=== PATIENT | female | born 1935 | race Caucasian/White ===

== ENCOUNTER 2019-02-15 09:03 | Emergency (ER) | payer MEDICARE, OTHER ==
[~2019-02-15] VITALS: Ht 157.5 cm; Wt 72.7 kg
[2019-02-15] MEDS ORDERED: LOSA50TA88 PO ×2 (09:16→10:46)
[2019-02-15] MEDS ORDERED: METO50TA7 PO ×2 (09:16→10:46)
[2019-02-15] MEDS ORDERED: ABIL1TAB13 PO ×2 (09:16→10:46)
[2019-02-15] MEDS ORDERED: DEPA1TAB PO (09:16)
[2019-02-15] MEDS ORDERED: CELE10TA PO ×2 (09:17→10:46)
[2019-02-15] MEDS ORDERED: AMLO-183 PO ×2 (09:18→10:46)
[2019-02-15] MEDS ORDERED: LEVO50TA5 PO ×2 (09:18→10:46)
[2019-02-15] MEDS ORDERED: RANI15TA PO (09:18)
[2019-02-15] MEDS ORDERED: IBAN150T6 PO ×2 (09:18→10:46)
[2019-02-15 10:27] VITALS: BP 137/69
[2019-02-15] MEDS ORDERED: DIVA1TAB48 PO (10:46)
[2019-02-15] MEDS ORDERED: RANI1TAB38 PO (10:46)
== END 2019-02-15 11:00 | disposition home or self-care (01) ==
LOC: M ED 09:03
DX: Z76.0 Encounter for issue of repeat prescription (principal); I10 Essential (primary) hypertension; E78.5 Hyperlipidemia, unspecified; E03.9 Hypothyroidism, unspecified; F33.9 Major depressive disorder, recurrent, unspecified; F41.9 Anxiety disorder, unspecified; Z79.899 Other long term (current) drug therapy; Z79.890 Hormone replacement therapy

== ENCOUNTER → 2019-03-13 | Outpatient (REF) | payer MEDICARE, OTHER ==
[~2019-03-13] MED LIST: ABIL1TAB13 PO; AMLO-183 PO; CELE10TA PO; DEPA1TAB PO; DIVA1TAB48 PO; IBAN150T6 PO; LEVO50TA5 PO; LOSA50TA88 PO; METO50TA7 PO; RANI15TA PO; RANI1TAB38 PO
[2019-03-13 16:49] LABS: BASO % 0.5 % (0.0-1.0); EOS # 0.3 10^3/uL (0.0-0.50); EOS % 3.8 % (0.0-3.0); HEMATOCRIT 41.3 % (36.0-47.0); HEMOGLOBIN 13.4 g/dl (12.0-15.5); LYMPH # 2.3 10^3/uL (1.5-4.5); LYMPH % 31.6 % (24.0-44.0); MEAN CORPUSCULAR HEMOGLOBIN 31.3 pg (27.0-33.0); MEAN CORPUSCULAR HGB CONC 32.4 g/dl (32.0-36.5); MEAN CORPUSCULAR VOLUME 96.5 fl (80.0-96.0); MONO # 0.8 10^3/uL (0.0-0.8); MONO % 11.3 % (0.0-5.0); NEUTROPHILS # 3.8 10^3/uL (1.8-7.7); NEUTROPHILS % 52.5 % (36.0-66.0); PLATELET COUNT, AUTOMATED 183 10^3/uL (150-450); RED BLOOD COUNT 4.28 10^6/uL (4.00-5.40); WHITE BLOOD COUNT 7.3 10^3/uL (4.0-10.0)
[2019-03-13 17:20] LABS: CALCIUM LEVEL 9.4 MG/DL (8.8-10.2); CHOLESTEROL RISK RATIO 3.407 (<5); CREATININE FOR GFR 1.21 MG/DL (0.55-1.30); GLOMERULAR FILTRATION RATE 45.4 (>32); POTASSIUM SERUM 4.6 MEQ/L (3.5-5.1); THYROID STIMULATING HORMONE 2.41 uIU/ML (0.358-3.740)
== END ==
LOC: M SFHCPLAZ 14:35
PROVIDERS: ATTEND Family Medicine
DX: E03.9 Hypothyroidism, unspecified (principal); E78.5 Hyperlipidemia, unspecified; I10 Essential (primary) hypertension; R00.1 Bradycardia, unspecified
CPT/HCPCS: 80048; 80061; 84443; 85025; G0463

== ENCOUNTER → 2019-04-17 | Outpatient (CLI) | payer MEDICARE, OTHER ==
--- NOTE | 2019-04-26 10:52 | DEXA ---
AP SPINE L1 - L4 1.130 -0.5 1.4 LT FEMUR TOTAL 0.723 -2.3 -0.1 LT NECK 0.714 -2.3 -0.1 RT FEMUR TOTAL 0.727 -2.2 -0.1 RT NECK 0.738 -2.2 0.1 OTHER COMMENTS: Normal bone densitometry of the spine. There is low bone density of the hips. FOLLOW-UP: Recommendation for the next bone density exam: 2 years. MELINDA
== END ==
LOC: M WHC 12:57
PROVIDERS: ATTEND Family Medicine
DX: M81.0 Age-related osteoporosis without current pathological fracture (principal)

== ENCOUNTER → 2019-04-21 | Outpatient (REF) | payer MEDICARE, OTHER ==
[2019-04-21 17:11] LABS: CHOLESTEROL RISK RATIO 3.68 (<5)
== END ==
LOC: M SFHCPLAZ 14:46
DX: E78.5 Hyperlipidemia, unspecified (principal); R45.86 Emotional lability

== ENCOUNTER → 2019-04-25 | Outpatient (REF) | payer MEDICARE, OTHER ==
[2019-04-25 14:17] LABS: FOLATE 11.4 NG/ML
[2019-04-30 15:15] LABS: CERULOPLASMIN 26.1 mg/dL (19.0-39.0); VITAMIN B1 LEVEL WHOLE BLOOD 148.8 nmol/L (66.5-200.0); VITAMIN B6,PYRIDOXAL PHOSPHATE 2.3 ug/L (2.0-32.8); VITAMIN E(ALPHA TOCOPHEROL) 9.4 mg/L (9.0-29.0); VITAMIN E(GAMMA TOCOPHEROL) 0.8 mg/L (0.5-4.9)
== END ==
LOC: M LABDRAW1 12:40
PROVIDERS: ATTEND Psychiatry & Neurology Neurology
DX: D51.9 Vitamin B12 deficiency anemia, unspecified (principal); E51.9 Thiamine deficiency, unspecified; R26.9 Unspecified abnormalities of gait and mobility; R41.3 Other amnesia; E83.01 Wilson's disease

== ENCOUNTER → 2019-07-26 | Outpatient (REF) | payer MEDICARE, OTHER ==
[~2019-07-26] MED LIST changes: +ASPI81TA85 PO; +BACI500O21 TOP
[2019-07-26 16:18] LABS: APPEARANCE, URINE HAZY (CLEAR); BACTERIA, URINE AUTO 3+ (NEGATIVE); BILIRUBIN, URINE AUTO NEGATIVE (NEGATIVE); BLOOD, URINE BLOOD 1+ (NEGATIVE); COLOR, URINE YELLOW (YELLOW); GLUCOSE, URINE (UA) AUTO NEGATIVE (NEGATIVE); KETONE, URINE AUTO NEGATIVE (NEGATIVE); LEUKOCYTE ESTERASE, URINE AUTO 3+ (NEGATIVE); NITRITE, URINE AUTO NEGATIVE (NEGATIVE); PROTEIN, URINE AUTO NEGATIVE (NEGATIVE); RBC, URINE AUTO 2 /HPF (0-3); SPECIFIC GRAVITY URINE AUTO 1.012 (1.002-1.035); SQUAMOUS EPITHELIAL CELL UR AU 0 /HPF (0-6); UROBILINOGEN, URINE AUTO 0.2 mg/dL (0.0-2.0); WBC, URINE AUTO 33 /HPF (0-3)
== END ==
LOC: M SFHCLERA 13:39
PROVIDERS: ATTEND Family Medicine
DX: R35.0 Frequency of micturition (principal)

== ENCOUNTER 2019-07-30 07:47 | Emergency (ER) | payer MEDICARE, OTHER ==
[~2019-07-30] VITALS: Ht 157.5 cm; Wt 72.5 kg
[~2019-07-30 07:47] MED LIST changes: -ASPI81TA85 PO; -BACI500O21 TOP
[2019-07-30] MEDS ORDERED: ASPI81TA85 PO (08:26)
[2019-07-30] MEDS ORDERED: LIDOCAINE W/EPINEPHRINE 1% 20ML VIAL SC ONE (08:30)
--- NOTE | 2019-07-30 08:50 | REP ---
Clinical: Trauma. Fall. Technique: AP, lateral, bilateral oblique views of the left ankle. Findings: Osteopenia and generalized age-related changes are appreciated. No acute fracture or dislocation. Joint spaces and ankle mortise are intact. Impression: No acute fracture or dislocation. Electronically Signed by Dom Hernandez MD 07/30/2019 08:42 A
--- NOTE | 2019-07-30 08:52 | REP ---
Clinical: Trauma. Technique: AP, lateral, bilateral oblique views of the left foot. Findings: Osteopenia and degenerative changes are appreciated. Evidence for old injury involving the fifth toe phalanx. No obvious acute fracture or dislocation appreciated. No subcutaneous emphysema. No foreign body. Impression: No obvious acute fracture or dislocation. Electronically Signed by Dom Hernandez MD 07/30/2019 08:43 A
[2019-07-30] MEDS ORDERED: BACI500O21 TOP (11:04)
[2019-07-30 11:07] VITALS: BP 131/64
== END 2019-07-30 11:23 | disposition home or self-care (01) ==
LOC: M ED 07:47
DX: S93.402A Sprain of unspecified ligament of left ankle, initial encounter (principal); S51.811A Laceration without foreign body of right forearm, initial encounter; W19.XXXA Unspecified fall, initial encounter; Y92.099 Unspecified place in other non-institutional residence as the place of occurrence of the external cause; Y93.9 Activity, unspecified; Y99.9 Unspecified external cause status; F32.9 Major depressive disorder, single episode, unspecified; I10 Essential (primary) hypertension; E03.9 Hypothyroidism, unspecified; K21.9 Gastro-esophageal reflux disease without esophagitis; Z87.891 Personal history of nicotine dependence; Z79.82 Long term (current) use of aspirin; Z79.899 Other long term (current) drug therapy

== ENCOUNTER → 2019-09-26 | Outpatient (CLI) | payer MEDICARE, OTHER ==
[~2019-09-26] MED LIST changes: +ASPI81TA85 PO; +BACI500O21 TOP
--- NOTE | 2019-09-26 14:24 | REP ---
Acute abdominal series of three views including PA chest and supine upright abdomen: PA chest: There are no comparisons. Lung ch are clear. Cardiac size is normal. The shakira, mediastinum, skeletal structures are unremarkable. There is no free subdiaphragmatic air. The right hemidiaphragm is elevated. There are postsurgical changes in the right humeral head and neck. Impression: There is no free subdiaphragmatic air. Abdomen, supine upright views: The bowel gas pattern is normal. There are calcifications in the pelvis, likely phleboliths. Abdominal aortic aneurysm versus abdominal aortic tortuosity. There is degenerative disc disease in the lumbar spine. There is bilateral hip osteoarthritis. Electronically Signed by Aaron Castillo MD 09/26/2019 01:14 P
== END ==
LOC: M LRY 11:52
PROVIDERS: ATTEND Family Medicine
DX: M51.36 Other intervertebral disc degeneration, lumbar region (principal); M16.0 Bilateral primary osteoarthritis of hip; K59.00 Constipation, unspecified; R35.0 Frequency of micturition
CPT/HCPCS: 74021; 81002; 87088; 87186; G0463

== ENCOUNTER → 2019-09-26 | Outpatient (REF) | payer MEDICARE, OTHER | LOC: M SFHCLERA 12:00 | PROVIDERS: ATTEND Family Medicine | DX: R35.0 Frequency of micturition (principal) ==

== ENCOUNTER → 2019-10-11 | Outpatient (REF) | payer MEDICARE, OTHER ==
[2019-10-11 17:21] LABS: APPEARANCE, URINE CLOUDY (CLEAR); BACTERIA, URINE AUTO NEGATIVE (NEGATIVE); BILIRUBIN, URINE AUTO NEGATIVE (NEGATIVE); BLOOD, URINE BLOOD 1+ (NEGATIVE); COLOR, URINE YELLOW (YELLOW); GLUCOSE, URINE (UA) AUTO NEGATIVE (NEGATIVE); KETONE, URINE AUTO NEGATIVE (NEGATIVE); LEUKOCYTE ESTERASE, URINE AUTO 3+ (NEGATIVE); MUCUS, URINE SMALL (NEGATIVE); NITRITE, URINE AUTO NEGATIVE (NEGATIVE); PROTEIN, URINE AUTO NEGATIVE (NEGATIVE); RBC, URINE AUTO 54 /HPF (0-3); SPECIFIC GRAVITY URINE AUTO 1.015 (1.002-1.035); SQUAMOUS EPITHELIAL CELL UR AU 3 /HPF (0-6); TRANSITIONAL EPITHELIAL AUTO 5 /HPF; UROBILINOGEN, URINE AUTO 0.2 mg/dL (0.0-2.0); WBC, URINE AUTO TNTC /HPF (0-3)
== END ==
LOC: M SFHCLERA 11:10
PROVIDERS: ATTEND Family Medicine
DX: R35.0 Frequency of micturition (principal)

== ENCOUNTER → 2019-11-02 | Outpatient (REF) | payer MEDICARE, OTHER ==
[~2019-11-02] MED LIST changes: +ARIC1TAB PO; +METO1TAB87 PO; +OMEP40CA97 PO; +SULF1TAB93 PO; +SYNT50TA PO
[2019-11-02 16:31] LABS: APPEARANCE, URINE CLOUDY (CLEAR); BACTERIA, URINE AUTO 3+ (NEGATIVE); BILIRUBIN, URINE AUTO NEGATIVE (NEGATIVE); BLOOD, URINE BLOOD 1+ (NEGATIVE); CALCIUM OXALATE CRYSTALS LARGE; COLOR, URINE YELLOW (YELLOW); GLUCOSE, URINE (UA) AUTO NEGATIVE (NEGATIVE); KETONE, URINE AUTO NEGATIVE (NEGATIVE); LEUKOCYTE ESTERASE, URINE AUTO 3+ (NEGATIVE); MUCUS, URINE SMALL (NEGATIVE); NITRITE, URINE AUTO NEGATIVE (NEGATIVE); PROTEIN, URINE AUTO NEGATIVE (NEGATIVE); RBC, URINE AUTO 23 /HPF (0-3); SPECIFIC GRAVITY URINE AUTO 1.023 (1.002-1.035); SQUAMOUS EPITHELIAL CELL UR AU 0 /HPF (0-6); UROBILINOGEN, URINE AUTO 0.2 mg/dL (0.0-2.0); WBC, URINE AUTO TNTC /HPF (0-3)
== END ==
LOC: M SFHCLERA 15:53
PROVIDERS: ATTEND Nurse Practitioner Family
DX: R39.9 Unspecified symptoms and signs involving the genitourinary system (principal)
CPT/HCPCS: 81001; 81002; 87088; 87186; G0463

== ENCOUNTER 2019-11-14 14:01 | Inpatient (IN) | payer MEDICARE, OTHER ==
[~2019-11-14] VITALS: Ht 160 cm; Wt 79.9 kg
[2019-11-14] MEDS: NS 1,000 ML IV SCH ×3 (00:30→21:05)
[~2019-11-14 14:01] MED LIST changes: -ARIC1TAB PO; -METO1TAB87 PO; -OMEP40CA97 PO; -SULF1TAB93 PO; -SYNT50TA PO
[2019-11-14 14:40] LABS: BASO # 0.1 10^3/uL (0.0-0.2); BASO % 0.5 % (0.0-1.0); EOS # 0.4 10^3/uL (0.0-0.5); EOS % 3.8 % (0.0-3.0); HEMATOCRIT 37.2 % (36.0-47.0); HEMOGLOBIN 12.3 g/dl (12.0-15.5); LYMPH # 1.7 10^3/uL (1.5-5.0); LYMPH % 16.9 % (24.0-44.0); MEAN CORPUSCULAR HEMOGLOBIN 30.8 pg (27.0-33.0); MEAN CORPUSCULAR HGB CONC 33.1 g/dl (32.0-36.5); MONO # 1.1 10^3/uL (0.0-0.8); MONO % 10.9 % (0.0-5.0); NEUTROPHILS # 6.6 10^3/uL (1.5-8.5); NEUTROPHILS % 67.5 % (36.0-66.0); PLATELET COUNT, AUTOMATED 220 10^3/uL (150-450); WHITE BLOOD COUNT 9.8 10^3/uL (4.0-10.0)
--- NOTE | 2019-11-14 14:59 | REP ---
Portable chest x-ray: Single view. History: Trauma. Comparison chest x-ray: September 26, 2019. Findings: Right hemidiaphragm remains somewhat elevated. Monitoring electrodes are seen. Lungs are well inflated and clear. Heart is not felt to be enlarged. The thoracic aorta is calcific. There is minimal linear fibrosis in the left perihilar region unchanged. Old post-traumatic and postsurgical changes are noted in the right humeral head. No acute bony abnormality. Impression: Elevated right hemidiaphragm. Linear fibrosis left perihilar region. Otherwise no acute disease. Electronically Signed by Rohan Clinton MD 11/14/2019 02:51 P
[2019-11-14 15:16] LABS: ALBUMIN 3.8 GM/DL (3.2-5.2); ALT/SGPT 18 U/L (12-78); BILIRUBIN,DIRECT 0.2 MG/DL (0.0-0.2); BILIRUBIN,TOTAL 0.4 MG/DL (0.2-1.0); BLOOD UREA NITROGEN 38 MG/DL (7-18); CALCIUM LEVEL 9.5 MG/DL (8.8-10.2); CARBON DIOXIDE LEVEL 20 MEQ/L (21-32); CHLORIDE LEVEL 108 MEQ/L (98-107); CK-MB VALUE MASS 7.5 NG/ML (<3.6); CPK CREATINE PHOSPHOKINASE 250 U/L (26-192); CREATININE FOR GFR 1.91 MG/DL (0.55-1.30); GLOMERULAR FILTRATION RATE 26.7 (>32); GLUCOSE, FASTING 100 MG/DL (70-100); POTASSIUM SERUM 4.6 MEQ/L (3.5-5.1); SODIUM LEVEL 138 MEQ/L (136-145); TOTAL PROTEIN 7.9 GM/DL (6.4-8.2); TROPONIN I < 0.02 NG/ML (< 0.10)
--- NOTE | 2019-11-14 15:24 | REP ---
CT BRAIN WITHOUT IV CONTRAST: CT brain performed without IV contrast. Coronal reconstruction images are performed. There is moderate atrophy. There is no midline shift or mass effect. There are mild periventricular small vessel ischemic changes likely chronic in nature. There is no acute intracranial hemorrhage or extra-axial fluid collection. No skull fracture is seen. There are vascular calcifications in the carotid siphons. IMPRESSION: Chronic atrophy and periventricular small vessel ischemic change. No acute intracranial hemorrhage or skull fracture. Electronically Signed by Aaron Wilkinson MD 11/15/2019 09:12 A
--- NOTE | 2019-11-14 15:34 | REP ---
CT CERVICAL SPINE: CT cervical spine performed without the use of intravenous contrast. Sagittal and coronal reconstruction images are performed. There is no evidence of compression fracture. Vertebral bodies are normal in height and well aligned. There is no prevertebral soft tissue swelling. There is moderate diffuse spurring. There is moderate disc space narrowing at C3-4, C4-5 and C5-6 with mild disc space narrowing at C6-7. There is diffuse narrowing, sclerosis and spurring at the posterior facet joints. Small disc protrusions and posterior spurs are seen at multiple levels without significant spinal stenosis. IMPRESSION: Diffuse degenerative changes. No evidence of acute fracture or dislocation. Electronically Signed by Aaron Wilkinson MD 11/15/2019 09:14 A
--- NOTE | 2019-11-14 15:35 | REP ---
CT MAXILLOFACIAL BONES: Axial CT maxillofacial bones performed. Sagittal and coronal reconstruction images are performed. There is no evidence of fracture of the maxillofacial bones. Mandible and zygomatic arches are intact. Paranasal sinuses demonstrate no air fluid levels. Globes are intact. IMPRESSION: No evidence of maxillofacial bone fracture. Electronically Signed by Aaron Wilkinson MD 11/15/2019 09:15 A
[2019-11-14] MEDS ORDERED: SYNT50TA PO (16:37)
[2019-11-14] MEDS ORDERED: SULF1TAB93 PO (16:37)
[2019-11-14] MEDS ORDERED: OMEP40CA97 PO (16:41)
[2019-11-14] MEDS ORDERED: METO1TAB87 PO (16:42)
--- NOTE | 2019-11-14 18:11 | HPEPDOC ---
[facility] Medical History & Physical Date of Admission Nov 14, 2019 Date of Service: Nov 14, 2019 History and Physical CHIEF COMPLAINT: Altered mental status, slurred speech HISTORY OF PRESENT ILLNESS: 84 yo female brought to ED by family for concerns of roughly two week history of worsening altered mental status, falls and slurred speech. at bedside notes visual and auditory hallucinations. She follows with PCP locally, but moved here from [place], where he states a doctor there told him she has Parkinson's disease. PAST MEDICAL HISTORY: #HTN #depresssion #osteoporosis #GERD #hypothyroidism ALLERGIES: Please see below. HOME MEDICATIONS: Please see below. PHYSICAL EXAMINATION: VITAL SIGNS: See below GENERAL APPEARANCE: elderly, frail HEENT: NC/AT, EOMI, PERRL CARDIOVASCULAR: +S1S2, RRR LUNGS: CTA B/L ABDOMEN: soft, NT, +BS EXTREMITIES: no edema NEUROLOGICAL: no gross focal deficits, sensation grossly intact throughout, strength 5/5 B/L upper/lower extremities PSYCHIATRIC: awake, alert, oriented to person, place with prompting LABORATORY DATA: See below. MICROBIOLOGY: Please see below. ASSESSMENT: 84 yo female for altered mental status, slurred speech, visual/auditory hallucinations and falls, PMHx HTN, dyslipidemia, GERD, hypothyroidism, possibly Parkinson's. #AMS - unclear etiology - evaluated for infectious process - parkinson's? worsening baseline dementia? #falls - PT/OT #slurred speech - CT negative for CVA - MRI/MRA pending #HTN - continue home meds - ACEI on hold #ERLINDA - IV fluids - UA unrevealing - hold nephrotoxic medications - was on bactrim for UTI #hypothyroidism - continue synthroid #OP #GERD - continue PPI #depression - abilify, celexa #DVT prophylaxis - heparin sc Vital Signs Vital Signs Date Time Temp Pulse Resp B/P (MAP) Pulse Ox O2 Delivery O2 Flow Rate FiO2 11/14/19 16:07 58 118/63 (81) 63 128/58 (81) 11/14/19 16:00 18 95 Room Air 11/14/19 14:31 97.7 Laboratory Data Labs 24H Laboratory Tests 2 11/14/19 14:17: Immature Granulocyte % (Auto) 0.4, Neutrophils (%) (Auto) 67.5H, Lymphocytes (%) (Auto) 16.9L, Monocytes (%) (Auto) 10.9H, Eosinophils (%) (Auto) 3.8H, Basophils (%) (Auto) 0.5, Neutrophils # (Auto) 6.6, Lymphocytes # (Auto) 1.7, Monocytes # (Auto) 1.1H, Eosinophils # (Auto) 0.4, Basophils # (Auto) 0.1, Nucleated Red Blood Cells % (auto) 0.0, Anion Gap 10, Glomerular Filtration Rate 26.7L, Lactic Acid Level 2.6*H, Calcium Level 9.5, Total Bilirubin 0.4, Direct Bilirubin 0.2, Aspartate Amino Transf (AST/SGOT) 26, Alanine Aminotransferase (ALT/SGPT) 18, Alkaline Phosphatase 169H, Total Creatine Kinase 250H, Creatine Kinase MB 7.5H, Creatine Kinase MB Relative Index 3.00, Troponin I < 0.02, Total Protein 7.9, Albumin 3.8, Albumin/Globulin Ratio 0.93L, Thyroid Stimulating Hormone (TSH) 1.090 11/14/19 16:01: Urine Color YELLOW, Urine Appearance HAZY, Urine pH 5.0, Urine Specific [place] 1.019, Urine Protein NEGATIVE, Urine Glucose (UA) NEGATIVE, Urine Ketones TRACEH, Urine Blood NEGATIVE, Urine Nitrite NEGATIVE, Urine Bilirubin NEGATIVE, Urine Urobilinogen 0.2, Urine Leukocyte Esterase NEGATIVE, Urine WBC (Auto) 1, Urine RBC (Auto) 0, Urine Hyaline Casts (Auto) 25, Urine Bacteria (Auto) NEGATIVE, Urine Squamous Epithelial Cells 0, Urine Mucus (Auto) SMALL, Urine Sperm (Auto) CBC/BMP Laboratory Tests 11/14/19 14:17 Microbiology Microbiology 11/14/19 Blood Culture, Received Pending 11/14/19 Blood Culture, Received Pending Home Medications Scheduled Amlodipine/Atorvastatin (Amlodipine-Atorvast 5-10 mg) 1 Each Tablet, 1 TAB PO DAILY Aripiprazole (Abilify) 2 Mg Tablet, 2 MG PO QHS Aspirin (Aspir 81) 81 Mg Tablet.dr, 81 MG PO DAILY Citalopram Hydrobromide (Celexa) 10 Mg Tablet, 10 MG PO DAILY Ibandronate Sodium (Ibandronate Sodium) 150 Mg Tablet, 150 MG PO QMONTH Levothyroxine Sodium (Synthroid) 50 Mcg Tablet, 50 MCG PO DAILY Losartan Potassium (Losartan Potassium) 50 Mg Tablet, 50 MG PO DAILY Metoprolol Tartrate (Metoprolol Tartrate) 25 Mg Tablet, 25 MG PO BID Omeprazole (Omeprazole) 40 Mg Capsule.dr, 40 MG PO DAILY Sulfamethoxazole/Trimethoprim (Sulfamethoxazole-Tmp Ds Tablet) 1 Each Tablet, 1 TAB PO BID LAST DOSE ON THE NIGHT OF 11/14/19 Allergies Coded Allergies: No Known Allergies (Unverified , 02/15/19) A-FIB/CHADSVASC A-FIB History Current/History of A-Fib/PAF?: No Current PO Anticoag Therapy: No ENRIKE KOWALSKI MD Nov 14, 2019 16:33
[2019-11-14 19:01] LABS: CK-MB VALUE MASS 6.1 NG/ML (<3.6); CPK CREATINE PHOSPHOKINASE 214 U/L (26-192); MB/CK RELATIVE INDEX 2.85 (< OR =4); TROPONIN I < 0.02 NG/ML (< 0.10)
--- NOTE | 2019-11-14 19:24 | REPVR ---
PROCEDURE INFORMATION: Exam: MR Head Without Contrast Exam date and time: 11/14/2019 7:14 PM Age: 84 years old Clinical indication: Altered mental status/memory loss; Confusion or disorientation; Patient HX: Confusion disorientation; Additional info: CVA TECHNIQUE: Imaging protocol: MR of the head without contrast. COMPARISON: CT Head without contrast 11/14/2019 2:39 PM FINDINGS: Brain: Multiple foci of T2 lengthening are demonstrated in the periventricular and centrum semiovale white matter consistent with age-related small vessel gliosis. There is moderate age related parenchymal volume loss. Ventricles: The degree of ventricular dilatation is normal for age and/or degree of atrophy present. Bones/joints: Unremarkable. Soft tissues: Unremarkable. Sinuses: Normal as visualized. No acute sinusitis. Mastoid air cells: Normal as visualized. No mastoid effusion. Orbits: Unremarkable. 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 IMPRESSION: 1. Multiple foci of T2 lengthening are demonstrated in the periventricular and centrum semiovale white matter consistent with age-related small vessel gliosis. 2. The degree of ventricular dilatation is normal for age and/or degree of atrophy present. 3. 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 4. No acute intracranial findings. Electronically signed by: Nj Corrales On 11/14/2019 19:23:58 PM
--- NOTE | 2019-11-14 19:28 | REPVR ---
PROCEDURE INFORMATION: Exam: MR Angiogram Head Without Contrast, Arteries Exam date and time: 11/14/2019 7:14 PM Age: 84 years old Clinical indication: Cognitive deficit; Altered mental status; Patient HX: Confusion disorientation; Additional info: CVA TECHNIQUE: Imaging protocol: MR angiogram head without contrast. Exam focused on the arteries. 3D rendering: MIP and/or 3D reconstructed images were created by the technologist. COMPARISON: CT Head without contrast 11/14/2019 2:39 PM FINDINGS: Right internal carotid artery: Luminal irregularity in the carotid siphon and cavernous carotid on the right consistent with mild atherosclerosis. No significant stenosis. Right anterior cerebral artery: No occlusion or significant stenosis. No aneurysm. Right middle cerebral artery: No occlusion or significant stenosis. No aneurysm. Right posterior cerebral artery: No occlusion or significant stenosis. No aneurysm. Right vertebral artery: No occlusion or significant stenosis. No aneurysm. Left internal carotid artery: Luminal irregularity in the carotid siphon and cavernous carotid on the left consistent with mild atherosclerosis. No significant stenosis. Left anterior cerebral artery: No occlusion or significant stenosis. No aneurysm. Left middle cerebral artery: No occlusion or significant stenosis. No aneurysm. Left posterior cerebral artery: No occlusion or significant stenosis. No aneurysm. Left vertebral artery: No occlusion or significant stenosis. No aneurysm. Basilar artery: Tortuous basilar artery. Other findings: Motion artifact degrades the images. IMPRESSION: 1. Mild atherosclerotic changes demonstrated in the carotid siphons and cavernous carotid arteries bilaterally. 2. Tortuous basilar artery. 3. Motion artifact degrades the images and limits interpretation. Electronically signed by: Nj Corrales On 11/14/2019 19:28:04 PM
[2019-11-14 19:55] VITALS: BP 125/58
--- NOTE | 2019-11-14 20:17 | ECGEPIP ---
[facility] - ED Test Date: 2019-11-14 Pat Name: DANNA GUZMAN Department: Room: - Gender: Female Tufter Operator: : 1935 Requested By: SONDRA GONZALEZ Order Number: [id number] Reading MD: Olivia Santana Measurements Intervals [place] Rate: 58 P: 29 NE: 140 QRS: -49 QRSD: 118 T: -15 QT: 457 QTc: 451 Interpretive Statements SINUS BRADYCARDIA INCOMPLETE RIGHT BUNDLE BRANCH BLOCK LEFT ANTERIOR FASCICULAR BLOCK MINIMAL VOLTAGE CRITERIA FOR LVH, CONSIDER NORMAL VARIANT MODERATE T-WAVE ABNORMALITY, CONSIDER ANTERIOR ISCHEMIA NO PRIOR Electronically Signed on 11-14-2019 20:16:27 EDT by Olivia Santana
[2019-11-14] MEDS: HEPARIN SOD (PORCINE) 5000 UNITS/ML VIAL (J1644 PER 1000UNITS) SQ SCH (21:04)
[2019-11-14] MEDS: METOPROLOL TART 25 MG TABLET PO SCH (21:05)
[2019-11-14] MEDS: ARIPiprazole 2 MG TAB PO SCH (21:07)
[2019-11-14 23:59] VITALS: BP 138/67
[2019-11-15 04:00] VITALS: BP 118/58
[2019-11-15 05:30] LABS: HEMATOCRIT 31.4 % (36.0-47.0); MEAN CORPUSCULAR HEMOGLOBIN 30.7 pg (27.0-33.0); MEAN CORPUSCULAR HGB CONC 32.8 g/dl (32.0-36.5); MEAN CORPUSCULAR VOLUME 93.5 fl (80.0-96.0); PLATELET COUNT, AUTOMATED 178 10^3/uL (150-450); RED BLOOD COUNT 3.36 10^6/uL (4.00-5.40); WHITE BLOOD COUNT 7.2 10^3/uL (4.0-10.0)
[2019-11-15 05:43] LABS: HEMOGLOBIN 10.3 g/dl (12.0-15.5)
[2019-11-15 05:46] LABS: ALBUMIN 3.2 GM/DL (3.2-5.2); BILIRUBIN,TOTAL 0.4 MG/DL (0.2-1.0); CALCIUM LEVEL 8.4 MG/DL (8.8-10.2); CREATININE FOR GFR 1.5 MG/DL (0.55-1.30); GLOMERULAR FILTRATION RATE 35.3 (>32); POTASSIUM SERUM 4.2 MEQ/L (3.5-5.1); TOTAL PROTEIN 6.4 GM/DL (6.4-8.2)
[2019-11-15] MEDS: LEVOTHYROXINE 50MCG TABLET (0.05MG) PO SCH (06:05)
[2019-11-15 08:00] VITALS: BP 132/60
[2019-11-15] MEDS: METOPROLOL TART 25 MG TABLET PO SCH ×2 (10:06→20:18)
[2019-11-15] MEDS: ASPIRIN 81 MG ENTERIC TAB PO SCH (10:07)
[2019-11-15] MEDS: amLODIPine 5 MG TAB PO SCH (10:08)
[2019-11-15] MEDS: OMEPRAZOLE 20 MG CAP PO SCH (10:08)
[2019-11-15] MEDS: HEPARIN SOD (PORCINE) 5000 UNITS/ML VIAL (J1644 PER 1000UNITS) SQ SCH ×2 (10:08→20:17)
[2019-11-15] MEDS: ATORVASTATIN 10 MG TAB PO SCH (10:08)
--- NOTE | 2019-11-15 10:26 | IPNPDOC ---
Text Note Date of Service The patient was seen on 11/15/19. NOTE S: Patient seen and examined at bedside. Patient sleeping on arrival, vitals stable. O: PHYSICAL EXAMINATION: VITAL SIGNS: See below GENERAL APPEARANCE: elderly, frail HEENT: NC/AT CARDIOVASCULAR: +S1S2, RRR LUNGS: CTA B/L ABDOMEN: soft, NT, +BS EXTREMITIES: no edema LABORATORY DATA: See below. MICROBIOLOGY: Please see below. ASSESSMENT: 84 yo female for altered mental status, slurred speech, visual/auditory hallucinations and falls, PMHx HTN, dyslipidemia, GERD, hypo thyroidism, possibly Parkinson's. #AMS - parkinson's? worsening baseline dementia? - neurology c/s pending #falls - PT/OT #slurred speech - CT negative for CVA - MRI/MRA pending #HTN - continue home meds - ACEI on hold #ERLINDA - improving - IV fluids - UA unrevealing - hold nephrotoxic medications - was on bactrim for UTI #hypothyroidism - continue synthroid #OP #GERD - continue PPI #depression - abilify, celexa #DVT prophylaxis - heparin sc VS,Fishbone, I+O VS, Fishbone, I+O Laboratory Tests 11/14/19 14:17 11/15/19 04:56 Vital Signs Date Time Temp Pulse Resp B/P (MAP) Pulse Ox O2 Delivery O2 Flow Rate FiO2 11/15/19 10:06 54 11/15/19 08:00 97.0 18 132/60 (84) 98 Room Air I&O- Last 24 Hours up to 6 AM 11/15/19 06:00 Intake Total 1170 ml Output Total 200 ml Balance 970 ml ENRIKE KOWALSKI MD Nov 15, 2019 10:26
[2019-11-15 12:00] VITALS: BP 149/64
[2019-11-15] MEDS: NS 1,000 ML IV SCH ×2 (13:44→20:19)
[2019-11-15] MEDS: CitaloPRAM (CeleXA) 10 MG TABLET PO SCH (13:44)
[2019-11-15 16:00] VITALS: BP 146/76
[2019-11-15 20:00] VITALS: BP 122/58
[2019-11-15] MEDS: ARIPiprazole 2 MG TAB PO SCH (20:18)
[2019-11-16] VITALS: BP 156/82
[2019-11-16 04:00] VITALS: BP 130/68
[2019-11-16] MEDS: LEVOTHYROXINE 50MCG TABLET (0.05MG) PO SCH (05:53)
--- NOTE | 2019-11-16 06:20 | CR ---
DATE OF CONSULTATION: 11/15/2019 REFERRING PHYSICIAN: Dr. Micheal Warren REASON FOR CONSULTATION: Altered mental status. HISTORY OF PRESENT ILLNESS: Katiana Serna is an 84-year-old woman who was admitted to [facility] due to altered mental status, falls and slurring of speech. had noted visual and auditory hallucinations. The patient moved here from [place]. She had stated at the time of admission that a doctor in [place] told them that she has parkinsonism. The patient is currently unable to provide any meaningful history. The patient states that she does not know why she came to hospital. She appears confused. According to nurses they have noted shuffling gait when she walks with her walker. When she wakes up from sleep or naps she seems to do things with her hands in the air as if she is interacting with something. Her was not available when I saw her. It needs to be confirmed with the patient's if she talks, screams, yells or acts out her dreams at night. The patient denies any headaches, neck pain, back pain, dysphagia, diplopia or urinary incontinence. DIAGNOSTIC STUDIES: MRI scan of brain was reviewed and showed small vessel ischemic disease of brain, atrophy and proportionate enlargement of ventricles. MRA brain showed internal carotid artery atherosclerosis. CT scan of cervical spine showed degenerative disk disease. LABORATORY DATA: CBC was normal. Creatinine was 1.5. Lactic acid was 2.6. Ammonia was 10, CK was 214, alkaline phosphatase was 190 with normal ALT and AST. TSH was 1.09 and RPR was negative. PAST MEDICAL HISTORY: 1. Hypertension. 2. Depression. 3. Osteoporosis. 4. Acid reflux. 5. Hypothyroidism. SOCIAL HISTORY: She denies smoking, alcohol or illicit drugs. FAMILY HISTORY: She denies any family history of parkinsonism. ALLERGIES: NONE. HOME MEDICATIONS: - Abilify 2 mg by mouth daily - aspirin 81 mg by mouth daily - Celexa 10 mg by mouth daily - IV ibandronate 150 mg by mouth daily - levothyroxine 50 mcg postoperative daily - losartan 50 mg by mouth daily - metoprolol 25 mg by mouth twice a day - Prilosec 40 mg by mouth daily - Bactrim 1 tablet by mouth twice a day - amlodipine/atorvastatin 5/10 mg by mouth daily REVIEW OF SYSTEMS: All systems were reviewed with the patient and were found to be noncontributory except as mentioned in the history present illness. PHYSICAL EXAMINATION: VITAL SIGNS: Temperature 97.4, pulse 58, respiratory 18, blood pressure 146/76, 95% saturation on room air. HEART: Regular rate and rhythm. LUNGS: Clear to auscultation. ABDOMEN: Soft, nontender, nondistended. EXTREMITIES: No pedal edema. No musculoskeletal abnormalities. No rash. NEUROLOGIC: No dysmetria. No tremor. The patient is awake, alert, oriented to self mostly. She was unable to tell me the year, month, day date, name of president or place. She was unable to spell the word world backwards. She was unable to do serial sevens. Her recall was 0/3 in five minutes. She is oriented to city and state. She appears to have difficulty with comprehension. Expressive speech appeared normal. Extraocular muscles are intact. No facial weakness. Tongue, uvula is midline. 5/5 strength in all four extremities. Deep tendon reflexes are 2+ throughout. Normal sensation. Normal [id number] testing. Gait is shuffling with walker. ASSESSMENT: 1. Suspected Lewy body dementia which can explain her parkinsonism, dementia and hallucinations. 2. Neuroleptic induced parkinsonism is in the differential diagnosis. It is also possible that her parkinsonism started as neuroleptic induced parkinsonism and she is also developing Lewy body dementia. 3. Idiopathic Parkinson's disease is unlikely as it would not cause altered mental status, confusion and hallucinations except in very late stages, on high doses of dopaminergic medications. I reviewed her outpatient record. The patient stated that she saw a primary care doctor, Dr. Curran in [place], [place] in 2018. She had Tremor as she was nervous that day. Dr. Curran told her that her facial expression looked as if she had Parkinson's. Dr. Curran prescribed her a medicine for Parkinsonism, but they did not remember its name. She took it for 3-4 months. She went to [place] to visit her son and saw another doctor there. She had started having visual hallucinations. They stopped that medication and gave her Abilify and Depakote. Abilify had also helped her depression so she continued to take it. This makes Lewy Body Dementia the most likely diagnosis as she had Parkinsonism long before she started Abilify and she had hallucinations with Dopaminergic medications. PLAN: 1. Aricept 5 mg by mouth in the morning and slowly increase it. 2. Discontinuation of Abilify should be the first step to see if her parkinsonism improves but it is possible that her hallucinations will get worse by discontinuation of very low dose Abilify. 3. Physical and occupational therapy and use of the walker. 4. Follow with our office in two weeks after hospital discharge. MELINDA
[2019-11-16 08:00] VITALS: BP 138/65
[2019-11-16 08:20] LABS: HEMATOCRIT 35.2 % (36.0-47.0); HEMOGLOBIN 11.4 g/dl (12.0-15.5); MEAN CORPUSCULAR HEMOGLOBIN 30.5 pg (27.0-33.0); MEAN CORPUSCULAR HGB CONC 32.4 g/dl (32.0-36.5); MEAN CORPUSCULAR VOLUME 94.1 fl (80.0-96.0); PLATELET COUNT, AUTOMATED 166 10^3/uL (150-450); RED BLOOD COUNT 3.74 10^6/uL (4.00-5.40)
[2019-11-16 08:42] LABS: CALCIUM LEVEL 8.5 MG/DL (8.8-10.2); CREATININE FOR GFR 1.1 MG/DL (0.55-1.30); GLOMERULAR FILTRATION RATE 50.5 (>32); POTASSIUM SERUM 4.2 MEQ/L (3.5-5.1)
[2019-11-16] MEDS: amLODIPine 5 MG TAB PO SCH (08:57)
[2019-11-16] MEDS: HEPARIN SOD (PORCINE) 5000 UNITS/ML VIAL (J1644 PER 1000UNITS) SQ SCH ×2 (08:57→20:05)
[2019-11-16] MEDS: ASPIRIN 81 MG ENTERIC TAB PO SCH (08:57)
[2019-11-16] MEDS: ATORVASTATIN 10 MG TAB PO SCH (08:57)
[2019-11-16] MEDS: DONEPEZIL 5 MG TAB PO SCH (08:58)
[2019-11-16] MEDS: CitaloPRAM (CeleXA) 10 MG TABLET PO SCH (08:58)
[2019-11-16] MEDS: METOPROLOL TART 25 MG TABLET PO SCH ×2 (08:58→20:07)
[2019-11-16] MEDS: OMEPRAZOLE 20 MG CAP PO SCH (08:58)
--- NOTE | 2019-11-16 11:41 | IPNPDOC ---
Text Note Date of Service The patient was seen on 11/16/19. NOTE S: Patient seen and examined at bedside. Feeling better today. O: PHYSICAL EXAMINATION: VITAL SIGNS: See below GENERAL APPEARANCE: elderly, frail HEENT: NC/AT CARDIOVASCULAR: +S1S2, RRR LUNGS: CTA B/L ABDOMEN: soft, NT, +BS EXTREMITIES: no edema LABORATORY DATA: See below. MICROBIOLOGY: Please see below. ASSESSMENT: 84 yo female for altered mental status, slurred speech, visual/auditory hallucinations and falls, PMHx HTN, dyslipidemia, GERD, hypothyroidism, possibly Parkinson's. #AMS - neurology c/s appreciated - f/u o/p in 2 weeks - suspect Lewy body dementia +/- neuroleptic induced parkinsonism - d/c abilify - start aricept 5mg daily - increase slowly #falls - PT/OT #slurred speech - CT negative for CVA - MRI/MRA possible empty sella syndrome #HTN - continue home meds - ACEI on hold - resume tomorrow #ERLINDA -resolved #hypothyroidism - continue synthroid #OP #GERD - continue PPI #depression - abilify, celexa #DVT prophylaxis - heparin sc VS,Fishbone, I+O VS, Fishbone, I+O Laboratory Tests 11/16/19 07:50 Vital Signs Date Time Temp Pulse Resp B/P (MAP) Pulse Ox O2 Delivery O2 Flow Rate FiO2 11/16/19 08:58 68 130/68 11/16/19 08:00 97.2 17 97 Room Air I&O- Last 24 Hours up to 6 AM 11/16/19 06:00 Intake Total 2580 ml Output Total 1000 ml Balance 1580 ml ENRIKE KOWALSKI MD Nov 16, 2019 11:41
[2019-11-16 12:00] VITALS: BP 162/82
[2019-11-16 16:00] VITALS: BP 154/70
[2019-11-16 20:00] VITALS: BP 149/67
[2019-11-17] VITALS: BP 134/64
[2019-11-17 04:00] VITALS: BP 132/67
[2019-11-17 05:48] LABS: HEMATOCRIT 34.1 % (36.0-47.0); HEMOGLOBIN 11.2 g/dl (12.0-15.5); MEAN CORPUSCULAR HEMOGLOBIN 30.7 pg (27.0-33.0); MEAN CORPUSCULAR HGB CONC 32.8 g/dl (32.0-36.5); MEAN CORPUSCULAR VOLUME 93.4 fl (80.0-96.0); PLATELET COUNT, AUTOMATED 183 10^3/uL (150-450); RED BLOOD COUNT 3.65 10^6/uL (4.00-5.40)
[2019-11-17 05:51] LABS: CALCIUM LEVEL 8.7 MG/DL (8.8-10.2); CREATININE FOR GFR 1.13 MG/DL (0.55-1.30)
[2019-11-17] MEDS: LEVOTHYROXINE 50MCG TABLET (0.05MG) PO SCH (06:31)
[2019-11-17] MEDS ORDERED: ARIC1TAB PO (07:59)
[2019-11-17 08:00] VITALS: BP 121/64
[2019-11-17] MEDS: ATORVASTATIN 10 MG TAB PO SCH (08:05)
[2019-11-17] MEDS: HEPARIN SOD (PORCINE) 5000 UNITS/ML VIAL (J1644 PER 1000UNITS) SQ SCH (08:05)
[2019-11-17] MEDS: amLODIPine 5 MG TAB PO SCH (08:05)
[2019-11-17] MEDS: ASPIRIN 81 MG ENTERIC TAB PO SCH (08:05)
[2019-11-17 08:06] VITALS: BP 132/67
[2019-11-17] MEDS: METOPROLOL TART 25 MG TABLET PO SCH (08:06)
[2019-11-17] MEDS: DONEPEZIL 5 MG TAB PO SCH (08:06)
[2019-11-17] MEDS: CitaloPRAM (CeleXA) 10 MG TABLET PO SCH (08:06)
[2019-11-17] MEDS: OMEPRAZOLE 20 MG CAP PO SCH (08:06)
--- NOTE | 2019-11-17 10:26 | DS.PDOC ---
Discharge Summary General Date of Admission Nov 14, 2019 at 16:26 Date of Discharge 11/17/19 Specialist/Consultants Involve: ELISSA BECKER MD Discharge Summary PROCEDURES PERFORMED DURING STAY: [None]. 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 HISTORY OF PRESENT ILLNESS: 84 yo female brought to ED by family for concerns of roughly two week history of worsening altered mental status, falls and slurred speech. at bedside notes visual and auditory hallucinations. She follows with PCP locally, but moved here from [place], where he states a doctor there told him she has Parkinson's disease. HOSPITAL COURSE: Patient admitted for further evaluation and treatment. Seen in consultation by neurology. Medication changes recommended, with outpatient DISCHARGE MEDICATIONS: Please see below. ALLERGIES: Please see below. PHYSICAL EXAMINATION ON DISCHARGE: VITAL SIGNS: See below GENERAL APPEARANCE: elderly, frail HEENT: NC/AT, EOMI, PERRL CARDIOVASCULAR: +S1S2, RRR LUNGS: CTA B/L ABDOMEN: soft, NT, +BS EXTREMITIES: no edema NEUROLOGICAL: no gross focal deficits, sensation grossly intact throughout, strength 5/5 B/L upper/lower extremities PSYCHIATRIC: AAOx3 LABORATORY DATA: Please see below. ACTIVITY: [As tolerated]. DIET: 2 gram sodium DISPOSITION: Discharge home DISCHARGE INSTRUCTIONS: 1. Follow up PCP in 3-5 days 2. Follow up neurology in 2 weeks DISCHARGE CONDITION: [Stable]. TIME SPENT ON DISCHARGE: 35 minutes. Vital Signs/I&Os Vital Signs Date Time Temp Pulse Resp B/P (MAP) Pulse Ox O2 Delivery O2 Flow Rate FiO2 11/17/19 08:06 61 132/67 11/17/19 08:00 96.9 17 94 Room Air l I&O- Last 24 Hours up to 6 AM 11/17/19 06:00 Intake Total 390 ml Output Total 1600 ml Balance -1210 ml Laboratory Data Labs 24H Laboratory Tests 2 11/17/19 05:14: Nucleated Red Blood Cells % (auto) 0.0, Anion Gap 5L, Glomerular Filtration Rate 49.0, Calcium Level 8.7L CBC/BMP Laboratory Tests 11/17/19 05:14 Microbiology Microbiology 11/14/19 Blood Culture - Preliminary, Resulted No Growth after 48 hours. All Specime... 11/14/19 Blood Culture - Preliminary, Resulted No Growth after 48 hours. All Specime... Discharge Medications Scheduled Amlodipine/Atorvastatin (Amlodipine-Atorvast 5-10 mg) 1 Each Tablet, 1 TAB PO DAILY, (Reported) Aspirin (Aspir 81) 81 Mg Tablet.dr, 81 MG PO DAILY, (Reported) Citalopram Hydrobromide (Celexa) 10 Mg Tablet, 10 MG PO DAILY, (Reported) Donepezil HCl (Aricept) 5 Mg Tablet, 5 MG PO DAILY Ibandronate Sodium (Ibandronate Sodium) 150 Mg Tablet, 150 MG PO QMONTH, (Reported) Levothyroxine Sodium (Synthroid) 50 Mcg Tablet, 50 MCG PO DAILY, (Reported) Losartan Potassium (Losartan Potassium) 50 Mg Tablet, 50 MG PO DAILY, (Reported) Metoprolol Tartrate (Metoprolol Tartrate) 25 Mg Tablet, 25 MG PO BID, (Reported) Omeprazole (Omeprazole) 40 Mg Capsule.dr, 40 MG PO DAILY, (Reported) Sulfamethoxazole/Trimethoprim (Sulfamethoxazole-Tmp Ds Tablet) 1 Each Tablet, 1 TAB PO BID, (Reported) LAST DOSE ON THE NIGHT OF 11/14/19 Allergies Coded Allergies: No Known Allergies (Unverified , 02/15/19) ENRIKE KOWALSKI MD Nov 17, 2019 10:26
--- NOTE | 2019-11-18 00:34 | ECGEPIP ---
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
== END 2019-11-17 13:12 | disposition home health service (06) | DRG 57 ==
LOC: M ED 14:01 → M ED INP 16:26 → ENRESERV 18:50 → M PCU 19:45
PROVIDERS: ADMIT Internal Medicine; ATTEND Internal Medicine
DX: G21.11 Neuroleptic induced parkinsonism (principal); N17.9 Acute kidney failure, unspecified; R41.82 Altered mental status, unspecified; R47.81 Slurred speech; R29.6 Repeated falls; I10 Essential (primary) hypertension; F32.9 Major depressive disorder, single episode, unspecified; M81.0 Age-related osteoporosis without current pathological fracture; K21.9 Gastro-esophageal reflux disease without esophagitis; E03.9 Hypothyroidism, unspecified; Z79.82 Long term (current) use of aspirin; Z79.899 Other long term (current) drug therapy; R00.1 Bradycardia, unspecified; F02.80 Dementia in other diseases classified elsewhere, unspecified severity, without behavioral disturbance, psychotic disturbance, mood disturbance, and anxiety; G31.83 Neurocognitive disorder with Lewy bodies; E23.6 Other disorders of pituitary gland

== ENCOUNTER → 2019-12-21 | Outpatient (REF) | payer MEDICARE, OTHER ==
[~2019-12-21] MED LIST changes: +ARIC1TAB PO; +METO1TAB87 PO; +OMEP40CA97 PO; +SULF1TAB93 PO; +SYNT50TA PO
[2019-12-21 16:29] LABS: APPEARANCE, URINE CLOUDY (CLEAR); BACTERIA, URINE AUTO 2+ (NEGATIVE); BILIRUBIN, URINE AUTO NEGATIVE (NEGATIVE); BLOOD, URINE BLOOD 1+ (NEGATIVE); CALCIUM OXALATE CRYSTALS MODERATE; COLOR, URINE YELLOW (YELLOW); GLUCOSE, URINE (UA) AUTO NEGATIVE (NEGATIVE); KETONE, URINE AUTO NEGATIVE (NEGATIVE); LEUKOCYTE ESTERASE, URINE AUTO 2+ (NEGATIVE); NITRITE, URINE AUTO NEGATIVE (NEGATIVE); PROTEIN, URINE AUTO NEGATIVE (NEGATIVE); RBC, URINE AUTO 5 /HPF (0-3); SQUAMOUS EPITHELIAL CELL UR AU 1 /HPF (0-6); UROBILINOGEN, URINE AUTO 0.2 mg/dL (0.0-2.0); WBC, URINE AUTO 159 /HPF (0-3)
== END ==
LOC: M SFHCPLAZ 16:02
PROVIDERS: ATTEND Family Medicine
DX: R39.15 Urgency of urination (principal)

== ENCOUNTER 2019-12-31 10:36 | Inpatient (IN) | payer MEDICARE, OTHER ==
[~2019-12-31] VITALS: Ht 157.5 cm; Wt 67.0 kg
[2019-12-31] MEDS ORDERED: LIDOCAINE 2% 5ML JELLY UROJET TOP ONE (11:15)
[2019-12-31 11:20] LABS: BASO % 0.3 % (0.0-1.0); EOS # 0.2 10^3/uL (0.0-0.5); EOS % 3.8 % (0.0-3.0); HEMATOCRIT 38.3 % (36.0-47.0); HEMOGLOBIN 12.4 g/dl (12.0-15.5); LYMPH # 1.7 10^3/uL (1.5-5.0); LYMPH % 29.9 % (24.0-44.0); MEAN CORPUSCULAR HEMOGLOBIN 30.3 pg (27.0-33.0); MEAN CORPUSCULAR HGB CONC 32.4 g/dl (32.0-36.5); MEAN CORPUSCULAR VOLUME 93.6 fl (80.0-96.0); MONO # 0.5 10^3/uL (0.0-0.8); MONO % 7.9 % (0.0-5.0); NEUTROPHILS # 3.4 10^3/uL (1.5-8.5); NEUTROPHILS % 57.9 % (36.0-66.0); PLATELET COUNT, AUTOMATED 172 10^3/uL (150-450); RED BLOOD COUNT 4.09 10^6/uL (4.00-5.40); WHITE BLOOD COUNT 5.8 10^3/uL (4.0-10.0)
--- NOTE | 2019-12-31 11:30 | REP ---
Clinical: Altered mental status. Comparison: 11/14/2019. Technique: Axial noncontrast images from the skull base to the vertex with coronal re-formations . Findings: Age-related atrophy and microvascular ischemic changes are appreciated. The ventricles and sulci are symmetric. Wilkinson-white differentiation is maintained. There is no evidence for acute intracranial hemorrhage, mass/mass effect, pathology or infarction. No extra-axial fluid collection. Calvarium is intact. Paranasal sinuses and mastoid air cells are clear. Impression: Age related atrophy and microvascular ischemic changes. No acute intracranial hemorrhage, infarction, or mass/mass effect. Electronically Signed by Dom Hernandez MD 12/31/2019 11:21 A
[2019-12-31 12:14] LABS: ACETAMINOPHEN LEVEL < 2.0 UG/ML (10.0-30.0); ALBUMIN 3.4 GM/DL (3.2-5.2); ALT/SGPT 22 U/L (12-78); BILIRUBIN,DIRECT 0.2 MG/DL (0.0-0.2); BILIRUBIN,TOTAL 0.5 MG/DL (0.2-1.0); BLOOD UREA NITROGEN 18 MG/DL (7-18); CALCIUM LEVEL 8.4 MG/DL (8.8-10.2); CARBON DIOXIDE LEVEL 25 MEQ/L (21-32); CHLORIDE LEVEL 110 MEQ/L (98-107); CK-MB VALUE MASS 2.3 NG/ML (<3.6); CPK CREATINE PHOSPHOKINASE 62 U/L (26-192); CREATININE FOR GFR 0.96 MG/DL (0.55-1.30); ETHYL ALCOHOL (ETHANOL) < 0.003 % (0.000-0.010); GLOMERULAR FILTRATION RATE 59.1 (>32); GLUCOSE, FASTING 76 MG/DL (70-100); MB/CK RELATIVE INDEX 3.71 (< OR =4); POTASSIUM SERUM 4.6 MEQ/L (3.5-5.1); SALICYLATE LEVEL < 1.7 MG/DL (5.0-30.0); SODIUM LEVEL 143 MEQ/L (136-145); THYROID STIMULATING HORMONE 0.472 uIU/ML (0.358-3.740); TOTAL PROTEIN 6.7 GM/DL (6.4-8.2); TROPONIN I < 0.02 NG/ML (< 0.10)
[2019-12-31 12:22] LABS: AMPHETAMINES LEVEL URINE NEGATIVE (NEGATIVE); BARBITURATES URINE NEGATIVE (NEGATIVE); BENZODIAZEPINES URINE NEGATIVE (NEGATIVE); CANNABINOIDS URINE NEGATIVE (NEGATIVE); COCAINE METABOLITE URINE NEGATIVE (NEGATIVE); METHADONE URINE NEGATIVE (NEGATIVE); OPIATES URINE NEGATIVE (NEGATIVE); PHENCYCLIDINE URINE NEGATIVE (NEGATIVE)
--- NOTE | 2019-12-31 12:22 | REP ---
Clinical: Altered mental status . Comparison: 11/14/2019 . Findings: The mediastinum and cardiac silhouette are stable and within normal limits for portable technique. The lung ch are clear without acute consolidation, effusion, or pneumothorax. Chronic elevation to the right hemidiaphragm again noted. Skeletal structures are intact. Evidence of prior right shoulder surgical repair with arthritic and possibly prior post traumatic changes. Impression: No acute cardiopulmonary process appreciated. Electronically Signed by Dom Hernandez MD 12/31/2019 12:13 P
[2019-12-31] MEDS ORDERED: ISOVUE-370 76% 100ML VIAL As Ordered ONE (12:51)
--- NOTE | 2019-12-31 13:27 | REP ---
Clinical: Acute chest and abdominal pain. Technique: Axial contrast enhanced images from the thoracic inlet to the upper abdomen using using pulmonary embolus technique with multiplanar re-formations followed by CT of the abdomen and pelvis. 100 ml Isovue 370 intravenous contrast material administered without complication. Findings: Satisfactory enhancement of the pulmonary vasculature is achieved and no filling defects are identified to suggest pulmonary embolus. Atherosclerotic changes to the thoracic aorta and coronary arteries noted without aortic aneurysm or dissection. No cardiomegaly or pericardial effusion. No significant axillary, hilar, or mediastinal adenopathy. Moderate hiatal hernia noted. The bilateral lung ch demonstrate age-related interstitial changes with a 15 mm nodular density along the periphery of the left upper lung zone (image 34). No further consolidation or effusion. No pneumothorax. Tracheobronchial tree is patent. Surrounding musculoskeletal structures are intact. Impression: 1. No evidence for pulmonary embolus. 2. 15 mm nodular density along the periphery of the left upper lobe warrants short-term follow-up evaluation. Differential diagnosis includes but is not limited to small focal pneumonia as well as neoplasm. 3. Moderate hiatal hernia. Electronically Signed by Dom Hernandez MD 12/31/2019 01:19 P
--- NOTE | 2019-12-31 13:36 | REP ---
Clinical: Abdominal pain. Technique: Axial contrast enhanced images from the lung bases to the pubic symphysis using oral (per protocol) and 100 ml Isovue 370 intravenous contrast material with coronal and sagittal re-formations. Findings: Partially thrombosed infrarenal abdominal aortic aneurysm measures 4.5 cm maximal diameter with a patent component of 2.1 cm maximal diameter and significant partially calcified atherosclerotic changes. The aneurysm begins approximately 1.7 cm below the renal arteries and extends to the level of the iliac bifurcation measuring approximately 6.8 cm in craniocaudal length. No periaortic inflammatory stranding or fluid noted. Liver demonstrates 2.0 cm and 1.5 cm hypodensity suggesting cysts. Spleen, pancreas, gallbladder, bilateral adrenal glands and kidneys are relatively normal. Moderate hiatal hernia identified at the gastroesophageal junction. Small and large bowel without obstruction or acute inflammatory process. Scattered colonic diverticula noted without acute diverticulitis. Normal terminal ileum and appendix are identified in the right lower quadrant. Pelvis demonstrates normal bladder and evidence of prior hysterectomy. No ascites. No free air. No adenopathy. Musculoskeletal structures demonstrate age-related osteopenia and degenerative changes without focal abnormality. Impression: 1. Infrarenal abdominal aortic aneurysm as described above. No prior examinations are available for comparison. 2. Two hepatic hypodensities measuring up to 2 cm likely representing benign cysts. 3. Scattered colonic diverticula without acute diverticulitis. Electronically Signed by Dom Hernandez MD 12/31/2019 01:27 P
[2019-12-31] MEDS ORDERED: ACETAMINOPHEN TAB 650MG DOSE (2X325MG) PO PRN (15:00)
[2019-12-31] MEDS ORDERED: MOM 30ML SUSPENSION UDC PO PRN (15:00)
[2019-12-31] MEDS ORDERED: DONE10TA90 PO (15:06)
[2019-12-31] MEDS ORDERED: IBAN150T6 PO (15:06)
[2019-12-31 16:00] VITALS: BP 124/59
[2019-12-31] MEDS: ASPIRIN 81 MG ENTERIC TAB PO SCH (16:23)
[2019-12-31] MEDS: LOSARTAN 50 MG TAB PO SCH (16:23)
[2019-12-31] MEDS: ATORVASTATIN 10 MG TAB PO SCH (16:23)
[2019-12-31] MEDS: OMEPRAZOLE 20 MG CAP PO SCH (16:24)
[2019-12-31] MEDS: amLODIPine 5 MG TAB PO SCH (16:24)
[2019-12-31] MEDS: LEVOTHYROXINE 50MCG TABLET (0.05MG) PO SCH (16:24)
--- NOTE | 2019-12-31 16:25 | HPEPDOC ---
General Date of Admission December 31, 2019 at 14:51 Date of Service: December 31, 2019 Attending Physician: RAIN STEPHENS MD Chief Complaint The patient is a 84-year-old female admitted with a reason for visit of Abdominal Pain. Source: Patient, Family, RN/MD Exam Limitations: Other Timing/Duration: Getting worse History of Present Illness 84 yo W with a history of dementia with ongoing evaluation suspecting Lewy body dementia with parkinsonism, followed by Dr Cerda in neurology, recently admitted for AMS and was taken off abilify for concern for possible contribution to parkinsonian symptoms and was started on donepezil, who is brought in by EMS that was called by her after she was difficult to arouse at home, and noted to also be increasingly restless, talkative, worried with much caregiver fatigue expressed by her concerned elderly . of note, med rec noted that she was recently started on citalopram. In the ED, she arrived sleepy but arousable, with normal speech and no notable neuro deficits. She was hemodynamically stable, afebrile and reporting the only discomfort to be abdominal. Head CT showed microvascular disease without acute abnormalities, CXR was without cardiopulmonary abnormalities, CTA chest was without a PE with an incidental 15mm MARIELA nodule, CT A/P with a 4.5x2.1 infrarenal AAA and benign liver cysts without other acute pathology, while WBC was 5.8, Hgb 12.4, Cr 0.96, lactate 0.8, TSH 0.472, troponin negative, Utox negative, UA bland and EKG non ischemic in NSR. Home Medications Scheduled Amlodipine/Atorvastatin (Amlodipine-Atorvast 5-10 mg) 1 Each Tablet, 1 TAB PO DAILY, (Reported) Aspirin (Aspir 81) 81 Mg Tablet.dr, 81 MG PO DAILY, (Reported) Citalopram Hydrobromide (Celexa) 10 Mg Tablet, 10 MG PO DAILY, (Reported) Donepezil HCl (Donepezil HCl) 10 Mg Tablet, 10 MG PO DAILY, (Reported) Ibandronate Sodium (Ibandronate Sodium) 150 Mg Tablet, 150 MG PO QMONTH, ( Reported) TAKES ON THE 7TH OF EACH MONTH Levothyroxine Sodium (Synthroid) 50 Mcg Tablet, 50 MCG PO DAILY, (Reported) Losartan Potassium (Losartan Potassium) 50 Mg Tablet, 50 MG PO DAILY, (Reported) Metoprolol Tartrate (Metoprolol Tartrate) 25 Mg Tablet, 25 MG PO BID, (Reported) Omeprazole (Omeprazole) 40 Mg Capsule.dr, 40 MG PO DAILY, (Reported) Allergies Coded Allergies: No Known Allergies (Unverified , 02/15/19) Past Medical History Medical History Dementia likely Lewy body HTN GERD Hypothyroidism Depression Anxiety HLD Surgical History laminectomies partial hysterectomy R arm laceration repair bilateral cataract surgery Family History Significant Family History: No pertinent family hx Social History * Smoker: Denies Alcohol: Denies Drugs: denies Recent Travel/Sick Contacts: Denies: Recent travel, Recent sick contacts Psychosocial History: Anxiety, Dementia, Depression A-FIB/CHADSVASC A-FIB History Current/History of A-Fib/PAF?: No Current PO Anticoag Therapy: No Age/Risk Factor Scoring CHADSVASC: CHADSVASC Response (Comments) Value Age Risk Factor Age >/= 75 years old 2 Gender Risk Factor Female 1 Hx of CHF No 0 Hx of HTN Yes 1 Hx of Stroke/TIA/or VTE No 0 Hx of Diabetes No 0 Hx of Vascular Disease Yes 1 Total 5 Treatment Treatment ordered: NONE Reason Anticoagulant not given: Not indicated/[id number] Review of Systems Constitutional: Reports: Lethargy; Denies: Chills, Fever, Night Sweats Eyes: Denies: Pain, Vision change ENT: Denies: Head Aches, Ear Pain, Dysphagia Skin: Denies: Rash, Lesions, Breakdown Pulmonary: Denies: Dyspnea, Cough Cardiovascular: Denies: Chest Pain, Palpitations, Orthopnea, Paroxysmal Noc. Dyspnea, Lt Headedness Gastrointestinal: Reports: Abdominal Pain; Denies: Nausea, Vomiting, Diarrhea, Constipation, Melena, Hematochezia Genitourinary: Denies: Dysuria, Frequency, Incontinence, Retention Hematologic: Denies: Bruising, Bleeding Excessively Endocrine: Denies: Polydipsia, Polyphagia, Polyuria, Heat Intolerance, Cold In tolerance, Other Endocrine Sx Musculoskeletal: Denies: Neck Pain, Back Pain, Joint Pain, Muscle Pain, Spasms Neurological: Denies: Weakness, Numbness, Change in speech, Confusion Psych: Reports: Mood Normal, Anxiety; Denies: Depression, Memory Issues Physical Examination General Exam: Positive: Alert (sleeping, alert on voice), Cooperative, No Acute Distress Eye Exam: Positive: PERRLA, Conjunctiva & lids normal, EOMI; Negative: Sclera icteric ENT Exam: Positive: Atraumatic, Mucous membr. moist/pink, Pharynx Normal Chest Exam: Positive: Clear to auscultation, Normal air movement Heart Exam: Positive: Rate Normal, Regular Rhythm, Normal S1, Normal S2; Negative: Murmurs, Rubs Telemetry: Positive: No significant arrhythmia Abdomen Exam: Positive: Normal bowel sounds, Soft, Tenderness (non tender on palpation, reports that the pain is episodic and deep but not induced with palpation); Negative: Hepatospenomegaly Extremity Exam: Positive: Normal pulses; Negative: Clubbing, Cyanosis, Edema Skin Exam: Positive: Nl turgor and temperature; Negative: Breakdown, Lesion Neuro Exam: Positive: Normal Speech, Cranial Nerves 3-12 NL; Negative: Strength at 5/5 X4 ext (was not cooperating for exam , too tired) Psych Exam: Positive: Mental status NL Vital Signs Vital Signs Date Time Temp Pulse Resp B/P (MAP) Pulse Ox O2 Delivery O2 Flow Rate FiO2 12/31/19 15:25 98.8 12/31/19 15:25 71 16 130/64 (86) 96 Room Air Laboratory Data Labs 24H Laboratory Tests 2 12/31/19 11:03: Lactic Acid Level 0.8, Ammonia 15 12/31/19 11:04: Immature Granulocyte % (Auto) 0.2, Neutrophils (%) (Auto) 57.9, Lymphocytes (%) (Auto) 29.9, Monocytes (%) (Auto) 7.9H, Eosinophils (%) (Auto) 3.8H, Basophils (%) (Auto) 0.3, Neutrophils # (Auto) 3.4, Lymphocytes # (Auto) 1.7, Monocytes # (Auto) 0.5, Eosinophils # (Auto) 0.2, Basophils # (Auto) 0.0, Nucleated Red Blood Cells % (auto) 0.0, Anion Gap 8, Glomerular Filtration Rate 59.1, Calcium Level 8.4L, Total Bilirubin 0.5, Direct Bilirubin 0.2, Aspartate Amino Transf (AST/SGOT) 21, Alanine Aminotransferase (ALT/SGPT) 22, Alkaline Phosphatase 156H, Total Creatine Kinase 62, Creatine Kinase MB 2.3, Creatine Kinase MB Relative Index 3.71, Troponin I < 0.02, Total Protein 6.7, Albumin 3.4, Albumin/Globulin Ratio 1.03, Thyroid Stimulating Hormone (TSH) 0.472, Salicylates Level < 1.7L, Acetaminophen Level < 2.0L, Ethyl Alcohol Level < 0.003 12/31/19 11:32: Bedside Glucose (Misc Panel) 72L 12/31/19 11:52: Urine Color YELLOW, Urine Appearance CLEAR, Urine pH 5.0, Urine Specific [place] 1.019, Urine Protein NEGATIVE, Urine Glucose (UA) NEGATIVE, Urine Ketones T RACEH, Urine Blood NEGATIVE, Urine Nitrite NEGATIVE, Urine Bilirubin NEGATIVE, Urine Urobilinogen 0.2, Urine Leukocyte Esterase NEGATIVE, Urine WBC (Auto) 1, Urine RBC (Auto) 0, Urine Hyaline Casts (Auto) 0, Urine Bacteria (Auto) NEGATIVE, Urine Squamous Epithelial Cells 0, Urine Sperm (Auto) , Urine Opiates Screen NEGATIVE, Urine Methadone Screen NEGATIVE, Urine Barbiturates Screen NEGATIVE, Urine Phencyclidine Screen NEGATIVE, Urine Amphetamines Screen NEGATIVE, Urine Benzodiazepines Screen NEGATIVE, Urine Cocaine Metabolite Screen NEGATIVE, Urine Cannabinoids Screen NEGATIVE CBC/BMP Laboratory Tests 12/31/19 11:04 Microbiology Microbiology 12/31/19 Blood Culture, Received Pending 12/31/19 Blood Culture, Received Pending Assessment/Plan 84 yo W with a history of dementia with ongoing evaluation suspecting Lewy body dementia with parkinsonism, followed by Dr Cerda in neurology, recently admitted for AMS and was taken off abilify for concern for possible contribution to parkinsonism and was started on donepezil, who is brought in by EMS that was called by her after she was difficult to arouse at home, and noted to also be increasingly restless, talkative, worried with much caregiver fatigue ex pressed by her concerned elderly . of note, [facility] rec noted that she was recently started on citalopram. She had an exhaustive workup that was grossly negative and is now admitted with concern for medication induced encephalopathy, PT/OT evaluation and potential placement evaluation. Encephalopathy on baseline dementia: Likely drug induced with recently started citalopram with increased sleepiness -Hold citalopram -Hold donepezil as well until alertness returns to baseline -NS @ 75cc/hr for hydration -monitor HTN: -continue home amlodipine 5 QD, losartan 50 QD, metoprolol 25 BID HLD: -continue lipitor 10 QD GERD: -continue omeprazole -continue ASA81 for primary prevention DVT ppx: lovenox 30 SQ Diet: regular Dispo: medsurg, PT/OT and PFS consult placed Plan / VTE VTE Prophylaxis Ordered?: Yes RAIN STEPHENS MD December 31, 2019 16:25
[2019-12-31] MEDS: NS 1,000 ML IV SCH (17:52)
--- NOTE | 2019-12-31 19:23 | ECGEPIP ---
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
[2019-12-31] MEDS: METOPROLOL TART 25 MG TABLET PO SCH (21:00)
[2019-12-31 21:09] VITALS: BP 122/62
[2020-01-01] MEDS: LEVOTHYROXINE 50MCG TABLET (0.05MG) PO SCH (05:14)
[2020-01-01] MEDS: NS 1,000 ML IV SCH (05:14)
[2020-01-01 06:00] VITALS: BP 133/74
[2020-01-01 06:13] LABS: HEMOGLOBIN 12.4 g/dl (12.0-15.5); MEAN CORPUSCULAR HGB CONC 32.6 g/dl (32.0-36.5); PLATELET COUNT, AUTOMATED 155 10^3/uL (150-450); WHITE BLOOD COUNT 6.2 10^3/uL (4.0-10.0)
[2020-01-01 06:41] LABS: BLOOD UREA NITROGEN 14 MG/DL (7-18); CALCIUM LEVEL 8.5 MG/DL (8.8-10.2); CARBON DIOXIDE LEVEL 25 MEQ/L (21-32); CHLORIDE LEVEL 111 MEQ/L (98-107); CREATININE FOR GFR 0.91 MG/DL (0.55-1.30); GLOMERULAR FILTRATION RATE > 60.0 (>32); GLUCOSE, FASTING 75 MG/DL (70-100); MAGNESIUM LEVEL 2.2 MG/DL (1.8-2.4); POTASSIUM SERUM 4.4 MEQ/L (3.5-5.1); SODIUM LEVEL 144 MEQ/L (136-145)
--- NOTE | 2020-01-01 08:57 | IPNPDOC ---
Text Note Date of Service The patient was seen on 01/01/20. NOTE Subjective: Awake and cooperative, says does not know why she is here. Says her brought her. SHe confirms she just started taking the new medication. Denied any sob or cough, denied any abdominal pain, nausea or vomiting. General Exam: Positive: Alert, oriented, Cooperative, No Acute Distress Eye Exam: Positive: PERRLA, Conjunctiva & lids normal, EOMI; Negative: Sclera icteric ENT Exam: Positive: Atraumatic, Mucous membr. moist/pink, Pharynx Normal Chest Exam: Positive: Clear to auscultation, Normal air movement Heart Exam: Positive: Rate Normal, Regular Rhythm, Normal S1, Normal S2; Negative: Murmurs, Rubs Abdomen Exam: Positive: Normal bowel sounds, Soft, Nontender Negative: Hepatospenomegaly Extremity Exam: Positive: Normal pulses; Negative: Clubbing, Cyanosis, Edema Skin Exam: Positive: Nl turgor and temperature; Negative: Breakdown, Lesion Neuro Exam: Positive: Normal Speech, Cranial Nerves 3-12 NL; Negative: Strength at 5/5 X4 ext , no focal neurodeficits. Psych Exam: Positive: Mental status NL Labs and radiology: reviewed. Assessment and Plan: 84 yo W with a history of dementia with ongoing evaluation suspecting Lewy body dementia with parkinsonism, followed by Dr Cerda in neurology, recently admitted for AMS and was taken off abilify for concern for possible contribution to parkinsonian symptoms and was started on donepezil, who is brought in by EMS that was called by her after she was difficult to arouse at home, and noted to also be increasingly restless, talkative, worried with much caregiver fatigue expressed by her concerned elderly . of note, med rec noted that she was recently started also on citalopram. In the ED, she arrived sleepy but arousable, with normal speech and no notable neuro deficits. Head CT showed microvascular disease without acute abnormalities, CXR was without cardiopulmonary abnormalities, CTA chest was without a PE with an incidental 15mm MARIELA nodule, CT A/P with a 4.5x2.1 infrarenal AAA and benign liver cysts without other acute pathology. She had an exhaustive workup that was grossly negative and was admitted with concern for medication induced encephalopathy, PT/OT evaluation and potential placement evaluation. Toxic Metabolic Encephalopathy on baseline dementia: Likely drug induced with recently started citalopram with increased sleepiness Hold citalopram HTN: continue home amlodipine 5 QD, losartan 50 QD, metoprolol 25 BID with hold parameters. HLD: continue lipitor 10 QD GERD/ Hiatal hernia: continue omeprazole AAA infrarenal 4.5x 2.1 partially thrombosed. MARIELA pulmonary nodule 1.5 cm nodule outpatient work up DVT ppx: lovenox 30 SQ Dispo: after PT/OT and PFS VS,Fishbone, I+O VS, Fishbone, I+O Laboratory Tests 12/31/19 11:04 01/01/20 05:37 Vital Signs Date Time Temp Pulse Resp B/P (MAP) Pulse Ox O2 Delivery O2 Flow Rate FiO2 01/01/20 06:00 97.5 64 16 133/74 (93) 96 Room Air I&O- Last 24 Hours up to 6 AM 01/01/20 05:59 Intake Total 340 ml Output Total 300 ml Balance 40 ml MARIA C TUCKER MD January 01, 2020 08:57
[2020-01-01] MEDS: ENOXAPARIN 30MG/0.3ML SYRINGE (J1650 PER 10MG) SC SCH (09:37)
[2020-01-01] MEDS: ASPIRIN 81 MG ENTERIC TAB PO SCH (09:38)
[2020-01-01] MEDS: OMEPRAZOLE 20 MG CAP PO SCH (09:38)
[2020-01-01] MEDS: ATORVASTATIN 10 MG TAB PO SCH (09:38)
[2020-01-01] MEDS: DONEPEZIL 5 MG TAB PO SCH (09:38)
[2020-01-01] MEDS: amLODIPine 5 MG TAB PO SCH (09:39)
[2020-01-01] MEDS: METOPROLOL TART 25 MG TABLET PO SCH ×2 (09:39→21:39)
[2020-01-01] MEDS: LOSARTAN 50 MG TAB PO SCH (09:39)
[2020-01-01 14:00] VITALS: BP 134/51
[2020-01-01 20:47] VITALS: BP 127/57
[2020-01-02 05:24] VITALS: BP 130/58
[2020-01-02] MEDS: LEVOTHYROXINE 50MCG TABLET (0.05MG) PO SCH (05:35)
[2020-01-02 06:19] LABS: HEMATOCRIT 36.3 % (36.0-47.0); HEMOGLOBIN 11.7 g/dl (12.0-15.5); MEAN CORPUSCULAR HEMOGLOBIN 30.6 pg (27.0-33.0); MEAN CORPUSCULAR HGB CONC 32.2 g/dl (32.0-36.5); PLATELET COUNT, AUTOMATED 164 10^3/uL (150-450); RED BLOOD COUNT 3.82 10^6/uL (4.00-5.40); WHITE BLOOD COUNT 5.5 10^3/uL (4.0-10.0)
[2020-01-02 06:40] LABS: BLOOD UREA NITROGEN 16 MG/DL (7-18); CALCIUM LEVEL 8.8 MG/DL (8.8-10.2); CARBON DIOXIDE LEVEL 27 MEQ/L (21-32); CHLORIDE LEVEL 111 MEQ/L (98-107); CREATININE FOR GFR 0.94 MG/DL (0.55-1.30); GLOMERULAR FILTRATION RATE > 60.0 (>32); GLUCOSE, FASTING 84 MG/DL (70-100); SODIUM LEVEL 143 MEQ/L (136-145)
[2020-01-02] MEDS: LOSARTAN 50 MG TAB PO SCH (09:19)
[2020-01-02] MEDS: ASPIRIN 81 MG ENTERIC TAB PO SCH (09:19)
[2020-01-02] MEDS: ENOXAPARIN 30MG/0.3ML SYRINGE (J1650 PER 10MG) SC SCH (09:19)
[2020-01-02] MEDS: ATORVASTATIN 10 MG TAB PO SCH (09:19)
[2020-01-02] MEDS: DONEPEZIL 5 MG TAB PO SCH (09:19)
[2020-01-02] MEDS: METOPROLOL TART 25 MG TABLET PO SCH (09:19)
[2020-01-02 09:20] VITALS: BP 145/58
[2020-01-02] MEDS: OMEPRAZOLE 20 MG CAP PO SCH (09:20)
[2020-01-02] MEDS: amLODIPine 5 MG TAB PO SCH (09:20)
--- NOTE | 2020-01-02 13:21 | CR.PDOC ---
General Date of Consultation: January 02, [address] Caba HPI: 84 year old F who was admitted to the hospitalist service with encephalopathy. The patient had reported abdominal pain, CAT scan abdomen/pelvis indicated 4.5 cm abdominal aortic aneurysm. Vascular surgery is consulted. Denies any fevers, chills, weakness, fatigue, Headache, Chest Pain, Shortness of breath, cough, palpitations, abdominal pain, N/V/D or changes in bowel or bladder habits. Medical History Dementia possibly Lewy body HTN GERD Hypothyroidism Depression Anxiety HLD Surgical History laminectomies partial hysterectomy R arm laceration repair bilateral cataract surgery SOCHX: Nonsmoker FAMHX: No history of aneurysm ROS: As noted in HPI, otherwise 11pt ROS of systems reviewed and unremarkable. PE: GEN: 84 yo F, appears stated age. No acute distress. Pleasantly confused. HEENT: Normocephalic, atraumatic. Moist mucous membranes. Dentition fair. CHEST: Regular rate and rhythm, +S1, +S2 LUNGS: Clear to auscultation bilaterally. ABD: Round, soft, non-tender, non-distended. +Bowel sounds throughout. No pulsatile mass. SKIN: [place], dry, warm. Capillary refill <2sec. No rashes. Impression: There is no free subdiaphragmatic air. Abdomen, supine upright views: The bowel gas pattern is normal. There are calcifications in the pelvis, likely phleboliths. Abdominal aortic aneurysm versus abdominal aortic tortuosity. There is degenerative disc disease in the lumbar spine. There is bilateral hip osteoarthritis. Electronically Signed by Aaron Castillo MD 09/26/2019 01:[address] A/P Clinical: Abdominal pain. Technique: Axial contrast enhanced images from the lung bases to the pubic symphysis using oral (per protocol) and 100 ml Isovue 370 intravenous contrast Findings: Partially thrombosed infrarenal abdominal aortic aneurysm measures 4.5 cm maximal diameter with a patent component of 2.1 cm maximal diameter and significant partially calcified atherosclerotic changes. The aneurysm begins approximately 1.7 cm below the renal arteries and extends to the level of the iliac bifurcat ion measuring approximately 6.8 cm in craniocaudal length. No periaortic inflammatory stranding or fluid noted. Liver demonstrates 2.0 cm and 1.5 cm hypodensity suggesting cysts. Spleen, pancreas, gallbladder, bilateral adrenal glands and kidneys are relatively normal. Moderate hiatal hernia identified at the gastroesophageal junction. Small and large bowel without obstruction or acute inflammatory process. Scattered colonic diverticula noted without acute diverticulitis. Normal terminal ileum and appendix are identified in the right lower quadrant. Pelvis demonstrates normal bladder and evidence of prior hysterectomy. No ascites. No free air. No adenopathy. Musculoskeletal structures demonstrate age-related osteopenia and degenerative changes without focal abnormality. Impression: 1. Infrarenal abdominal aortic aneurysm as described above. No prior examinations are available for comparison. 2. Two hepatic hypodensities measuring up to 2 cm likely representing benign cysts. 3. Scattered colonic diverticula without acute diverticulitis. Electronically Signed by Dom Hernandez MD 12/31/2019 01:27 P A&P: 1. Infrarenal abdominal aortic aneurysm. CT scan abdomen/pelvis from 12/31/[address] Caba. There is no previous imaging in the system other than an abdominal x-ray August 2019. 4.5 cm maximal AP diameter on recent CAT scan abdomen/pelvis. No vascular intervention would be recommended at this time. Would recommend outpatient follow-up, with follow-up CT abdomen/pelvis in 6 months with vascular surgery office follow-up to review results. Vital Signs/I&O Vital Signs Date Time Temp Pulse Resp B/P (MAP) Pulse Ox O2 Delivery O2 Flow Rate FiO2 01/02/20 09:20 52 145/58 01/02/20 05:24 98.1 16 94 Room Air I&O- Last 24 Hours up to 6 AM 01/02/20 06:00 Intake Total 2650 ml Output Total 0 ml Balance 2650 ml Laboratory Data Labs 24H Laboratory Tests 2 01/02/20 06:02: Nucleated Red Blood Cells % (auto) 0.0, Anion Gap 5L, Glomerular Filtration Rate > 60.0, Calcium Level 8.8 CBC/BMP Laboratory Tests 01/02/20 06:02 Microbiology Microbiology 12/31/19 Blood Culture - Preliminary, Resulted No growth after 24 hours . All specim... 12/31/19 Blood Culture - Preliminary, Resulted No Growth after 48 hours. All Specime... Allergies Coded Allergies: No Known Allergies (Unverified , 02/15/19) Home Medications Scheduled Amlodipine/Atorvastatin (Amlodipine-Atorvast 5-10 mg) 1 Each Tablet, 1 TAB PO DAILY, (Reported) Aspirin (Aspir 81) 81 Mg Tablet.dr, 81 MG PO DAILY, (Reported) Donepezil HCl (Donepezil HCl) 10 Mg Tablet, 10 MG PO DAILY, (Reported) Ibandronate Sodium (Ibandronate Sodium) 150 Mg Tablet, 150 MG PO QMONTH, (Reported) TAKES ON THE 7TH OF EACH MONTH Levothyroxine Sodium (Synthroid) 50 Mcg Tablet, 50 MCG PO DAILY, (Reported) Losartan Potassium (Losartan Potassium) 50 Mg Tablet, 50 MG PO DAILY, (Reported) Metoprolol Tartrate (Metoprolol Tartrate) 25 Mg Tablet, 25 MG PO BID, (Reported) Omeprazole (Omeprazole) 40 Mg Capsule.dr, 40 MG PO DAILY, (Reported) Kyung Reed January 02, 2020 13:21
[2020-01-02 14:00] VITALS: BP 127/59
--- NOTE | 2020-01-04 13:06 | DS.PDOC ---
Discharge Summary General Date of Admission December 31, 2019 at 14:51 Date of Discharge 01/02/20 Discharge Summary PROCEDURES PERFORMED DURING STAY: [None]. DISCHARGE DIAGNOSES: Toxic metabolic encephalopathy medication ( citalopram) induced Dementia AAA 4.5 x 2.1 MARIELA Pulmonary nodule 1.5 cm Hypertension Hyperlipidemia GERD Hiatal hernia COMPLICATIONS/CHIEF COMPLAINT: Abdominal Pain. HISTORY OF PRESENT ILLNESS: See History and physical HOSPITAL COURSE: 84 yo W with a history of dementia with ongoing evaluation suspecting Lewy body dementia with parkinsonism, followed by Dr Cerda in neurology, recently admitted for AMS and was taken off abilify for concern for possible contribution to parkinsonian symptoms and was started on donepezil, who is brought in by EMS that was called by her after she was difficult to arouse at home, and noted to also be increasingly restless, talkative, worried with much caregiver fatigue expressed by her concerned elderly . of note, med rec noted that she was recently started also on citalopram. In the ED, she arrived sleepy but arousable, with normal speech and no notable neuro deficits. Head CT showed microvascular disease without acute abnormalities, CXR was without cardiopulmonary abnormalities, CTA chest was without a PE with an incidental 15mm MARIELA nodule, CT A/P with a 4.5x2.1 infrarenal AAA and benign liver cysts without other acute pathology. She had an exhaustive workup that was grossly negative and was admitted with concern for medication induced encephalopathy. Toxic Metabolic Encephalopathy on baseline dementia: Likely drug induced with recently started citalopram with increased sleepiness stopped citalopram HTN: continue home amlodipine 5 QD, losartan 50 QD, metoprolol 25 BID HLD: continue lipitor 10 QD GERD/ Hiatal hernia: continue omeprazole AAA infrarenal 4.5x 2.1 partially thrombosed. MARIELA pulmonary nodule 1.5 cm nodule outpatient work up DISCHARGE MEDICATIONS: Please see below. ALLERGIES: Please see below. PHYSICAL EXAMINATION ON DISCHARGE: VITAL SIGNS: Please see below. General Exam: Positive: Alert, oriented, Cooperative, No Acute Distress Eye Exam: Positive: PERRLA, Conjunctiva & lids normal, EOMI; Negative: Sclera icteric ENT Exam: Positive: Atraumatic, Mucous membr. moist/pink, Pharynx Normal Chest Exam: Positive: Clear to auscultation, Normal air movement Heart Exam: Positive: Rate Normal, Regular Rhythm, Normal S1, Normal S2; Negative: Murmurs, Rubs Abdomen Exam: Positive: Normal bowel sounds, Soft, Nontender Negative: Hepatospenomegaly Extremity Exam: Positive: Normal pulses; Negative: Clubbing, Cyanosis, Edema Skin Exam: Positive: Nl turgor and temperature; Negative: Breakdown, Lesion Neuro Exam: Positive: Normal Speech, Cranial Nerves 3-12 NL; Negative: Strength at 5/5 X4 ext , no focal neurodeficits. Psych Exam: Positive: Mental status NL LABORATORY DATA: Please see below. ACTIVITY: [As tolerated]. DIET: As tolerated DISPOSITION: Home Health Service. DISCHARGE INSTRUCTIONS: PMD in 2 weeks DISCHARGE CONDITION: [Stable]. TIME SPENT ON DISCHARGE: 35 minutes. Vital Signs/I&Os Vital Signs Date Time Temp Pulse Resp B/P (MAP) Pulse Ox O2 Delivery O2 Flow Rate FiO2 01/02/20 14:00 98.4 55 18 127/59 (81) 95 Room Air Microbiology Microbiology 12/31/19 Blood Culture - Preliminary, Resulted No Growth after 72 hours. All specime... 12/31/19 Blood Culture - Preliminary, Resulted No Growth after 72 hours. All specime... Discharge Medications Scheduled Amlodipine/Atorvastatin (Amlodipine-Atorvast 5-10 mg) 1 Each Tablet, 1 TAB PO DA JORDAN, (Reported) Aspirin (Aspir 81) 81 Mg Tablet.dr, 81 MG PO DAILY, (Reported) Donepezil HCl (Donepezil HCl) 10 Mg Tablet, 10 MG PO DAILY, (Reported) Ibandronate Sodium (Ibandronate Sodium) 150 Mg Tablet, 150 MG PO QMONTH, (Reported) TAKES ON THE 7TH OF EACH MONTH Levothyroxine Sodium (Synthroid) 50 Mcg Tablet, 50 MCG PO DAILY, (Reported) Losartan Potassium (Losartan Potassium) 50 Mg Tablet, 50 MG PO DAILY, (Reported) Metoprolol Tartrate (Metoprolol Tartrate) 25 Mg Tablet, 25 MG PO BID, (Reported) Omeprazole (Omeprazole) 40 Mg Capsule.dr, 40 MG PO DAILY, (Reported) Allergies Coded Allergies: No Known Allergies (Unverified , 02/15/19) MARIA C TUCKER MD January 04, 2020 13:06
== END 2020-01-02 14:25 | disposition home health service (06) | DRG 93 ==
LOC: EDBD 10:36 → EDSEX 10:36 → M ED 10:36 → M ED INP 14:51 → ENRESERV 15:16 → M MS5PR 16:01
PROVIDERS: ADMIT Internal Medicine; ATTEND Internal Medicine Nephrology
DX: G92 Toxic encephalopathy (principal); T43.225A Adverse effect of selective serotonin reuptake inhibitors, initial encounter; G31.83 Neurocognitive disorder with Lewy bodies; I10 Essential (primary) hypertension; K21.9 Gastro-esophageal reflux disease without esophagitis; E03.9 Hypothyroidism, unspecified; F32.9 Major depressive disorder, single episode, unspecified; F41.9 Anxiety disorder, unspecified; F02.80 Dementia in other diseases classified elsewhere, unspecified severity, without behavioral disturbance, psychotic disturbance, mood disturbance, and anxiety; I71.4 Abdominal aortic aneurysm, without rupture; R91.1 Solitary pulmonary nodule; K44.9 Diaphragmatic hernia without obstruction or gangrene; Z79.899 Other long term (current) drug therapy; Z79.82 Long term (current) use of aspirin

== ENCOUNTER → 2020-01-09 | Outpatient (REF) | payer MEDICARE, OTHER ==
[~2020-01-09] MED LIST changes: +DONE10TA90 PO
[2020-01-09 17:15] LABS: BASO % 0.5 % (0.0-1.0); EOS # 0.2 10^3/uL (0.0-0.5); EOS % 3.2 % (0.0-3.0); HEMATOCRIT 43.4 % (36.0-47.0); HEMOGLOBIN 14.2 g/dl (12.0-15.5); LYMPH % 27.4 % (24.0-44.0); MEAN CORPUSCULAR HEMOGLOBIN 31.6 pg (27.0-33.0); MEAN CORPUSCULAR HGB CONC 32.7 g/dl (32.0-36.5); MEAN CORPUSCULAR VOLUME 96.7 fl (80.0-96.0); MONO # 0.8 10^3/uL (0.0-0.8); MONO % 10.2 % (0.0-5.0); NEUTROPHILS # 4.4 10^3/uL (1.5-8.5); NEUTROPHILS % 58.6 % (36.0-66.0); PLATELET COUNT, AUTOMATED 255 10^3/uL (150-450); RED BLOOD COUNT 4.49 10^6/uL (4.00-5.40); WHITE BLOOD COUNT 7.4 10^3/uL (4.0-10.0)
[2020-01-09 17:30] LABS: ALBUMIN 3.7 GM/DL (3.2-5.2); BILIRUBIN,TOTAL 0.4 MG/DL (0.2-1.0); C REACTIVE PROTEIN QUANTITATIV 0.45 MG/DL (0.00-0.30); CALCIUM LEVEL 9.6 MG/DL (8.8-10.2); CREATININE FOR GFR 1.15 MG/DL (0.55-1.30); POTASSIUM SERUM 4.1 MEQ/L (3.5-5.1); TOTAL PROTEIN 7.2 GM/DL (6.4-8.2)
[2020-01-09 19:20] LABS: ERYTHROCYTE SEDIMENTATION RATE 21 mm/hr (0-30)
== END ==
LOC: M SFHCLERA 14:35
PROVIDERS: ATTEND Family Medicine
DX: R63.4 Abnormal weight loss (principal)
CPT/HCPCS: 36415; 80053; 83615; 85025; 85652; 86140; G0463

== ENCOUNTER → 2020-02-01 | Outpatient (CLI) | payer MEDICARE, OTHER ==
--- NOTE | 2020-02-01 13:45 | REP ---
REASON: Followup pulmonary nodule. COMPARISON: Multiple the latest 12/31/2019. The lack of intravenous contrast decreases the sensitivity of the exam. There is no change in the mediastinum or pulmonary shakira. There are no pleural or pericardial effusions. There is no change in the images upper abdomen or imaged osseous structures. There is a large hiatal hernia status quo. There are chronic spinal degenerative changes status quo. Evaluation of the lung ch shows no change in the left upper lobe nodule. This has a maximum dimension of approximately 2.1 cm. Other smaller millimeter sized nodules are again noted status quo. IMPRESSION: Irregular left upper lobe nodule as described above unchanged from 12/31/2019, which is the only prior for comparison. According to the revised Fleischner Society criteria, PET/CT is recommended. Neoplastic change cannot be ruled out. Electronically Signed by Xavier Fox DO 02/01/2020 02:33 P
== END ==
LOC: M RAD 12:55
PROVIDERS: ATTEND Family Medicine
DX: R91.1 Solitary pulmonary nodule (principal)

== ENCOUNTER → 2020-02-06 | Outpatient (REF) | payer MEDICARE, OTHER ==
[2020-02-06 17:36] LABS: PLATELET COUNT, AUTOMATED 226 10^3/uL (150-450)
[2020-02-06 17:45] LABS: INR 1.07; PROTHROMBIN TIME 13.6 SECONDS (11.8-14.0)
[2020-02-06 17:46] LABS: PARTIAL THROMBOPLASTIN TIME 27.9 SECONDS (25.0-38.4)
== END ==
LOC: M LAB REF 16:52
PROVIDERS: ATTEND Internal Medicine Pulmonary Disease
DX: R91.1 Solitary pulmonary nodule (principal); Z79.01 Long term (current) use of anticoagulants

== ENCOUNTER → 2020-03-14 | Outpatient (CLI) | payer MEDICARE, OTHER ==
[~2020-03-14] MED LIST changes: -ASPI81TA85 PO; +ASPI81TA86 PO; +LIDOCAINE 1% MDV 20ML VIAL As Ordered ONE; +PARO5TAB PO
[2020-03-14 13:51] VITALS: BP 157/71
--- NOTE | 2020-03-14 15:19 | REP ---
POST BIOPSY CHEST RADIOGRAPH: A post biopsy chest radiograph is performed status post left lung biopsy. No significant pneumothorax is seen. Peripheral irregular opacity is again seen in the left mid lung zone at the level of the hilum. The heart is normal in size and there is calcification of the thoracic aorta. IMPRESSION: No significant pneumothorax status post left lung biopsy. Electronically Signed by Aaron Wilkinson MD 03/17/2020 11:43 P
--- NOTE | 2020-03-14 17:15 | REP ---
POST BIOPSY CHEST: Single view of the chest is performed, status post left lung biopsy. There is a very small left apical pneumothorax with an air gap of 1.6 cm. Remainder of the study is unchanged. Electronically Signed by Aaron Wilkinson MD 03/18/2020 09:09 A
--- NOTE | 2020-03-18 10:09 | REP ---
CT-guided left upper lobe lung biopsy The procedure is performed by JESUS Jett, under the direct supervision of Dr. Wilkinson. The patient has a history of a left upper lobe lung nodule on the CT dated 12/31/2019 and 02/01/2020. The risks and benefits of the procedure were explained to the patient and informed consent was obtained both orally and written. Directly prior to the start of the procedure, a formal timeout was done in the exam room. The left upper lobe nodule was localized using CT guidance. Skin was prepped and draped in the usual sterile fashion. 4 ml of 1% lidocaine 10 mg/ml was used as a local anesthetic. Using CT guidance a 19/20 gauge coaxial needle biopsy system was inserted and advanced through the pleura space. The coaxial needle was not located in the nodule, so therefore the coaxial needle was pulled back and reinserted into the pleura. The second pass was not successful either and by this time the patient had a small pneumothorax to the procedure was aborted. CT images obtained directly after the biopsy showed a small pneumothorax. After the appropriate amount of monitored convalescence and serial chest x-rays the patient was discharged from the department, with the instructions that should anything change she should immediately report to the emergency department. Reviewed by JESUS Sparks 03/14/2020 04:09 P Electronically Signed by Aaron Wilkinson MD 03/18/2020 10:00 A
== END ==
LOC: M IRPRO 09:51
PROVIDERS: ATTEND Internal Medicine Pulmonary Disease
DX: R91.1 Solitary pulmonary nodule (principal); J95.811 Postprocedural pneumothorax; Z53.8 Procedure and treatment not carried out for other reasons

== ENCOUNTER → 2020-03-18 | Outpatient (REF) | payer MEDICARE, OTHER ==
[~2020-03-18] MED LIST changes: +ASPI81TA85 PO; -ASPI81TA86 PO; -LIDOCAINE 1% MDV 20ML VIAL As Ordered ONE
[2020-03-18 16:39] LABS: BASO % 0.4 % (0.0-1.0); EOS # 0.2 10^3/uL (0.0-0.5); EOS % 3.2 % (0.0-3.0); HEMATOCRIT 43.9 % (36.0-47.0); HEMOGLOBIN 14.1 g/dl (12.0-15.5); LYMPH # 1.6 10^3/uL (1.5-5.0); MEAN CORPUSCULAR HEMOGLOBIN 30.9 pg (27.0-33.0); MEAN CORPUSCULAR HGB CONC 32.1 g/dl (32.0-36.5); MEAN CORPUSCULAR VOLUME 96.1 fl (80.0-96.0); MONO # 0.9 10^3/uL (0.0-0.8); MONO % 12.2 % (0.0-5.0); NEUTROPHILS # 4.3 10^3/uL (1.5-8.5); NEUTROPHILS % 61.1 % (36.0-66.0); PLATELET COUNT, AUTOMATED 242 10^3/uL (150-450); RED BLOOD COUNT 4.57 10^6/uL (4.00-5.40); WHITE BLOOD COUNT 7.1 10^3/uL (4.0-10.0)
[2020-03-18 16:50] LABS: CALCIUM LEVEL 9.6 MG/DL (8.8-10.2); CREATININE FOR GFR 1.3 MG/DL (0.55-1.30); GLOMERULAR FILTRATION RATE 41.6 (>32); THYROID STIMULATING HORMONE 0.637 uIU/ML (0.358-3.740)
== END ==
LOC: M SFHCLERA 12:14
PROVIDERS: ATTEND Family Medicine
DX: R25.2 Cramp and spasm (principal); E03.9 Hypothyroidism, unspecified

== ENCOUNTER → 2020-03-26 | Outpatient (REF) | payer MEDICARE, OTHER ==
[~2020-03-26] MED LIST changes: -ASPI81TA85 PO; +ASPI81TA86 PO
[2020-06-18 14:24] LABS: BLOOD UREA NITROGEN SEE SEPARATE REPORT MG/DL (6-20)
== END ==
LOC: M WUC 15:38
PROVIDERS: ATTEND Surgery Vascular Surgery
DX: I71.4 Abdominal aortic aneurysm, without rupture (principal)

== ENCOUNTER → 2020-08-05 | Outpatient (CLI) | payer MEDICARE, OTHER ==
--- NOTE | 2020-08-05 11:41 | REP ---
INDICATION: SOLITARY PULMONARY NODULE. COMPARISON: Chest CT 12/31/2019, chest CT 02/01/2020, PET scan 04/02/2020. CT guided needle biopsy 03/14/2020. Abdomen and pelvis CT with IV contrast dated 12/31/2019. TECHNIQUE: Chest CT without IV contrast. FINDINGS: There is a known left upper lobe pleural-based lung nodule on image 40 measuring 1.6 cm transversely by 2.2 cm AP. On 12/31/2019 the lesion measured 1.5 cm transversely by 1.3 cm AP. On 02/01/2020 the lesion measured 1.5 cm transversely by 1.8 cm AP. The lesion has slightly increased in size over the series of CT studies. There are no other lung nodules or masses. There are no infiltrates or pleural effusions. There is no mediastinal or axillary lymph node enlargement. In the absence of IV contrast study is insensitive for hilar adenopathy. Exam the thoracic aorta is unremarkable except for occasional calcified atheroma. Cardiac size is normal. There is no pericardial effusion. There is a 5.0 cm hiatal hernia. This is unchanged. Upper abdomen: There are 2 hepatic hypodensities 1 in the left lobe medial segment measuring 1.9 cm and the other in the right lobe measuring 1.5 cm. These are unchanged from 12/31/2019, likely hepatic cysts. There is no adrenal mass or nodule. The visualized areas of the pancreas and spleen are unremarkable. IMPRESSION: The known left upper lobe lung nodule has increased in size over the series of studies, as described. This nodule demonstrated non hypermetabolic uptake on the comparison PET scan. There are no other lung masses or nodules. There are no infiltrates or pleural effusions. There is no adenopathy. Hiatal hernia, unchanged. Two hepatic cysts, unchanged. No adrenal nodules or masses. <Electronically signed by Aaron Castillo > 08/05/20 [id number]
== END ==
LOC: M RAD 08:53
PROVIDERS: ATTEND Internal Medicine Pulmonary Disease
DX: R91.1 Solitary pulmonary nodule (principal)

== ENCOUNTER → 2020-09-10 | Outpatient (CLI) | payer MEDICARE, OTHER ==
[2020-09-10 13:34] LABS: BASO % 0.3 % (0.0-1.0); EOS # 0.2 10^3/uL (0.0-0.5); EOS % 2.6 % (0.0-3.0); HEMOGLOBIN 12.7 g/dl (12.0-15.5); LYMPH # 2.1 10^3/uL (1.5-5.0); LYMPH % 35.7 % (24.0-44.0); MEAN CORPUSCULAR HEMOGLOBIN 30.5 pg (27.0-33.0); MEAN CORPUSCULAR VOLUME 98.6 fl (80.0-96.0); MONO # 0.5 10^3/uL (0.0-0.8); NEUTROPHILS # 3.1 10^3/uL (1.5-8.5); NEUTROPHILS % 53.1 % (36.0-66.0); PLATELET COUNT, AUTOMATED 190 10^3/uL (150-450); RED BLOOD COUNT 4.16 10^6/uL (4.00-5.40); WHITE BLOOD COUNT 5.8 10^3/uL (4.0-10.0)
[2020-09-10 13:47] LABS: INR 0.99; PROTHROMBIN TIME 13.3 SECONDS (12.5-14.3)
[2020-09-10 13:48] LABS: PARTIAL THROMBOPLASTIN TIME 26.5 SECONDS (24.2-38.5)
[2020-09-10 15:38] LABS: ALBUMIN 3.5 GM/DL (3.2-5.2); BILIRUBIN,TOTAL 0.4 MG/DL (0.2-1.0); CALCIUM LEVEL 9.3 MG/DL (8.8-10.2); CREATININE FOR GFR 1.21 MG/DL (0.55-1.30); GLOMERULAR FILTRATION RATE 45.2 (>32); POTASSIUM SERUM 4.3 MEQ/L (3.5-5.1); TOTAL PROTEIN 6.9 GM/DL (6.4-8.2)
== END ==
LOC: M PLALAB 09:52
PROVIDERS: ATTEND Internal Medicine Pulmonary Disease
DX: R91.1 Solitary pulmonary nodule (principal)

== ENCOUNTER → 2020-09-20 | Outpatient (CLI) | payer MEDICARE, OTHER ==
[~2020-09-20] MED LIST changes: +ECOT81TA5 PO; +METO1TAB32 PO; +NUPL34CA PO
== END ==
LOC: M LABSMTC 12:03
PROVIDERS: ATTEND Anesthesiology
DX: Z01.812 Encounter for preprocedural laboratory examination (principal); Z20.822 Contact with and (suspected) exposure to COVID-19

== ENCOUNTER 2020-09-25 08:13 | Day surgery (SDC) | payer MEDICARE, OTHER ==
[~2020-09-25] VITALS: Ht 157.5 cm; Wt 65.2 kg
[~2020-09-25 08:13] MED LIST changes: +ALBUTEROL SULFATE 2.5 MG/0.5 ML INH NEB SOLN INH ONE; +LIDOCAINE 4% INJ 5ML AMP INH ONE; +LR 1,000 ML IV ONE; -METO1TAB32 PO; -NUPL34CA PO
--- OUTSIDE RECORDS SUMMARY | 2020-09-25 08:25 | CCD ---
Author Author [facility] Organization [facility] Address Unknown Phone Unavailable Care Team Providers Care Senior Test Analyst Name Role Phone Anupama Rodgers MD Unavailable Unavailable Anupama Rodgers MD Unavailable Unavailable Anupama Rodgers MD Unavailable Unavailable Anupama Rodgesr MD Unavailable Unavailable Anupama Rodgers MD Unavailable Unavailable Anupama Rodgers MD Unavailable Unavailable Anupama Rodgers MD Unavailable Unavailable Anupama Rodgers MD Unavailable Unavailable Anupama Rodgers MD Unavailable Unavailable Anupama Rodgers MD Unavailable Unavailable Anupama Rodgers MD Unavailable Unavailable Anupama Rodgers MD Unavailable Unavailable Anupama Rodgers MD Unavailable Unavailable Anupama Rodgers MD Unavailable Unavailable Anupama Rodgers MD Unavailable Unavailable Anupama Rodgers MD Unavailable Unavailable Anupama Rodgers MD Unavailable Unavailable Anupama Rodgers MD Unavailable Unavailable Anupama Rodgers MD Unavailable Unavailable Anupama Rodgers MD Unavailable Unavailable Anupama Rodgers MD Unavailable Unavailable Anupama Rodgers MD Unavailable Unavailable Anupama Rodgers MD Unavailable Unavailable Anupama Rodgers MD Unavailable Unavailable Erica Cerda MD Unavailable Unavailable Erica Cerda MD Unavailable Unavailable Erica Cerda MD Unavailable Unavailable Erica Cerda MD Unavailable Unavailable Erica Cerda MD Unavailable Unavailable Erica Cerda MD Unavailable Unavailable Erica Cerda MD Unavailable Unavailable Erica Cerda MD Unavailable Unavailable Erica Cerda MD Unavailable Unavailable Erica Cerda MD Unavailable Unavailable Erica Cerda MD Unavailable Unavailable Erica Cerda MD Unavailable Unavailable Erica Cerda MD Unavailable Unavailable Erica Cerda MD Unavailable Unavailable Erica Cerda MD Unavailable Unavailable Erica Cerda MD Unavailable Unavailable Erica Cerda MD Unavailable Unavailable Erica Cerda MD Unavailable Unavailable Erica Cerda MD Unavailable Unavailable Ali, Erica MD Unavailable Unavailable Ali, Erica MD Unavailable Unavailable Ali, Erica MD Unavailable Unavailable Ali, Erica MD Unavailable Unavailable Ali, Erica MD Unavailable Unavailable Ali, Erica MD Unavailable Unavailable Ali, Erica MD Unavailable Unavailable Ali, Erica MD Unavailable Unavailable Ali, Erica MD Unavailable Unavailable Ali, Erica MD Unavailable Unavailable Ali, Erica MD Unavailable Unavailable Ali, Erica MD Unavailable Unavailable Ali, Erica MD Unavailable Unavailable Ali, Erica MD Unavailable Unavailable Ali, Erica MD Unavailable Unavailable Ali, Erica MD Unavailable Unavailable Ali, Erica MD Unavailable Unavailable Ali, Erica MD Unavailable Unavailable Ali, Erica MD Unavailable Unavailable Ali, Erica MD Unavailable Unavailable Ali, Erica MD Unavailable Unavailable Ali, Erica MD Unavailable Unavailable Ali, Erica MD Unavailable Unavailable Ali, Erica MD Unavailable Unavailable Ali, Erica MD Unavailable Unavailable Ali, Erica MD Unavailable Unavailable Ali, Erica MD Unavailable Unavailable Ali, Erica MD Unavailable Unavailable Ali, Erica MD Unavailable Unavailable Ali, Erica MD Unavailable Unavailable Re-disclosure Warning The records that you are about to access may contain information from federally-assisted alcohol or drug abuse programs. If such information is present, then the following federally mandated warning applies: This information has been disclosed to you from records protected by federal confidentiality rules (42 CFR part 2). The federal rules prohibit you from making any further disclosure of this information unless further disclosure is expressly permitted by the written consent of the person to whom it pertains or as otherwise permitted by 42 CFR part 2. A general authorization for the release of medical or other information is NOT sufficient for this purpose. The Federal rules restrict any use of the information to criminally investigate or prosecute any alcohol or drug abuse patient.The records that you are about to access may contain highly sensitive health information, the redisclosure of which is protected by Article 27-F of the [place] Public [employer] law. If you continue you may have access to information: Regarding HIV / AIDS; Provided by facilities licensed or operated by the [place] Office of Mental Health; or Provided by the [place] Office for People With Developmental Disabilities. If such information is present, then the following [place] mandated warning applies: This information has been disclosed to you from confidential records which are protected by state law. State law prohibits you from making any further disclosure of this information without the specific written consent of the person to whom it pertains, or as otherwise permitted by law. Any unauthorized further disclosure in violation of state law may result in a fine or mcfp sentence or both. A general authorization for the release of medical or other information is NOT sufficient authorization for further disc losure. Encounters Encounter Providers Location Date Indications Data Source(s ) Office Visit Attender: Erica Cerda MD Main office - [place] 08/09/2020 09:45:00 AM EST MEDENT ([facility], ) Unknown [address] [facility] [place] [address] 08/08/2020 12:00:00 AM EST eCW1 ([facility]) Outpatient Attender: Erica Cerda MD Main office - [place] 05/10/2020 10:30:00 AM EDT MEDENT ([facility], ) Outpatient Attender: Anupama Barrett/Aaron/Richard/Georges ndcleve 04/10/2020 10:30:00 AM EDT MEDENT ([facility], ) Outpatient [id number] 03/27/2020 02:22:06 PM EDT - 03/27/2020 02:16:00 PM EDT Lab test [facility] Lab test Patient discharged. Unknown [address] [facility] [place] [address] 03/18/2020 12:00:00 AM EDT eCW1 ([facility]) Office Visit Attender: Erica Cerda MD Main office - [place] 02/23/2020 11:00:00 AM EDT MED[facility] ([facility], ) Unknown [address] [facility] [address] 02/20/2020 12:00:00 AM EDT eCW1 ([facility]) Outpatient 02/15/2020 05:32:00 AM EDT [facility] Unknown [address] [facility] [place] [address] 02/13/2020 12:00:00 AM EDT eCW1 ([facility]) [facility] [address] [facility] [place] [address] 02/12/2020 12:00:00 AM EDT eCW1 ([facility]) Outpatient Attender: Anupama Barrett/Aaron/Richard/Georges ndl 02/06/2020 01:30:00 PM EDT MEDENT ([facility] MARISSA Whitman) [facility] [address] [place] [address], [place] [address] 01/30/2020 12:00:00 AM EDT eCW1 ([facility]) Unknown [address] [place] [address] [place] [address] 01/29/2020 12:00:00 AM EDT eCW1 ([facility]) Outpatient 01/11/2020 09:20:00 PM EDT [facility] [address] [place] [address] 01/09/2020 12:00:00 AM EDT eCW1 ([facility]) [address] [place] [address] 12/23/2019 12:00:00 AM EDT eCW1 ([facility]) [address] [place] [address] 12/20/2019 12:00:00 AM EDT eCW1 ([facility]) Outpatient 12/19/2019 05:24:00 AM EDT [facility] Outpatient 12/18/2019 08:34:00 AM EDT [facility] Outpatient Attender: Erica Cerda MD [facility] 11/24/2019 10:45:00 AM EDT MEDENT ([facility] MARISSA Max) [address] [place] [address] 11/23/2019 12:00:00 AM EDT eCW1 ([facility]) [address] [place] [address] 11/20/2019 12:00:00 AM EDT eCW1 ([facility]) [address] [place] [address] 11/14/2019 12:00:00 AM EDT eCW1 ([facility]) [facility] [address] [facility] [address] 11/02/2019 12:00:00 AM EST eCW1 ([facility]) [facility] [address] [facility] [place] [address] 11/02/2019 12:00:00 AM EST eCW1 ([facility]) [facility] [address] [facility] [address] 10/27/2019 12:00:00 AM EST eCW1 ([facility]) [facility] [address] [facility] [address] 2019 12:00:00 AM EST eCW1 ([facility]) [facility] [address] [facility] [address] 10/12/2019 12:00:00 AM EST eCW1 ([facility]) [facility] [address] [facility] [address] 10/10/2019 12:00:00 AM EST eCW1 ([facility]) Outpatient 09/29/2019 03:41:00 PM EST [facility] [address] [facility] [address] 09/29/2019 12:00:00 AM EST [facility]CW1 [facility] [address] [facility] [address] 09/26/2019 12:00:00 AM EST eCW1 ([facility]) [facility] [address] [facility] [address] 09/15/2019 12:00:00 AM EST eCW1 ([facility]) [facility] [address] [facility] [address] 09/08/2019 12:00:00 AM EST eCW1 ([facility]) [facility] [address] [facility] [address] 09/01/2019 12:00:00 AM EST eCW1 ([facility]) [facility] [address] [facility] [address] 08/25/2019 12:00:00 AM EST eCW1 ([facility]) [facility] [address] [facility] [address] 08/18/2019 12:00:00 AM EST eCW1 ([facility]) [facility] [address] [facility] [address] 08/11/2019 12:00:00 AM EST eCW1 ([facility]) Outpatient 08/09/2019 06:29:00 AM EST [facility] [address] [facility] [address] 08/04/2019 12:00:00 AM EST eCW1 ([facility]) [facility] [address] [facility] [address] 08/04/2019 12:00:00 AM EST eCW1 ([facility]) Immunizations Vaccine Date Status Description Data Source(s) influenza, recombinant, quadrIvalent,injectable, prese rvative free 07/23/2020 03:45:00 PM EST completed eCW1 ([facility]) Medications Medication Brand Name Start Date Product Form Dose Route Admi nistrative Instructions Pharmacy Instructions Status Indications Reaction Description Data Source(s) POLYETHYLENE GLYCOL 3350 142 MG/ML Oral Solution [Shilpa lax] MiraLax 17 GM MiraLax 17 GM 07/23/2020 12:00:00 AM EST 1.0 {packet_mixed_with_8_ou nces_of_fluid} active MiraLax 17 GM eCW1 (Replaced by [facility]) ropinirole 0.25 MG Oral Tablet Ropinirole HCl 0.25 MG Ropini role HCl 0.25 MG 03/18/2020 12:00:00 AM EDT active Ropinirole HCl 0.25 MG eCW1 ([facility]) ropinirole 0.25 MG Oral Tablet Ropinirole HCl 0.25 MG Ropini role HCl 0.25 MG 03/18/2020 12:00:00 AM EDT active Ropinirole HCl 0.25 MG eCW1 ([facility]) Nuplazid Nuplazid 03/04/2020 12:00:00 AM EDT ORAL activ e MEDENT ([facility], ) Paroxetine HCL Paroxetine HCL 02/23/2020 12:00:00 AM EDT OR AL completed MEDENT ([facility], ) Paroxetine HCL Paroxetine HCL 11/24/2019 12:00:00 AM EDT OR AL completed MEDENT ([facility] ) Donepezil hydrochloride 10 MG Oral Tablet Donepezil HCL 11/24/2019 12:00:00 AM EDT ORAL active MEDENT ([facility], ) Sulfamethoxazole 800 MG / Trimethoprim 1 60 MG Oral Tablet [Bactrim] Bactrim DS 800-160 MG Bactrim DS 800-160 MG 11/02/2019 12:00:00 AM EST active 1 tablet eCW1 ([facility]) Sulfamethoxazole 800 MG / Trimethoprim 1 60 MG Oral Tablet [Bactrim] Bactrim DS 800-160 MG Bactrim DS 800-160 MG 11/02/2019 12:00:00 AM EST 1.0 {table t} suspended Bactrim DS 800-160 MG eCW1 ( [facility]) Sulfamethoxazole 800 MG / Trimethoprim 1 60 MG Oral Tablet [Bactrim] Bactrim DS 800-160 MG Bactrim DS 800-160 MG 11/02/2019 12:00:00 AM EST active 1 tablet eCW1 ([facility]) Sulfamethoxazole 800 MG / Trimethoprim 1 60 MG Oral Tablet [Bactrim] Bactrim DS 800-160 MG Bactrim DS 800-160 MG 11/02/2019 12:00:00 AM EST suspended 1 tablet eCW1 ([facility]) Sulfamethoxazole 800 MG / Trimethoprim 1 60 MG Oral Tablet [Bactrim] Bactrim DS 800-160 MG Bactrim DS 800-160 MG 11/02/2019 12:00:00 AM EST suspended 1 tablet eCW1 ([facility]) Sulfamethoxazole 800 MG / Trimethoprim 1 60 MG Oral Tablet [Bactrim] Bactrim DS 800-160 MG Bactrim DS 800-160 MG 10/12/2019 12:00:00 AM EST 1.0 {table t} suspended Bactrim DS 800-160 MG eCW1 ( [facility]) Sulfamethoxazole 800 MG / Trimethoprim 1 60 MG Oral Tablet [Bactrim] Bactrim DS 800-160 MG Bactrim DS 800-160 MG 10/12/2019 12:00:00 AM EST suspended 1 tablet eCW1 ([facility]) Sulfamethoxazole 800 MG / Trimethoprim 1 60 MG Oral Tablet [Bactrim] Bactrim DS 800-160 MG Bactrim DS 800-160 MG 10/12/2019 12:00:00 AM EST active 1 tablet eCW1 ([facility]) Sulfamethoxazole 800 MG / Trimethoprim 1 60 MG Oral Tablet [Bactrim] Bactrim DS 800-160 MG Bactrim DS 800-160 MG 10/12/2019 12:00:00 AM EST 1.0 {table t} suspended Bactrim DS 800-160 MG eCW1 ( [facility]) Sulfamethoxazole 800 MG / Trimethoprim 1 60 MG Oral Tablet [Bactrim] Bactrim DS 800-160 MG Bactrim DS 800-160 MG 10/12/2019 12:00:00 AM EST active 1 tablet eCW1 ([facility]) Sulfamethoxazole 800 MG / Trimethoprim 1 60 MG Oral Tablet [Bactrim] Bactrim DS 800-160 MG Bactrim DS 800-160 MG 10/12/2019 12:00:00 AM EST suspended 1 tablet eCW1 ([facility]) Sulfamethoxazole 800 MG / Trimethoprim 1 60 MG Oral Tablet [Bactrim] Bactrim DS 800-160 MG Bactrim DS 800-160 MG 10/12/2019 12:00:00 AM EST active 1 tablet eCW1 ([facility]) Sulfamethoxazole 800 MG / Trimethoprim 1 60 MG Oral Tablet [Bactrim] Bactrim DS 800-160 MG Bactrim DS 800-160 MG 10/12/2019 12:00:00 AM EST 1.0 {table t} active Bactrim DS 800-160 MG eCW1 ( [facility]) Sulfamethoxazole 800 MG / Trimethoprim 1 60 MG Oral Tablet [Bactrim] Bactrim DS 800-160 MG Bactrim DS 800-160 MG 10/12/2019 12:00:00 AM EST suspended 1 tablet eCW1 ([facility]) Sulfamethoxazole 800 MG / Trimethoprim 1 60 MG Oral Tablet [Bactrim] Bactrim DS 800-160 MG Bactrim DS 800-160 MG 10/12/2019 12:00:00 AM EST 1.0 {table t} suspended Bactrim DS 800-160 MG eCW1 ( [facility]) Sulfamethoxazole 800 MG / Trimethoprim 1 60 MG Oral Tablet [Bactrim] Bactrim DS 800-160 MG Bactrim DS 800-160 MG 10/12/2019 12:00:00 AM EST 1.0 {table t} suspended Bactrim DS 800-160 MG eCW1 ( [facility]) Amoxicillin 500 MG / Clavulanate 125 MG Oral Tablet Amoxicillin-Pot Clavulanate 500-125 MG Amoxicillin-Pot Clavulanate 500-125 MG 09/26/2019 12:00:00 AM ES T active 1 tablet eCW1 ([facility]) Sodium Phosphate, Dibasic 59.3 MG/ML / S odium Phosphate, Monobasic 161 MG/ML Enema Fleet Enema 7-19 GM/118ML Fleet Enema 7-19 GM/118ML 09/26/2019 12:00:00 AM EST active as directed eCW1 ([facility]) Omeprazole 40 MG UNK 07/31/2019 12:00:00 AM EST suspended 1 capsule 30 minutes before morning meal eCW1 ([facility]) Omeprazole 40 MG Delayed Release Oral Capsule Omeprazole 40 MG 07/31/2019 12:00:00 AM EST active 1 capsul e eCW1 ([facility]) Omeprazole 40 MG Delayed Release Oral Capsule Omeprazole 40 MG 07/31/2019 12:00:00 AM EST suspended 1 capsule 30 minutes before morning meal eCW1 ([facility]) Omeprazole 40 MG Delayed Release Oral Capsule Omeprazole 40 MG 07/31/2019 12:00:00 AM EST active 1 capsul e 30 minutes before morning meal eCW1 ([facility]) Omeprazole 40 MG Delayed Release Oral Capsule Omeprazole 40 MG 07/31/2019 12:00:00 AM EST active 1 capsul e eCW1 ([facility]) Omeprazole 40 MG UNK 07/31/2019 12:00:00 AM EST a ctive 1 capsule eCW1 ([facility]) Omeprazole 40 MG Delayed Release Oral Capsule Omeprazole 40 MG 07/31/2019 12:00:00 AM EST suspended 1 capsule 30 minutes before morning meal eCW1 ([facility]) Omeprazole 40 MG Delayed Release Oral Capsule Omeprazole 40 MG 07/31/2019 12:00:00 AM EST active 1 capsul e eCW1 ([facility]) Omeprazole 40 MG Delayed Release Oral Capsule Omeprazole 40 MG 07/31/2019 12:00:00 AM EST 1.0 {capsule} active O meprazole 40 MG eCW1 ([facility]) Omeprazole 40 MG Delayed Release Oral Capsule Omeprazole 40 MG 07/31/2019 12:00:00 AM EST active 1 capsul e eCW1 ([facility]) Omeprazole 40 MG Delayed Release Oral Capsule Omeprazole 40 MG 07/31/2019 12:00:00 AM EST active 1 capsul e eCW1 ([facility]) Omeprazole 40 MG Delayed Release Oral Capsule Omeprazole 40 MG 07/31/2019 12:00:00 AM EST active 1 capsul e eCW1 ([facility]) Omeprazole 40 MG Delayed Release Oral Capsule Omeprazole 40 MG 07/31/2019 12:00:00 AM EST 1.0 {capsule} active O meprazole 40 MG eCW1 ([facility]) Omeprazole 40 MG Delayed Release Oral Capsule Omeprazole 40 MG 07/31/2019 12:00:00 AM EST suspended 1 capsule 30 minutes before morning meal eCW1 ([facility]) Omeprazole 40 MG Delayed Release Oral Capsule Omeprazole 40 MG 07/31/2019 12:00:00 AM EST active 1 capsul e 30 minutes before morning meal eCW1 ([facility]) Omeprazole 40 MG Delayed Release Oral Capsule Omeprazole 40 MG 07/31/2019 12:00:00 AM EST suspended 1 capsule 30 minutes before morning meal eCW1 ([facility]) Omeprazole 40 MG Delayed Release Oral Capsule Omeprazole 40 MG 07/31/2019 12:00:00 AM EST suspended 1 capsule 30 minutes before morning meal eCW1 ([facility]) Omeprazole 40 MG UNK 07/31/2019 12:00:00 AM EST suspended 1 capsule 30 minutes before morning meal eCW1 ([facility]) Omeprazole 40 MG Delayed Release Oral Capsule Omeprazole 40 MG 07/31/2019 12:00:00 AM EST active 1 capsul e eCW1 ([facility]) Omeprazole 40 MG Delayed Release Oral Capsule Omeprazole 40 MG 07/31/2019 12:00:00 AM EST 1.0 {capsule} active O meprazole 40 MG eCW1 ([facility]) Omeprazole 40 MG Delayed Release Oral Capsule Omeprazole 40 MG 07/31/2019 12:00:00 AM EST active 1 capsul e eCW1 ([facility]) Omeprazole 40 MG Delayed Release Oral Capsule Omeprazole 40 MG 07/31/2019 12:00:00 AM EST suspended 1 capsule 30 minutes before morning meal eCW1 ([facility]) Omeprazole 40 MG Delayed Release Oral Capsule Omeprazole 40 MG 07/31/2019 12:00:00 AM EST active 1 capsul e eCW1 ([facility]) Omeprazole 40 MG Delayed Release Oral Capsule Omeprazole 40 MG 07/31/2019 12:00:00 AM EST suspended 1 capsule 30 minutes before morning meal eCW1 ([facility]) Omeprazole 40 MG Delayed Release Oral Capsule Omeprazole 40 MG 07/31/2019 12:00:00 AM EST 1.0 {capsule} active O meprazole 40 MG eCW1 ([facility]) Omeprazole 40 MG Delayed Release Oral Capsule Omeprazole 40 MG 07/31/2019 12:00:00 AM EST active 1 capsul e 30 minutes before morning meal eCW1 ([facility]) Omeprazole 40 MG Delayed Release Oral Capsule Omeprazole 40 MG 07/31/2019 12:00:00 AM EST active 1 capsul e eCW1 ([facility]) Omeprazole 40 MG Delayed Release Oral Capsule Omeprazole 40 MG 07/31/2019 12:00:00 AM EST suspended 1 capsule 30 minutes before morning meal eCW1 ([facility]) Omeprazole 40 MG UNK 07/31/2019 12:00:00 AM EST suspended 1 capsule 30 minutes before morning meal eCW1 ([facility]) Omeprazole 40 MG Delayed Release Oral Capsule Omeprazole 40 MG 07/31/2019 12:00:00 AM EST active 1 capsul e 30 minutes before morning meal eCW1 ([facility]) Omeprazole 40 MG Delayed Release Oral Capsule Omeprazole 40 MG 07/31/2019 12:00:00 AM EST active 1 capsul e eCW1 ([facility]) Omeprazole 40 MG UNK 07/31/2019 12:00:00 AM EST suspended 1 capsule 30 minutes before morning meal eCW1 ([facility]) Omeprazole 40 MG Delayed Release Oral Capsule Omeprazole 40 MG 07/31/2019 12:00:00 AM EST 1.0 {capsule} active O meprazole 40 MG eCW1 ([facility]) Omeprazole 40 MG Delayed Release Oral Capsule Omeprazole 40 MG 07/31/2019 12:00:00 AM EST active 1 capsul e eCW1 ([facility]) Omeprazole 40 MG UNK 07/31/2019 12:00:00 AM EST a ctive 1 capsule eCW1 ([facility]) Omeprazole 40 MG Delayed Release Oral Capsule Omeprazole 40 MG 07/31/2019 12:00:00 AM EST suspended 1 capsule 30 minutes before morning meal eCW1 ([facility]) Omeprazole 40 MG Delayed Release Oral Capsule Omeprazole 40 MG 07/31/2019 12:00:00 AM EST suspended 1 capsule 30 minutes before morning meal eCW1 ([facility]) Omeprazole 40 MG Delayed Release Oral Capsule Omeprazole 40 MG 07/31/2019 12:00:00 AM EST active 1 capsul e eCW1 ([facility]) gabapentin 300 MG Oral Capsule Gabapentin 06/23/2019 12:00:00 AM EDT ORAL completed MEDENT ([facility] ) Insurance Providers Payer name Policy type / Coverage type Policy ID Covered republican ID Covered republican's relationship to rodriguez Policy Rodriguez Plan Information FOR LIFE [id number] [facility] [id number] MEDICARE [id number] [id number] FOR LIFE O [id number] S [id number] MEDICARE C [id number] S [id number] G18 MEDICARE [id number] SP [id number] ANSI-Commercial [id number] ANSI-Medicare Part B [id number] ANSI-Commercial [id number] ANSI-Medicare Part B [id number] ANSI-Medicare Part B [id number] ANSI-Commercial [id number] Problems, Conditions, and Diagnoses Code Display Name Description Problem Type Effective Dates Data Source(s) 074596021 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 Problem 08/09/2020 12:00:00 AM EST ME DENT ([facility]) R15.9 95115695 Incontinence of feces, unspecifi ed fecal incontinence type Problem 07/23/2020 12:00:00 AM EST eCW1 ([facility]) 52897433 Essential hypertension Essential hypertension Problem 04/02/2020 12:00:00 AM EDT MEDENT ([facility]) G25.81 79541391 Restless leg Problem 03/18/2020 12:00:00 AM EDT eCW1 ([facility]) H91.91 122728093 Decreased hearing of right ear Problem 02/25/2020 12:00:00 AM EDT eCW1 ([facility]) H91.91 134077132 Hearing loss of right ear, unspe cified hearing loss type Problem 02/20/2020 12:00:00 AM EDT eCW1 ([facility]) I71.4 37673614 Abdominal aortic aneurysm (AAA) without r upture Problem 01/14/2020 12:00:00 AM EDT eCW1 ([facility]) I71.4 97739894 Abdominal aortic aneurysm (AAA) without r upture Problem 01/14/2020 12:00:00 AM EDT eCW1 ([facility]) R91.1 919612483 Lung nodule Problem 01/09/2020 12:00:00 AM E DT eCW1 ([facility]) R91.1 061132109 Lung nodule Problem 01/09/2020 12:00:00 AM E DT eCW1 ([facility]) G20 84682372 Parkinsons Problem 11/25/2019 12:00:00 AM ED T eCW1 ([facility]) G20 43971084 Parkinsons Problem 11/25/2019 12:00:00 AM ED T eCW1 ([facility]) R41.82 256458475 Altered mental status, unspecifi ed altered mental status type Problem 11/17/2019 12:00:00 AM EDT eCW1 ([facility]) R41.82 775365162 Altered mental status, unspecifi ed altered mental status type Problem 11/17/2019 12:00:00 AM EDT eCW1 ([facility]) I96 99949503 Skin necrosis Problem 08/11/2019 12:00:00 AM EST eCW1 ([facility]) I96 67371035 Skin necrosis Problem 08/11/2019 12:00:00 AM EST eCW1 ([facility] [facility] S51.811D [id number] Laceration of right forearm, s ubsequent encounter Problem 08/10/2019 12:00:00 AM EST eCW1 ([facility]) S51.811D [id number] Laceration of right forearm, s ubsequent encounter Problem 08/10/2019 12:00:00 AM EST eCW1 ([facility]) S51.811A [id number] Laceration of right forearm, i nitial encounter Problem 08/04/2019 12:00:00 AM EST eCW1 ([facility]) S51.811A [id number] Laceration of right forearm, i nitial encounter Problem 08/04/2019 12:00:00 AM EST eCW1 ([facility]) Surgeries/Procedures Procedure Description Date Indications Data Source(s) Spirometry 02/06/2020 12:00:00 AM DOUGLAS FINLEY ([facility]) Office Visit, Est Pt., Level 2 FC 11/02/2019 12:00:00 AM EST eCW1 ([facility]) Office Visit, Est Pt., Level 3 PC 11/02/2019 12:00:00 AM EST eCW1 ([facility]) URINE-NO MICRO 11/02/2019 12:00:00 AM EST eCW1 ([facility]) Office Visit, Est Pt., Level 3 FC 09/01/2019 12:00:00 AM EST eCW1 ([facility]) TOÑA SUBQ TISSUE 20 SQ CM/< 08/25/2019 12:00:00 AM EST eCW1 ([facility]) Influenza immunization administered or previously received 08/25/2019 12:00:00 AM EST eCW1 ([facility]) Office Visit, New Pt., Level 3 FC 08/04/2019 12:00:00 AM EST eCW1 ([facility]) Office Visit, New Pt., Level 3 PC 08/04/2019 12:00:00 AM EST eCW1 ([facility]) Results ID Date Data Source [id number] 09/20/2020 12:30:00 PM EST [facility] Name Value Range Interpretation Code Description Data Aarti rce(s) Supporting Document(s) SARS coronavirus 2 RNA Not Detected [facility] [place] This lab was ordered by [facility] and reported by [facility]. ID Date Data Source [id number] 03/26/2020 01:50:00 PM EDT [facility] ([facility]) Name Value Range Interpretation Code Description Data Aarti rce(s) Supporting Document(s) Creatinine For GFR Laboratory test result 0.55-1.30 Normal (applies to non- numeric results) [facility] ([facility]) Glomerular Filtration Rate Laboratory test result Normal (applies to non- numeric results) [facility] ([facility]) ID Date Data Source [id number] 03/26/2020 01:50:00 PM EDT [facility] ([facility]) Name Value Range Interpretation Code Description Data Aarti rce(s) Supporting Document(s) Urea nitrogen [Mass/volume] in Serum or Plasma Laboratory test r esult 6-20 Above high normal [facility] ([facility]) SEE SEPARATE REPORT Testing performed at reference lab . Report copy to follow on a separate form. 06/18/20 REF LAB#:[id number] ID Date Data Source [id number] 03/26/2020 01:50:00 PM EDT [facility] Name Value Range Interpretation Code Description Data Aarti rce(s) Supporting Document(s) Urea nitrogen [Mass/volume] in Serum or Plasma 20 mg/dL 7 - 18 Above high normal [facility] ID Date Data Source [id number] 03/26/2020 01:50:00 PM EDT [facility] Name Value Range Interpretation Code Description Data Aarti rce(s) Supporting Document(s) CREATININE SERUM 1.47 mg/dL 0.55 - 1.02 Above high normal [facility] AGE 84 yrs [facility] HEIGHT NA [facility] eGFR NON-AFR AMR 34 [facility] eGFR AFR AMR 41 [facility] Estimated GFR reference range: > 60 ml/min/1.73m >18 years: Calculated using IDMS traceable MDRD Study Equation <18 years: Calculated using IDMS traceable Beside Schartz Equation ID Date Data Source [id number] 02/06/2020 02:31:00 PM EDT [facility] ([facility]) Name Value Range Interpretation Code Description Data Aarti rce(s) Supporting Document(s) Prothrombin Time 13.6 s 11.8-14.0 Normal (applies to non-numeric results) [facility] ([facility]) pre-procedure labs acceptable Inr 1.07 Normal (applies to non-numeric resul ts) [facility] ([facility]) pre-procedure labs acceptable ID Date Data Source [id number] 02/06/2020 02:31:00 PM EDT [facility] ([facility]) Name Value Range Interpretation Code Description Data Aarti rce(s) Supporting Document(s) Platelets [#/volume] in Blood by Automated count 226 10 150-450 Normal (applies to non-numeric results) [facility] ([facility]) pre-procedure labs acceptable aPTT in Platelet poor plasma by Coagulation assay 27.9 s 25.0-38.4 Normal (applies to non-numeric results) [facility] ([facility]) pre-procedure labs acceptable ID Date Data Source [id number] 02/06/2020 12:49:00 PM EDT [facility] ([facility]) Name Value Range Interpretation Code Description Data Aarti rce(s) Supporting Document(s) FVC-%Pred-Pre 77 L [facility] ([facility]) PDFReport Laboratory test result [facility] ([facility]) FVC-Pre 1.93 L [facility] ([facility]) FVC-Pred 2.48 L [facility] ([facility]) Fev1-Pre 1.51 L [facility] ([facility]) FVC-LLN 1.79 L [facility] ([facility]) Fev1-Pred 1.84 L [facility] ([facility]) Fev1-%Pred-Pre 82 L [facility] ([facility]) Fev6-Pred 2.33 L [facility] ([facility]) Fev6-Pre 1.93 L [facility] ([facility]) Fev1-LLN 1.25 L [facility] ([facility]) Fev6-LLN 1.65 L [facility] ([facility]) Fev6-%Pred-Pre 82 L [facility] ([facility]) Bfj1bxv-Wpim 73 % [facility] ([facility]) Rzn7lwd-Ewg 78 % [facility] ([facility]) Iad8zwy-DRZ 63 % [facility] ([facility]) Bvn6ilu-%Pred-Pre 106 % [facility] ([facility]) Jzi4tef-Cvzr 94 % [facility] ([facility]) Fzb4dok-Vbm 100 % [facility] ([facility]) FEFMax-Pred 4.50 L/E/sec [facility] ([facility]) End4iah-%Pred-Pre 106 % [facility] ([facility]) FEFMax-%Pred-Pre 122 L/E/sec [facility] ([facility]) [id number]-Gkfl 1.25 L/E/sec [facility] ([facility]) FEFMax-LLN 2.78 L/E/sec [facility] ([facility]) FEFMax-Pre 5.51 L/E/sec [facility] ([facility]) Ubc3890-Kdg 1.32 L/E/sec [facility] ([facility]) Dot2842-IMH 0.01 L/E/sec [facility] ([facility]) Wsb2122-%Pred-Pre 104 L/E/sec [facility] ([facility]) Krq4mse6-Pfh 78 % [facility] ([facility]) Lrk1amn0-%Pred-Pre 101 % [facility] ([facility]) ExpTime-Pre 5.88 sec [facility] ([facility]) Zbf5raa6-Vcai 77 % [facility] ([facility]) Izi2oos3-RGK 68 % [facility] ([facility]) ID Date Data Source LDH LACTATE DEHYDROGENASE 01/09/2020 12:00:00 AM EDT eCW1 ([facility]) Name Value Range Interpretation Code Description Data Aarti rce(s) Supporting Document(s) 185 84-246 LDH LACTATE DEHYDROGENASE eCW1 ([facility]) ID Date Data Source ERYTHROCYTE SEDIMENTATION RATE 01/09/2020 12:00:00 AM EDT eC W1 ([facility]) Name Value Range Interpretation Code Description Data Aarti rce(s) Supporting Document(s) 21 0-30 ERYTHROCYTE SEDIMENTATION RATE eCW1 ([facility]) ID Date Data Source C REACTIVE PROTEIN QUANTITATIV (At [facility]) 01/09/2020 12:00 :00 AM EDT eCW1 ([facility]) Name Value Range Interpretation Code Description Data Aarti rce(s) Supporting Document(s) 0.45 0.00-0.30 C REACTIVE PROTEIN QUANTI TATIV eCW1 ([facility]) ID Date Data Source Comprehensive Metabolic Profile (CMP) 01/09/2020 12:00:00 AM EDT eCW1 ([facility]) Name Value Range Interpretation Code Description Data Aarti rce(s) Supporting Document(s) 98 70-100 GLUCOSE, FASTING eCW1 ([facility]) 18 7-18 BLOOD UREA NITROGEN eCW1 ([facility] access hospital) 48.0 >32 GLOMERULAR FILTRATION RATE eCW 1 ([facility]) 144 136-145 SODIUM LEVEL eCW1 ([facility]) 1.15 0.55-1.30 CREATININE FOR GFR eCW1 (Replaced by [facility]) 28 21-32 CARBON DIOXIDE LEVEL eCW1 ([facility]) 109 98-107 CHLORIDE LEVEL eCW1 ([facility]) 4.1 3.5-5.1 POTASSIUM SERUM eCW1 ([facility]) 9.6 8.8-10.2 CALCIUM LEVEL eCW1 ([facility]) 19 7-37 AST/SGOT eCW1 ([facility]) 29 12-78 ALT/SGPT eCW1 ([facility]) 166 45-117 ALKALINE PHOSPHATASE eCW1 ([facility]) 3.7 3.2-5.2 ALBUMIN eCW1 ([facility]) 7.2 6.4-8.2 TOTAL PROTEIN eCW1 ([facility]) 0.4 0.2-1.0 BILIRUBIN,TOTAL eCW1 ([facility]) 1.06 1.00-1.93 ALBUMIN/GLOBULIN RATIO eCW1 ([facility]) Procedure Social History Code Duration Value Status Description Data Source(s ) Smoking 08/14/2020 12:00:00 AM EST Patient is a former smoker completed Patient is a former smoker [facility] ([facility]) Smoking 07/23/2020 12:00:00 AM EST Former Smoker completed Former Smoker eCW1 ([facility]) Smoking 03/18/2020 12:00:00 AM EDT Former Smoker completed Former Smoker eCW1 ([facility]) Smoking 02/21/2020 12:00:00 AM EDT Former Smoker completed Former Smoker eCW1 ([facility]) Smoking 02/12/2020 12:00:00 AM EDT Former Smoker completed Former Smoker eCW1 ([facility]) Smoking 01/09/2020 12:00:00 AM EDT Former Smoker completed Former Smoker eCW1 ([facility]) Vital Signs ID Date Data Source UNK Name Value Range Interpretation Code Description Data Source(s) Body surface area Derived from formula 1.69 m2 1.69 m2 [facility] ([facility]) Body weight 64.411 kg 64.411 kg [facility] ([facility]) [place] body weight 120 [lb_av] 120 [lb_av] [facility] Body mass index (BMI) [Ratio] 24.4 kg/m2 24.4 k g/m2 [facility] ([facility]) Body weight 142.00 [lb_av] 142.00 [lb_av] [facility] Body height 64 [in_i] 64 [in_i] [facility] ([facility]) 5'4" Body temperature 95.8 [degF] 95.8 [degF] [facility] ([facility]) Oxygen saturation in Arterial blood by Pulse oximetry 96 % 96 % [facility] ([facility]) Heart rate 52 /min 52 /min [facility] ([facility]) Diastolic blood pressure 74 mm[Hg] 74 mm[Hg] [facility] ([facility]) Systolic blood pressure 122 mm[Hg] 122 mm[Hg] [facility] ([facility]) Body surface area Derived from formula 1.68 m2 1.68 m2 [facility] ([facility]) Body weight 63.561 kg 63.561 kg [facility] ([facility]) [place] body weight 120 [lb_av] 120 [lb_av] [facility] ([facility]) Body mass index (BMI) [Ratio] 24.0 kg/m2 24.0 k g/m2 [facility] ([facility]) Body weight 140.12 [lb_av] 140.12 [lb_av] [facility] Body height 64 [in_i] 64 [in_i] [facility] ([facility]) 5'4" Body temperature 97.6 [degF] 97.6 [degF] [facility] ([facility]) Oxygen saturation in Arterial blood by Pulse oximetry 98 % 98 % [facility] ([facility]) Heart rate 71 /min 71 /min [facility] ([facility]) Diastolic blood pressure 82 mm[Hg] 82 mm[Hg] [facility] ([facility]) Systolic blood pressure 112 mm[Hg] 112 mm[Hg] [facility] ([facility]) Systolic blood pressure 128 mm[Hg] 128 mm[Hg] [facility] ([facility]) Body weight 65.318 kg 65.318 kg [facility] ([facility]) Body mass index (BMI) [Ratio] 24.7 kg/m2 24.7 k g/m2 [facility] ([facility]) Body weight 144.00 [lb_av] 144.00 [lb_av] [facility] ([facility]) Body height 64 [in_i] 64 [in_i] [facility], ) 5'4" Body temperature 97.9 [degF] 97.9 [degF] [facility] ([facility], ) Oxygen saturation in Arterial blood by Pulse oximetry 98 % 98 % [facility] ([facility], ) Heart rate 52 /min 52 /min [facility] ([facility], ) Diastolic blood pressure 80 mm[Hg] 80 mm[Hg] [facility] ([facility], ) Diastolic blood pressure 68 mm[Hg] 68 mm[Hg] eCW1 ([facility]) Systolic blood pressure 133 mm[Hg] 133 mm[Hg] e CW1 ([facility]) Body temperature 98.1 [degF] 98.1 [degF] eCW1 ( [facility]) Respiratory rate 16 /min 16 /min eCW1 ([facility]) Heart rate 52 /min 52 /min eCW1 ([facility]) Body mass index (BMI) [Ratio] 26.70 kg/m2 26.70 kg/m2 eCW1 ([facility]) Body height 62 [in_us] 62 [in_us] eCW1 ([facility]) Body weight Measured 146 [lb_av] 146 [lb_av] eC W1 ([facility]) Diastolic blood pressure 83 mm[Hg] 83 mm[Hg] eCW1 ([facility]) Systolic blood pressure 129 mm[Hg] 129 mm[Hg] e CW1 ([facility]) Body temperature 97.5 [degF] 97.5 [degF] eCW1 ( [facility]) Respiratory rate 16 /min 16 /min eCW1 ([facility]) Heart rate 61 /min 61 /min eCW1 ([facility]) Body mass index (BMI) [Ratio] 29.08 kg/m2 29.08 kg/m2 eCW1 ([facility]) Body height 62 [in_us] 62 [in_us] eCW1 ([facility]) Body weight Measured 159 [lb_av] 159 [lb_av] eC W1 ([facility]) Diastolic blood pressure 65 mm[Hg] 65 mm[Hg] eCW1 ([facility]) Systolic blood pressure 113 mm[Hg] 113 mm[Hg] e CW1 ([facility]) Body temperature 99.6 [degF] 99.6 [degF] eCW1 ( [facility]) Respiratory rate 16 /min 16 /min eCW1 ([facility]) Heart rate 71 /min 71 /min eCW1 ([facility]) Body mass index (BMI) [Ratio] 28.90 kg/m2 28.90 kg/m2 eCW1 ([facility]) Body height 62 [in_us] 62 [in_us] eCW1 ([facility]) Body weight Measured 158 [lb_av] 158 [lb_av] eC W1 ([facility]) Diastolic blood pressure 59 mm[Hg] 59 mm[Hg] eCW1 ([facility]) Systolic blood pressure 121 mm[Hg] 121 mm[Hg] e CW1 ([facility]) Body temperature 98.3 [degF] 98.3 [degF] eCW1 ( [facility]) Respiratory rate 18 /min 18 /min eCW1 ([facility]) Heart rate 58 /min 58 /min eCW1 ([facility]) Body mass index (BMI) [Ratio] 30.18 kg/m2 30.18 kg/m2 eCW1 ([facility]) Body height 62 [in_us] 62 [in_us] eCW1 ([facility]) Body weight Measured 165 [lb_av] 165 [lb_av] eC W1 ([facility]) Diastolic blood pressure 75 mm[Hg] 75 mm[Hg] eCW1 ([facility]) Systolic blood pressure 119 mm[Hg] 119 mm[Hg] e CW1 ([facility]) Body temperature 97.7 [degF] 97.7 [degF] eCW1 ( [facility]) Respiratory rate 18 /min 18 /min eCW1 ([facility]) Heart rate 66 /min 66 /min eCW1 ([facility]) Body mass index (BMI) [Ratio] 29.81 kg/m2 29.81 kg/m2 eCW1 ([facility]) Body height 62 [in_us] 62 [in_us] eCW1 ([facility]) Body weight Measured 163 [lb_av] 163 [lb_av] eC W1 ([facility]) Diastolic blood pressure 80 mm[Hg] 80 mm[Hg] eCW1 ([facility]) Systolic blood pressure 148 mm[Hg] 148 mm[Hg] e CW1 ([facility]) Body temperature 98.0 [degF] 98.0 [degF] eCW1 ( [facility]) Respiratory rate 18 /min 18 /min eCW1 ([facility]) Heart rate 57 /min 57 /min eCW1 ([facility]) Body mass index (BMI) [Ratio] 29.81 kg/m2 29.81 kg/m2 eCW1 ([facility]) Body height 62 [in_us] 62 [in_us] eCW1 ([facility]) Body weight Measured 163 [lb_av] 163 [lb_av] eC W1 ([facility]) Diastolic blood pressure 63 mm[Hg] 63 mm[Hg] eCW1 ([facility]) Systolic blood pressure 149 mm[Hg] 149 mm[Hg] e CW1 ([facility]) Body temperature 96.8 [degF] 96.8 [degF] eCW1 ( [facility]) Respiratory rate 18 /min 18 /min eCW1 ([facility]) Heart rate 58 /min 58 /min eCW1 ([facility]) Body mass index (BMI) [Ratio] 29.26 kg/m2 29.26 kg/m2 W1 ([facility]) Body height 62 [in_us] 62 [in_us] eCW1 ([facility]) Body weight Measured 160 [lb_av] 160 [lb_av] eC W1 ([facility]) Diastolic blood pressure 62 mm[Hg] 62 mm[Hg] eCW1 ([facility]) Systolic blood pressure 133 mm[Hg] 133 mm[Hg] e CW1 ([facility]) Body temperature 97.5 [degF] 97.5 [degF] eCW1 ( [facility]) Respiratory rate 16 /min 16 /min eCW1 ([facility]) Heart rate 57 /min 57 /min eCW1 ([facility]) Body mass index (BMI) [Ratio] 29.26 kg/m2 29.26 kg/m2 eCW1 ([facility]) Body height 62 [in_us] 62 [in_us] eCW1 ([facility]) Body weight Measured 160 [lb_av] 160 [lb_av] eC W1 ([facility]) Diastolic blood pressure 61 mm[Hg] 61 mm[Hg] eCW1 ([facility]) Systolic blood pressure 123 mm[Hg] 123 mm[Hg] e CW1 ([facility]) Body temperature 97.9 [degF] 97.9 [degF] eCW1 ( [facility]) Respiratory rate 16 /min 16 /min eCW1 ([facility]) Heart rate 69 /min 69 /min eCW1 ([facility]) Body mass index (BMI) [Ratio] 29.26 kg/m2 29.26 kg/m2 eCW1 ([facility]) Body height 62 [in_us] 62 [in_us] eCW1 ([facility]) Body weight Measured 160 [lb_av] 160 [lb_av] eC W1 ([facility]) Diastolic blood pressure 66 mm[Hg] 66 mm[Hg] eCW1 ([facility]) Systolic blood pressure 135 mm[Hg] 135 mm[Hg] e CW1 ([facility]) Body temperature 98.1 [degF] 98.1 [degF] eCW1 ( [facility]) Respiratory rate 18 /min 18 /min eCW1 ([facility]) Heart rate 62 /min 62 /min eCW1 ([facility]) Body mass index (BMI) [Ratio] 29.26 kg/m2 29.26 kg/m2 eCW1 ([facility]) Body height 62 [in_us] 62 [in_us] eCW1 ([facility]) Body weight Measured 160 [lb_av] 160 [lb_av] eC W1 ([facility]) Diastolic blood pressure 67 mm[Hg] 67 mm[Hg] eCW1 ([facility]) Systolic blood pressure 116 mm[Hg] 116 mm[Hg] e CW1 ([facility]) Body temperature 97.2 [degF] 97.2 [degF] eCW1 ( [facility]) Respiratory rate 18 /min 18 /min eCW1 ([facility]) Heart rate 61 /min 61 /min eCW1 ([facility]) Body mass index (BMI) [Ratio] 29.26 kg/m2 29.26 kg/m2 eCW1 ([facility]) Body height 62 [in_us] 62 [in_us] eCW1 ([facility]) Body weight Measured 160 [lb_av] 160 [lb_av] eC W1 ([facility]) Diastolic blood pressure 80 mm[Hg] 80 mm[Hg] eCW1 ([facility]) Systolic blood pressure 130 mm[Hg] 130 mm[Hg] e CW1 ([facility]) Body temperature 97.8 [degF] 97.8 [degF] eCW1 ( [facility]) Respiratory rate 18 /min 18 /min eCW1 ([facility]) Heart rate 68 /min 68 /min eCW1 ([facility]) Body mass index (BMI) [Ratio] 29.26 kg/m2 29.26 kg/m2 eCW1 ([facility]) Body height 62 [in_us] 62 [in_us] eCW1 ([facility]) Body weight Measured 160 [lb_av] 160 [lb_av] eC W1 ([facility]) Diastolic blood pressure 76 mm[Hg] 76 mm[Hg] eCW1 ([facility]) Systolic blood pressure 132 mm[Hg] 132 mm[Hg] e CW1 ([facility]) Body temperature 98.4 [degF] 98.4 [degF] eCW1 ( [facility]) Respiratory rate 18 /min 18 /min eCW1 ([facility]) Heart rate 63 /min 63 /min eCW1 ([facility]) Body mass index (BMI) [Ratio] 29.26 kg/m2 29.26 kg/m2 eCW1 ([facility]) Body height 62 [in_us] 62 [in_us] eCW1 ([facility]) Body weight Measured 160 [lb_av] 160 [lb_av] eC W1 ([facility]) Diastolic blood pressure 60 mm[Hg] 60 mm[Hg] eCW1 ([facility]) Systolic blood pressure 113 mm[Hg] 113 mm[Hg] e CW1 ([facility]) Body temperature 97.5 [degF] 97.5 [degF] eCW1 ( [facility]) Respiratory rate 18 /min 18 /min eCW1 ([facility]) Heart rate 67 /min 67 /min eCW1 ([facility]) Body mass index (BMI) [Ratio] 29.26 kg/m2 29.26 kg/m2 eCW1 ([facility]) Body height 62 [in_us] 62 [in_us] eCW1 ([facility]) Body weight Measured 160 [lb_av] 160 [lb_av] eC W1 ([facility]) Patient Treatment Plan of Care Planned Activity Planned Date Details Description Data Source (s) POLYETHYLENE GLYCOL 3350 142 MG/ML Oral Solution [Shilpa lax] 07/23/2020 12:00:00 AM EST eCW1 ([facility]) ropinirole 0.25 MG Oral Tablet 03/18/2020 12:00:00 AM EDT eCW1 ([facility]) Sulfamethoxazole 800 MG / Trimethoprim 160 MG Oral Tab let [Bactrim] 11/02/2019 12:00:00 AM EST eCW1 ([facility]) Sulfamethoxazole 800 MG / Trimethoprim 160 MG Oral Tab let [Bactrim] 10/12/2019 12:00:00 AM EST eCW1 ([facility]) Sodium Phosphate, Dibasic 59.3 MG/ML / S odium Phosphate, Monobasic 161 MG/ML Enema 09/26/2019 12:00:00 AM EST eCW1 ([facility]) Amoxicillin 500 MG / Clavulanate 125 MG Oral Tablet 09/26/19 20 12:00:00 AM EST eCW1 ([facility]) Omeprazole 40 MG Delayed Release Oral Capsule 07/31/2019 12:00:00 A M EST eCW1 ([facility]) Omeprazole 40 MG Delayed Release Oral Capsule 07/31/2019 12:00:00 A M EST eCW1 ([facility]) Omeprazole 40 MG Delayed Release Oral Capsule 07/31/2019 12:00:00 A M EST eCW1 ([facility]) Omeprazole 40 MG Delayed Release Oral Capsule 07/31/2019 12:00:00 A M EST eCW1 ([facility])
--- OUTSIDE RECORDS SUMMARY | 2020-09-25 08:25 | CCD ---
Author Author [facility] [employer] [facility] [employer] Organization 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 Name Role Phone Micheal Garces Unavailable PROBLEMS Type Condition ICD9-CM Code QDX87-DD Code Onset Dates Condition S tatus SNOMED Code Notes Problem Osteoporosis, unspecified os teoporosis type, unspecified pathological fracture presence M81.0 Active 084066646 Problem Hypertension, unspecified type I10 Active 3 2868274 Problem Hyperlipidemia, unspecified hyperlipidemia type E7 8.5 Active 07269408 Problem Dysthymia F34.1 Active 63136705 Problem History of hallucinations Z86.59 Active 604973 000 Problem Mood changes R45.86 Active 81205610 Problem Gastroesophageal reflux disease, esophagitis pre sence not specified K21.9 Active 498567799 Problem Constipation, unspecified constipation type K59.00 Active 74042009 Problem Laceration of right forearm, subsequent encounter S51.811D Active 48465344392537496 Problem Altered mental status, unspecified altered mental stat us type R41.82 Active 149761727 Problem Parkinsons G20 Active 39247816 Problem Hearing loss of right ear, unspecified hearing loss type H91.91 Active 061819972 Problem Skin necrosis I96 Active 87513798 Problem History of nicotine dependence Z87.891 Active 1 82935116 Problem Incontinence of feces, unspecified fecal incontinence type R15.9 Active 03730562 Problem Laceration of right forearm, initial encounter S51 .811A Active 01839846493559588 Problem Hypothyroidism, unspecified type E03.9 Active 27549617 Problem Abdominal aortic aneurysm (AAA) without rupture I7 1.4 Active 88135502 Problem Lung nodule R91.1 Active 745249450 Problem Restless leg G25.81 Active 63178721 Problem Decreased hearing of right ear H91.91 Active 4 64344177 ALLERGIES No Known Allergies ENCOUNTERS from 1935 to 2020-08-09 Encounter [facility] Date [facility] [address] [place] [address] Jul, Micheal Garces IMMUNIZATIONS Vaccine Route Administration Date Status Influenza (18 yrs & older) Flublok IM Intramuscular Jul 23, 2020 Administered Influenza (18 yrs & older) Flublok IM Intramuscular May 16 9 Administered TDAP 0.5mL (Boostrix) IM Intramuscular Apr 21, 2019 Administe red Pneumococcal 0.5mL (Prevnar 13) IM Intramuscular May 16, 2019 Administered SOCIAL HISTORY Tobacco Use: Social History Observation Description Date Details (start date - stop date) Former Smoker Sex Assigned At : Social History Observation Description Sex Assigned At Unknown Education: Question Answer Notes Level of Education: High School Audit Question Answer Notes Total Score: 1 Interpretation: Alcohol Education Language: Question Answer Notes Languages spoken: Italian Yarsani: Question Answer Notes Yarsani 33 None Domestic Violence: Question Answer Notes Status: Sexual Hx: Question Answer Notes Had sex in the last 12 months (vaginal, oral, or anal)? No Have you ever had an STD? No Drug and Alcohol Question Answer Notes Total Score: 0 Interpretation: No problems reported Alcohol Screening: Question Answer Notes Did you have a drink containing alcohol in the past year? Ye s Points 1 Interpretation Negative How often did you have six or more drinks on one occas ion in the past year? Never (0 points) How many drinks did you have on a typica l day when you were drinking in the past year? 1 or 2 (0 points) How often did you have a drink containing alcohol in t he past year? Monthly or less (1 point) BMI Care Goal Follow-Up Question Answer Notes Above Normal BMI Follow-Up Dietary management educatio n, guidance, and counseling, Dietary needs education Tobacco Use: Question Answer Notes Are you a: former smoker quit 30 years ago How long has it been since you last smoked? > 10 years 1 packs per day REASON FOR REFERRAL No Information VITAL SIGNS No information MEDICATIONS Medication SIG (Take, Route, Frequency, Duration) Notes Start Da te End Date Status Omeprazole 40 MG 1 capsule Orally Once a day for 90 days 0 2 Jul, 2019 Active Aspir-81 1 tab orally Daily Active Abilify 2 MG 1 tablet Orally Once a day Not-Taking Bactrim DS 800-160 MG 1 tablet Orally Twice a day for 3 days Sep, Not-Taking Levothyroxine Sodium 50 MCG 1 tablet on an empty stoma ch in the morning Orally Once a day Active Losartan Potassium 50 MG 1 tablet Orally Once a day Active Ropinirole HCl 0.25 MG as directed Orally 1 tablet PM 2 days, then may increase to 2 tablets PM for 30 day(s) Feb, Ac tive Fleet Enema 7-19 GM/118ML as directed Rectal once for 1 days Active MiraLax 17 GM 1 packet mixed with 8 ounces of fluid Orally Once a day for 30 day(s) Jun, Active Amlodipine-Atorvastatin 5-10 MG 1 tablet Orally Once a day Active Ibandronate Sodium 150 MG 1 tablet Orally monthly Not-Taking PROCEDURES No Information RESULTS No Results REASON FOR VISIT REFILL MEDICAL (GENERAL) HISTORY Type Description Date Medical History Depression Medical History HTN, goal 140/90 Medical History Hypothyroid Medical History Osteoporosis Medical History gerd Surgical History partial hysterectomy, no oo, 30 yrs Surgical History back surgery, discetcomy, Lumbar 1976 Surgical History right shoulder repai, dislocation, 7 yea rs ago Surgical History lung biopsy 03/06/2020 Hospitalization History mood, 12/2018 Hospitalization History [facility] 11/14/2019- 020 Goals Section No Information Health Concerns No Information MEDICAL EQUIPMENT No Information MENTAL STATUS No Information FUNCTIONAL STATUS No Information ASSESSMENTS No Information PLAN OF TREATMENT Medication Medication Name Sig Start Date Stop Date Omeprazole 40 MG 1 capsule Orally Once a day for 90 days Jul, MiraLax 17 GM 1 packet mixed with 8 ounces of fluid Orally Once a day for 30 day(s) Jun, Insurance Providers Payer Name Payer Address Payer Phone Insured Name Patient Relati onship to Insured Coverage Start Date Coverage End Date MEDICARE Part A and B [address] [facility] [phone] DANNA GUZMAN self FOR LIFE [address] [facility] [phone] DANNA GUZMAN [id number]
--- OUTSIDE RECORDS SUMMARY | 2020-09-25 08:25 | CCD | Continuity of Care Document ---
Author Author Katiana CERDA M.D. Organization Unknown Address [address] [place] [address] Phone [phone] Care Team Providers Care Government Employee Name Role Phone Micheal Garces M.D. AUTM [phone] Problems Active Problems Provider Date Diffuse Lewy body disease Erica Cerda M.D. 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 Onset: 04/25/2019 Low back pain Erica Cerda M.D. Onset: 04/25/2019 Spondylolysis Erica Cerda M.D. Onset: 04/25/2019 Parkinsonism with calcification of basal ganglia Erica Cerda M.D. Onset: 08/09/2020 Social History Type Date Description Comments Sex Unknown Tobacco Use Start: Unknown Patient has never smoked Allergies, Adverse Reactions, Alerts Description No Known Drug Allergies Medications Active Medications SIG Qnty Indications Ordering Provide r Date Nuplazid 34mg Capsules 1 by mouth every morning 90caps Erica Cerda M.D. 03/04/2020 Donepezil HCL 10mg Tablets 1 by mouth every day 90tajohanne Cerda M.D. 11/24/2019 Alprazolam 0.25mg Tablets 1 by mouth half an hour before mri scan. may repeat once if needed. 2tajohanne Cerda M.D. 04/25/2019 History Medications Paroxetine HCL 10mg Tablets 1 by mouth every night at bedtime 30tajohanne Cerda M.D. 02/23/20 20 - 02/28/2020 Immunizations Description No Information Available Vital Signs Date Vital Result Comment 04/25/2019 8:22am BP Systolic 155 mmHg BP Diastolic 90 mmHg Heart Rate 78 /min Respiratory Rate 14 /min Height 71 inches 5'11" Weight 160.00 lb BMI (Body Mass Index) 22.3 kg/m2 [place] Body Weight 155 lb Results Description No Information Available Procedures Description No Information Available Medical Devices Description No Information Available Encounters Type Date Location Provider Dx Diagnosis Office Visit 08/09/2020 10[place] [facility] [place] Dementia with Lewy bodies M43.06 Spondylolysis, lumbar region M54.5 Low back pain 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 08/09/2020 M43.06 Spondylolysis, lumbar region Robert Cerda M.D. 08/09/2020 M54.5 Low back pain Erica Cerda M.D. 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 05/10/2020 G31.83 Dementia with Lewy bodies Erica Cerda M.D. 05/10/2020 M43.06 Spondylolysis, lumbar region Robert Cerda M.D. 05/10/2020 M54.5 Low back pain Erica Cerda M.D. 05/10/2020 G21.11 Neuroleptic induced parkinsonism Erica Cerda M.D. 02/23/2020 G31.83 Dementia with Lewy bodies Erica Cerda M.D. 02/23/2020 M43.06 Spondylolysis, lumbar region Robert Cerda M.D. 02/23/2020 M54.5 Low back pain Erica Cerda M.D. 02/23/2020 G21.11 Neuroleptic induced parkinsonism Erica Cerda M.D. 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 Plan of Treatment No Information Available Functional Status Description No Information Available Mental Status Description No Information Available Referrals Refer to Dr Reason for Referral Status Appt Date Erica Cerda M.D. Created [facility] [address] [place] [address] [phone]
--- OUTSIDE RECORDS SUMMARY | 2020-09-25 08:25 | CCD | Continuity of Care Document ---
Author Author Katiana BRIONES M.D. Organization Unknown Address [address] [place] [address] Phone [phone] Care Team Providers Care Glass Bead Maker Name Role Phone Anju Barreto M.D. AUTM [phone] AUTM Unavailable Micheal Garces D.O. AUTM [phone] Problems Active Problems Provider Date Essential hypertension April Caba MD Onset: 0 Social History Type Date Description Comments Sex Unknown Tobacco Use Start: 08/30/56 End: 08/30/86 Patient is a forme r smoker hx; 1ppd x's 30 years Smoking Status Reviewed: 08/14/20 Patient is a former smoker hx ; 1ppd x's 30 years Allergies, Adverse Reactions, Alerts Description No Known Drug Allergies Medications Active Medications SIG Qnty Indications Ordering Provide r Date Prilosec OTC 20mg Tablets DR 2 tab twice a day Unknown Levothyroxine Sodium 50mcg Tablets 1 tab by mouth every day Unknown Losartan Potassium 50mg Tablets 1 tab by mouth every day Unknown Amlodipine Besylate/Atorvastatin Calcium 5-10mg Tablets 1 tab by mouth every day Micheal Garces D .O. Citalopram Hydrobromide 10mg Table ts 1 tab by mouth every day Micheal Garces D.O. 0 Metoprolol Tartrate 25mg Tablets 1 tab by mouth every day Micheal Garces D.O. Aspirin 81 Low Dose 81mg Chewtabs 1 by mouth every day Unknown Donepezil HCL 10mg Tablets 1 tab once daily Unknown Aripiprazole 2mg Tablets 1 tab by mouth every day Micheal Garces D.O. Immunizations Description No Information Available Vital Signs Date Vital Result Comment 08/14/2020 11:30am BP Systolic 122 mmHg BP Diastolic 74 mmHg Heart Rate 52 /min O2 % BldC Oximetry 96 % Body Temperature 95.8 F Height 64 inches 5'4" Weight 142.00 lb BMI (Body Mass Index) 24.4 kg/m2 [place] Body Weight 120 lb Weight 64.411 kg BSA (Body Surface Area) 1.69 m2 04/10/2020 9:01am BP Systolic 112 mmHg BP Diastolic 82 mmHg Heart Rate 71 /min O2 % BldC Oximetry 98 % Body Temperature 97.6 F Height 64 inches 5'4" Weight 140.12 lb BMI (Body Mass Index) 24.0 kg/m2 [place] Body Weight 120 lb Weight 63.561 kg BSA (Body Surface Area) 1.68 m2 Results Test Acquired Date Facility Test Result H/L Range Note BUN & Creatinine ([facility]) 03/26/2020 [facility] [place] [address] [phone] Blood Urea Nitrogen SEE SEPARATE REP <SEE NOTE> mg/dL High 6-20 1 Creatinine With GFR 03/26/2020 [facility] [place]ter [place] [address] [phone] Creatinine For GFR TNP mg/dL Normal 0.55-1.30 Glomerular Filtration Rate TNP Normal >32 1 SEE SEPARATE REPORT Testing performed at reference lab . Report copy to follow on a separate form. 06/18/20 REF LAB#:[id number] Procedures Description No Information Available Medical Devices Description No Information Available Encounters Type Date Location Provider Dx Diagnosis Office Visit 04/10/2020 10:30a [facility] Anupama velásquez M.D. R91.1 Solitary pulmonary nodule Z87.891 Personal history of nicotine dependence Assessments Date Code Description Provider 08/14/2020 R91.1 Solitary pulmonary nodule Anupama Briones M.D. 08/14/2020 Z87.891 Personal history of nicotine dep endence Anupama Briones M.D. 04/10/2020 R91.1 Solitary pulmonary nodule Anupama Briones M.D. 04/10/2020 Z87.891 Personal history of nicotine dep endence Vishal, Anupama, M.D. Plan of Treatment 08/14/2020 - Anupama Briones M.D.* R91.1 Solitary pulmonary nodule * Z87.891 Personal history of nicotine dependence * * New Labs:* CBC With Differential, Ordered: 08/14/20 * Comprehensive Metabolic Profil, Ordered: 08/14/20 * PT & Aptt, Ordered: 08/14/20 * Fungal Titers([facility]), Ordered: 08/14/20 * Quanteferon TB Gold Test, Ordered: 08/14/20 * New Orders:* Bronchoscopy in [place], Ordered: 08/14/20 * Follow up:* Lab work prior to procedure (1-2 weeks prior) CT iLogic done already, please get CD Follow up in office after procedure. Functional Status Description No Information Available Mental Status Mental Condition Comment Date Status None Active Referrals Refer to Reason for Referral Status Appt Date Radiology/Procedure No auth required Closed 0 Radiology/[place] [id number] Created
--- OUTSIDE RECORDS SUMMARY | 2020-09-25 08:25 | CCD | Continuity of Care Document ---
Author Author Katiana BRIONES M.D. Organization Unknown Address [address] [place] [address] Phone [phone] Care Team Providers Care Skeiner Name Role Phone Anju Barreto M.D. AUTM [phone] AUTM Unavailable Micheal Garces D.O. AUTM [phone] Problems Active Problems Provider Date Essential hypertension [...] lb BMI (Body Mass Index) 24.4 kg/m2 [place] Body Weight 120 lb Weight 64.411 kg BSA (Body Surface Area) 1.69 m2 04/10/2020 9:01am BP Systolic 112 mmHg BP Diastolic 82 mmHg Heart Rate 71 /min O2 % BldC Oximetry 98 % Body Temperature 97.6 F Height 64 inches 5'4" Weight 140.12 lb BMI (Body Mass Index) 24.0 kg/m2 [place] Body Weight 120 lb Weight 63.561 kg BSA (Body Surface Area) 1.68 m2 Results Test Acquired Date Facility Test Result H/L Range Note BUN & Creatinine ([facility]) 03/26/2020 [facility] [place] [address] [phone] Blood Urea Nitrogen SEE SEPARATE REP <SEE NOTE> mg/dL High 6-20 1 Creatinine With GFR 03/26/2020 [facility] [place] [address] [phone] Creatinine For GFR TNP mg/dL Normal 0.55-1.30 Glomerular Filtration Rate TNP Normal >32 1 SEE SEPARATE REPORT Testing performed at reference lab . Report copy to follow on a separate form. 06/18/20 REF LAB#:[id number] Procedures Description No Information Available Medical Devices Description No Information Available Encounters Type Date Location Provider Dx Diagnosis Office Visit 04/10/2020 10:30a [facility] Anupama velásquez M.D. R91.1 Solitary [...] PT & Aptt, Ordered: 08/14/20 * Fungal Titers([facility]), Ordered: 08/14/20 * Quanteferon TB Gold Test, [...] Closed 0 Radiology/[place] [id number] Created
--- OUTSIDE RECORDS SUMMARY | 2020-09-25 08:25 | CCD | Continuity of Care Document ---
Author Author Katiana CERDA M.D. Organization Unknown Address [address] [place] [address] Phone [phone] Care Team Providers Care Lidar Scientist Name Role Phone Micheal Garces M.D. AUTM [phone] Problems Active Problems Provider Date Diffuse Lewy body disease Erica Cerda M.D. 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 Onset: 04/25/2019 Low back pain Erica Cerda M.D. Onset: 04/25/2019 Spondylolysis Erica Cerda M.D. Onset: 04/25/2019 Parkinsonism with calcification of basal ganglia rEica Cerda M.D. Onset: 08/09/2020 Social History Type [...] lb BMI (Body Mass Index) 22.3 kg/m2 [place] Body Weight 155 lb Results Description No Information Available Procedures Description No Information Available Medical Devices Description No Information Available Encounters Type Date Location Provider Dx Diagnosis Office Visit 05/10/2020 10:[place]a [place] G31.83 Dementia with Lewy bodies M43.06 Spondylolysis, lumbar region M54.5 Low back pain G21.11 Neuroleptic induced parkinso nism Office Visit 02/23/2020 11:00a [place] G31.83 Dementia with Lewy bodies M43.06 Spondylolysis, [...] to Dr Reason for Referral Status Appt Erica Mcmahon M.D. Created [facility] [address] [place] [address] [phone]
[2020-09-25] MEDS ORDERED: dexameTHASONE 4 MG/ML 1ML VIAL (J1100 PER 1MG) As Ordered ONE (08:36)
[2020-09-25] MEDS ORDERED: propofoL 200 MG/20 ML VIAL As Ordered ONE (08:36)
[2020-09-25] MEDS ORDERED: MIDAZOLAM INJ 2MG/2ML VIAL (J2250 PER 1MG) As Ordered ONE (08:36)
[2020-09-25] MEDS ORDERED: fentaNYL 100 MCG/2 ML INJECTION (J3010) As Ordered ONE (08:36)
[2020-09-25] MEDS ORDERED: ONDANSETRON 4MG/2ML VIAL As Ordered ONE (08:36)
[2020-09-25] MEDS ORDERED: LIDOCAINE 2% 100MG/5ML SDV (FOR ANES.) As Ordered ONE (08:36)
[2020-09-25] MEDS ORDERED: ROCURONIUM BROMIDE 50 MG/5 ML VIAL As Ordered ONE (08:36)
[2020-09-25] MEDS ORDERED: METO1TAB32 PO (08:48)
[2020-09-25] MEDS ORDERED: NUPL34CA PO (08:52)
[2020-09-25] MEDS ORDERED: EPINEPHrine 1MG/10ML SYRINGE 1.5IN As Ordered ONE (09:12)
[2020-09-25] MEDS ORDERED: CETACAINE SPRAY 5GM As Ordered ONE (09:12)
[2020-09-25] MEDS ORDERED: LACRILUBE (AKWA TEARS) OPHTH OINT 3.5 GM As Ordered ONE (09:56)
[2020-09-25] MEDS ORDERED: SUGAMMADEX SODIUM 500 MG/5 ML VIAL (BRIDION) As Ordered ONE (10:39)
[2020-09-25] MEDS ORDERED: ePHEDrine SULFATE 25 MG/5 ML(5MG/ML) SYRINGE As Ordered ONE (10:58)
--- NOTE | 2020-09-25 11:32 | REP ---
INDICATION: LEFT UPPER LOBE ABNORMALITY. COMPARISON: Comparison chest x-ray March 14, 2020. Comparison chest CT study August 05, 2020.. TECHNIQUE: A single fluoroscopically obtained spot radiograph is provided. 4 minutes 39 seconds of fluoroscopy time is reported. FINDINGS: A single last image hold fluoroscopically obtained spot radiograph of the chest documents bronchoscopic position and fiducial marker at the site of a perihilar mid lung opacity in the left chest. IMPRESSION: Procedural imaging. <Electronically signed by Augusto Clinton > 09/25/20 [id number]
--- NOTE | 2020-09-25 12:01 | REP ---
INDICATION: POST OP EVAL AFTER BRONCH. COMPARISON: 03/14/2020 the latest prior TECHNIQUE: Portable FINDINGS: The technique utilized in obtaining the radiograph has magnified the cardiac silhouette and attenuated the interstitial markings. There is a new patchy opacity in the left upper lobe. Centrally within this opacity there is a linear metallic radiodensity likely a fiducial marker. There is no pneumothorax. There is no significant change in the lung ch other than the aforementioned. The pleural angles are again seen to be sharp. The heart is not enlarged. The osseous structures are unchanged. IMPRESSION: New left upper lobe opacity as described above. Etiology uncertain. Consider follow-up with CT. <Electronically signed by Xavier Fox > 09/25/20 [id number]
[2020-09-25 12:32] VITALS: BP 131/60
--- NOTE | 2020-09-26 15:12 | ECGEPIP ---
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
--- NOTE | 2020-10-09 12:57 | ROOR ---
Patient Name: Katiana Serna Procedure Date: 09/25/2020 9:26 AM Date of : 1935 Admit Type: Outpatient Age: 84 Room: Main OR Note Status: Finalized Attending MD: Anupama Rodgers MD Procedure: Bronchoscopy Indications: Left upper lobe nodule Providers: Anupama Rodgers MD (Doctor), Josse Espinal DO, FCCP (1st Assisting Doctor) Referring MD: Micheal Garces DO (Referring MD) Requesting Physician: Medicines: General Anesthesia, Lidocaine 4% via nebulizer with Albuterol 2.5 mg, Epinephrine 1 mg/10 mL topical 1 mL, Cetacaine topical Complications: No immediate complications. Estimated blood loss: Minimal Procedure: Pre-Anesthesia Assessment: - Prior to the procedure, a History and Physical was performed, and patient medications and allergies were reviewed. The patient's tolerance of previous anesthesia was also reviewed. The risks and benefits of the procedure and the sedation options and risks were discussed with the patient. All questions were answered, and informed consent was obtained. Prior Anticoagulants: The patient has taken no previous anticoagulant or antiplatelet agents. ASA Grade Assessment: II - A patient with mild systemic disease. After reviewing the risks and benefits, the patient was deemed in satisfactory condition to undergo the procedure. - Patient identification and proposed procedure were verified prior to the procedure by the physician, the nurse, the anesthesiologist, the design engineer marine equipment and the telecommunications field technician. The procedure was verified in the procedure room. The Bronchoscope was introduced through the mouth, via the endotracheal tube (the patient was intubated for the procedure) and advanced to the tracheobronchial tree of both lungs. The procedure was accomplished without difficulty. The patient tolerated the procedure well. Findings: The endotracheal tube is in good position. The visualized portion of the trachea is of normal caliber. The marco is sharp. The tracheobronchial tree was examined to at least the first subsegmental level. Bronchial mucosa and anatomy are normal; there was some mucosal cartilage nodularity and webbing, there are no endobronchial lesions, and no secretions. Electromagnetic navigation bronchoscopy was performed. The CT scan was used for planning purposes. A virtual bronchoscopic image was generated using the planning software. The target in the apical-posterior segment of the left upper lobe was marked. A nodule 2.2 cm in size was found and a pathway was created. After a complete airway exam, the locatable guide/extended working channel was inserted and an automatic registration was performed. The navigation phase was then begun to locate the target lesion(s). Positioning centrally (in relation to the lesion) was confirmed using the Olympus radial probe US catheter. The locatable guide was removed from the extended working channel. Fluoroscopy guided transbronchial brushings of a nodule were obtained in the apical-posterior segment of the left upper lobe with a cytology brush and sent for routine cytology. Transbronchial brushing technique was selected because the sampling site was not visible endoscopically. Fluoroscopy guided transbronchial brushings of a nodule were obtained in the apical-posterior segment of the left upper lobe with a micro brush and sent for microbiology analysis. Transbronchial brushing technique was selected because the sampling site was not visible endoscopically. Transbronchial biopsies of a nodule were performed in the apical-posterior segment of the left upper lobe using forceps and sent for histopathology examination. The procedure was guided by fluoroscopy. Transbronchial biopsy technique was selected because the sampling site was not visible endoscopically. Estimated blood loss: minimal. Fiducial marker placement was performed. Once the target lesion was identified, one marker was deployed around the lesion in the apical-posterior segment of the left upper lobe. Impression: - Left upper lobe nodule - The airway examination was normal. - Electromagnetic navigation bronchoscopy was performed. - Transbronchial brushings were obtained. - Transbronchial brushings were obtained. - Transbronchial lung biopsies were performed. - Fiducial marker placement Recommendation: - Await test results. Procedure Code(s): --- Professional --- 95310, Bronchoscopy, rigid or flexible, including fluoroscopic guidance, when performed; with transbronchial lung biopsy(s), single lobe 37925, Bronchoscopy, rigid or flexible, including fluoroscopic guidance, when performed; with brushing or protected brushings 25500, Bronchoscopy, rigid or flexible, including fluoroscopic guidance, when performed; with computer-assisted, image-guided navigation (List separately in addition to code for primary procedure[s]) 97974, Bronchoscopy, rigid or flexible, including fluoroscopic guidance, when performed; with transendoscopic endobronchial ultrasound (EBUS) during bronchoscopic diagnostic or therapeutic intervention(s) for peripheral lesion(s) (List separately in addition to code for primary procedure[s]) CPT copyright 2019 [employer]. All rights reserved. The codes documented in this report are preliminary and upon ui designer review may be revised to meet current compliance requirements. Attending Participation: I personally performed the entire procedure. Anupama Rodgers MD 10/09/2020 12:57:10 PM Josse Espinal DO, [facility] Number of Addenda: 0 Note Initiated On: 09/25/2020 9:26 AM
== END 2020-09-25 12:42 | disposition home or self-care (01) ==
LOC: M SDC 08:13
PROVIDERS: ATTEND Internal Medicine Pulmonary Disease
DX: C34.12 Malignant neoplasm of upper lobe, left bronchus or lung (principal); I10 Essential (primary) hypertension; E78.49 Other hyperlipidemia; E03.9 Hypothyroidism, unspecified; F03.90 Unspecified dementia, unspecified severity, without behavioral disturbance, psychotic disturbance, mood disturbance, and anxiety; Z87.891 Personal history of nicotine dependence; Z79.899 Other long term (current) drug therapy; F41.9 Anxiety disorder, unspecified; F32.9 Major depressive disorder, single episode, unspecified
CPT/HCPCS: 31623; 31627; 31628; 31654; 71045; 76000; 87071; 88104; 88305; 88341; 88342; 93005; A4648; J1100; J2250; J2405; J3010; S2900

== ENCOUNTER → 2020-10-15 | Outpatient (CLI) | payer MEDICARE, OTHER ==
[~2020-10-15] MED LIST changes: -ALBUTEROL SULFATE 2.5 MG/0.5 ML INH NEB SOLN INH ONE; -LIDOCAINE 4% INJ 5ML AMP INH ONE; -LR 1,000 ML IV ONE; +METO1TAB32 PO; +NUPL34CA PO
--- NOTE | 2020-10-15 11:14 | RADONC.CN ---
Radiation Oncology Hx/Consult Radiation Oncology Consult Date of Service: Oct 15, 2020 Pt Identifier Katiana Serna is a 85 year old female former smoker with a MARIELA NSCLC [id number] stage IA3. She is seen for consideration of SBRT. Diagnosis/Treatment History Oncologic History Patient was admitted to [facility] in December 2019 with metabolic encephalopathy. As part of workup she had a CT angio which showed a 1.5 cm MARIELA peripheral pulmonary nodule. She established care with Dr. Rodgers who ordered a PET-CT on 04/02/20 which showed mild uptake in the nodule. A follow up chest CT on 08/05/20 showed growth to 2.1 cm. 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 Given her age she was deemed inoperable. 02/06/20 PFT FVC 1.93 FEV1 1.51 FEV1/FVC 78% (106% predicted) Interval History She is here with her . She is followed by neurology for presumed Lewy body dementia. She has no complaints of chest pain. She has mild VIERA. Does not take any COPD meds. She has poor appetite, some recent weight loss per . No fevers/chills. Past Medical History: HTN HPL Hypothyroid GERD Depression Dementai (presumed Lewy Body) Past Surgical History: Hysterectomy Laminextomy Family History: No family history of cancer Social History: 30 pack year former smoker quit 1980s Allergies / Meds Allergies: Coded Allergies: No Known Allergies (Unverified , 09/25/20) Home Meds Reported Medications Pimavanserin Tartrate (Nuplazid) 34 Mg Capsule, 34 MG PO DAILY 09/25/20 Metoprolol Succinate (Metoprolol Succinate) 25 Mg Tab.er.24h, 25 MG PO BID, TAB 09/25/20 Aspirin (Ecotrin) 81 Mg Tablet.dr, 81 MG PO DAILY, TAB 09/20/20 Paroxetine (Paroxetine HCl) 10 Mg Tablet, 10 MG PO DAILY NEW MED, NOT STARTED 03/06/20 Donepezil HCl (Donepezil HCl) 10 Mg Tablet, 10 MG PO DAILY, TAB 12/31/19 Omeprazole (Omeprazole) 40 Mg Capsule.dr, 40 MG PO DAILY 11/14/19 Levothyroxine Sodium (Synthroid) 50 Mcg Tablet, 50 MCG PO DAILY 11/14/19 Amlodipine/Atorvastatin (Amlodipine-Atorvast 5-10 mg) 1 Each Tablet, 1 TAB PO DAILY 02/15/19 Losartan Potassium (Losartan Potassium) 50 Mg Tablet, 50 MG PO DAILY 02/15/19 Review of Systems Constitutional: Denies: Chills, Fever, Night Sweats Eyes: Denies: Pain, Vision change HEENT: Denies: Head Aches, Dysphagia, Sore Throat Skin: Denies: Rash, Lesions, Bruising Pulmonary: Denies: Dyspnea, Cough Cardiovascular: Denies: Chest Pain, Palpitations, Edema Gastrointestinal: Denies: Nausea, Vomiting, Abdominal Pain, Diarrhea Genitourinary: Denies: Dysuria, Frequency, Incontinence Hematologic: Denies: Bruising, Petecchia, Enlarged Lymph Nodes Musculoskeletal: Denies: Neck pain, Back pain Neurological: Denies: Weakness, Numbness, Incoordination Psych: Reports: Mood Normal; Denies: Memory Issues, Thoughts of Self Harm Vital Signs Ht 62" Wt 148 lbs BMI 27 T 97 P 69 RR 18 BP 156/78 O2 98% Pain 0 Fatigue 0 General Exam: Positive: Alert, Cooperative, No Acute Distress Eye Exam: Positive: PERRLA, EOMI ENT EXAM: Positive: Mucous membr. moist/pink, Pharynx Normal Neck Exam: Negative: Thyromegaly, Lymphadenopathy Chest Exam: Positive: Normal air movement; Negative: Rales, Rhonchi, Wheezing Heart Exam: Positive: Rate Normal, Regular Rhythm Abdomen Exam: Positive: Soft; Negative: Tenderness, Mass Extremity Exam: Negative: Edema, Tenderness Skin Exam: Positive: Nl turgor and temperature; Negative: Rash, Breakdown, Lesion, Pruritus, Other skin issue Psych Exam: Positive: Mental status NL, Mood NL, Memory Intact; Negative: Oriented x 3 (Disoriented to date) Diagnostic and Laboratory Diagnostic Review Radiologic images, relevant labs and pathology reports were personally reviewed and discussed with Ms. Serna. Assessment and Plan Impression Ms. Serna is a 85 year old female former smoker with a MARIELA NSCLC [id number] stage IA3. She is seen for consideration of SBRT. Stage NSCLC MARIELA stage IA3 [id number] Performance Status ECOG 1 Plan We had an extensive discussion with Ms. Serna regarding the diagnosis at hand and available therapeutic options. She has a growing peripheral MARIELA lesion which was incidentally discovered in December 2019 and has grown on serial scans and was biopsied and proven NSCLC. She is not an operative candidate secondary to age and comorbidities. She is however a good candidate for SBRT to address this lesion. I recommend 60 Gy in 5 fractions with DCA planning and 4DCT/ITV simulation. I reviewed the local control data with them in detail. They are in agreement with the approach. We discussed the logistics of receiving radiation therapy in detail including the need for a 1-time planning session. This can occur next week We reviewed the side effects of treatment including fatigue, 5-8% pneumonitis risk and possible late chest wall pain due to the proximity of the lesion to the left lateral chest wall. After discussing the risks, benefits and alternatives to radiation therapy, Ms. Serna was amenable to pursuing radiotherapy. All questions were answered to the patient's satisfaction. We instructed the patient that if there were any questions,concerns or changes in clinical status in the interim to contact us. Recommendations SBRT to the MARIELA lesion 60 Gy in 5 fractions as described above Simulation in the coming week Billing Statement Total time of [31] minutes was spent preparing for the visit [3], obtaining HPI [3], examining the patient [2], reviewing diagnostic tests [5], discussing management options [9], coordinating care [1], and writing this note [8]. RICHARD CISSE MD Oct 15, 2020 11:14
== END ==
LOC: M ONCR 10:08
PROVIDERS: ATTEND General Practice
DX: C34.90 Malignant neoplasm of unspecified part of unspecified bronchus or lung (principal)

== ENCOUNTER 2020-10-22 10:15 | Outpatient (RCR) | payer MEDICARE, OTHER | END 2020-10-27 | LOC: M ONCR 10:15 | PROVIDERS: ATTEND General Practice | DX: C34.12 Malignant neoplasm of upper lobe, left bronchus or lung (principal) ==

== ENCOUNTER 2020-11-08 10:48 | Outpatient (RCR) | payer MEDICARE, OTHER | END 2020-11-27 | LOC: M ONCR 10:48 | PROVIDERS: ATTEND General Practice | DX: C34.12 Malignant neoplasm of upper lobe, left bronchus or lung (principal) ==

== ENCOUNTER → 2020-12-23 | Outpatient (REF) | payer MEDICARE, OTHER ==
[~2020-12-23] MED LIST changes: +BACTDSTA PO; -SULF1TAB93 PO
[2020-12-23 14:28] LABS: HEMATOCRIT 38.3 % (36.0-47.0); HEMOGLOBIN 11.7 g/dl (12.0-15.5); MEAN CORPUSCULAR HEMOGLOBIN 29.4 pg (27.0-33.0); MEAN CORPUSCULAR HGB CONC 30.5 g/dl (32.0-36.5); MEAN CORPUSCULAR VOLUME 96.2 fl (80.0-96.0); PLATELET COUNT, AUTOMATED 193 10^3/uL (150-450); RED BLOOD COUNT 3.98 10^6/uL (4.00-5.40); WHITE BLOOD COUNT 5.9 10^3/uL (4.0-10.0)
[2020-12-23 15:04] LABS: ALBUMIN 3.6 GM/DL (3.2-5.2); BILIRUBIN,TOTAL 0.3 MG/DL (0.2-1.0); CALCIUM LEVEL 9.3 MG/DL (8.8-10.2); CREATININE FOR GFR 1.22 MG/DL (0.55-1.30); FREE T4 1.08 NG/DL (0.76-1.46); GLOMERULAR FILTRATION RATE 44.7 (>32); POTASSIUM SERUM 4.9 MEQ/L (3.5-5.1); THYROID STIMULATING HORMONE 1.78 uIU/ML (0.358-3.740); TOTAL 25(OH) VITAMIN D 25.1 NG/ML (30.0-100.0); TOTAL PROTEIN 7.1 GM/DL (6.4-8.2)
== END ==
LOC: M SFHCLERA 11:35
PROVIDERS: ATTEND Nurse Practitioner Family
DX: R20.2 Paresthesia of skin (principal); R25.3 Fasciculation; Z79.899 Other long term (current) drug therapy

== ENCOUNTER → 2020-12-23 | Outpatient (CLI) | payer MEDICARE, OTHER ==
--- NOTE | 2020-12-23 14:32 | REPPI ---
INDICATION: PAIN. COMPARISON: None TECHNIQUE: AP and frog-lateral views FINDINGS: Moderate asymmetric hip joint space narrowing is seen with prominent marginal osteophytosis. Degenerative changes seen involving the pubis symphysis. The bones are diffusely demineralized. Degenerative changes seen involving the sacroiliac joints. There is no evidence of acute fracture, dislocation, or subluxation. IMPRESSION: Chronic changes as described above. <Electronically signed by Xavier Fox > 12/23/20 [id number]
== END ==
LOC: M PLAIMG 12:12
PROVIDERS: ATTEND Nurse Practitioner Family
DX: M16.0 Bilateral primary osteoarthritis of hip (principal); M25.559 Pain in unspecified hip; R20.2 Paresthesia of skin; R25.3 Fasciculation; Z79.899 Other long term (current) drug therapy
CPT/HCPCS: 36415; 73502; 80053; 82306; 82607; 84439; 84443; 85027; G0463

== ENCOUNTER → 2021-01-14 | Outpatient (CLI) | payer MEDICARE, OTHER ==
--- NOTE | 2021-01-14 10:32 | REP ---
INDICATION: AAA WITHOUT RUPTURE. COMPARISON: None TECHNIQUE: Multiple ultrasonographic images of the abdominal aorta were obtained from the level of the celiac axis to the aortoiliac bifurcation in the longitudinal and transverse scan planes. FINDINGS: The maximal AP dimension of the abdominal aorta as measured in the longitudinal scan plane is 4.8 cm. This involves the distal aorta in an infrarenal location and measures 6.8 cm in length. There is no evidence of concomitant common iliac arterial ectasia. IMPRESSION: Infrarenal abdominal aortic aneurysm as described above. <Electronically signed by Xavier Fox > 01/14/21 [id number]
== END ==
LOC: M RAD 06:54
PROVIDERS: ATTEND Family Medicine
DX: I71.4 Abdominal aortic aneurysm, without rupture (principal)

== ENCOUNTER → 2021-02-04 | Outpatient (CLI) | payer MEDICARE, OTHER ==
[~2021-02-04] MED LIST changes: +ISOVUE-370 76% 100ML VIAL As Ordered ONE
--- NOTE | 2021-02-04 14:12 | REP ---
INDICATION: LUNG CA COMPARISON: Multiple the latest 06/05/2020 noncontrast enhanced exam TECHNIQUE: Standard helical technique after the intravenous administration of 100 cc Isovue 370. FINDINGS: There is mediastinal adenopathy status quo. No hilar adenopathy has developed. There are no pleural or pericardial effusions. There is no change in appearance of the imaged upper abdomen.There is a known hiatal hernia. Evaluation of the osseous structures shows no significant change from the prior exam. Evaluation of the lung ch shows left upper lobe pleural based mass density which has increased in size from the prior exam now having a maximal dimension of 3.4 cm. Additionally, there is a new asymmetric density in the left upper lobe at that same level having a maximal dimension of approximately 3.4 cm. It is both ground-glass and solid asymmetric features. There is a new asymmetric density in the superior segment of the left lower lobe also having both ground-glass and solid nodular components and measuring approximately 1.2 cm. There is biapical pleuroparenchymal scarring which appears stable. IMPRESSION: Three abnormal left lung field findings as described above. Exact etiology uncertain. Suggest re-evaluation with PET-CT so it can be compared to the prior PET-CT of 04/02/2020 if clinically relevant. Other findings as described above. <Electronically signed by Xavier Fox > 02/04/21 [id number]
== END ==
LOC: M RAD 13:25
PROVIDERS: ATTEND General Practice
DX: R91.8 Other nonspecific abnormal finding of lung field (principal)
CPT/HCPCS: 71260; Q9967

== ENCOUNTER → 2021-02-12 | Outpatient (CLI) | payer MEDICARE, OTHER ==
[~2021-02-12] MED LIST changes: +BACL10TA2; -ISOVUE-370 76% 100ML VIAL As Ordered ONE; +OMEP40CA4 PO; -OMEP40CA97 PO
--- NOTE | 2021-02-12 16:40 | RADONC ---
Radiation Oncology Hx/FUP Radiation Oncology Hx/FUP Date of Service: Feb 12, 2021 Pt Identifier Katiana Serna is a 85 year old female former smoker with a MARIELA NSCLC [id number] stage IA3. She underwent SBRT for this lesion 60 Gy in 5 fractions completed 11/08/20. She is seen today for follow up and survivorship care. Diagnosis/Treatment History Oncologic History Patient was admitted to [facility] in December 2019 with metabolic encephalopathy. As part of workup she had a CT angio which showed a 1.5 cm MARIELA peripheral pulmonary nodule. She established care with Dr. Rodgers who ordered a PET-CT on 04/02/20 which showed mild uptake in the nodule. A follow up chest CT on 08/05/20 showed growth to 2.1 cm. EBUS biopsy was performed on 09/25/20 and returned adenocarcinoma. Given her age she was deemed inoperable. She completed SBRT 60 Gy in 5 fractions 11/04/20-11/08/20 Recent data: 02/04/21 CT chest with contrast MARIELA lesion with treatment effect. No graham progression. Interval development of a LLL nodular opacity 1.2 cm Survivorship: Test Due Next Last result Notes TSH, T4* 6m post-tx, then q1y N/A Carotid US* q10 y post-tx N/A Smoking cessation Assess annually if applicable N/A Quit previously Chest imaging As indicated, indefinite CT surveillance 04/2021 Indeterminate new LLL lesion Mammograms Min q1y, in eligible female patients N/A Not indicated given age Echocardiogram q10y post treatment if mediastinum treated N/A PFTs As indicated PRN CBC,CMP, Lipids q1y 2021 *If supraclavicular field treated Interval History Here with her . She offers no complaints pulmonary or otherwise. Linda athing is at baseline stable mild SOB and VIERA. No significant cough. No chest pain. Appetite and weight are stable. Current Therapy Surveillance Stage MARIELA NSCLC [id number] Stage IA3 Social History: 30 pack year former smoker quit 1980s Does not drink Allergies / Meds Allergies: Coded Allergies: No Known Allergies (Unverified , 09/25/20) Home Meds Reported Medications Baclofen (Baclofen) 10 Mg Tablet 02/12/21 Pimavanserin Tartrate (Nuplazid) 34 Mg Capsule, 34 MG PO DAILY 09/25/20 Metoprolol Succinate (Metoprolol Succinate) 25 Mg Tab.er.24h, 25 MG PO BID, TAB 09/25/20 Aspirin (Ecotrin) 81 Mg Tablet.dr, 81 MG PO DAILY, TAB 09/20/20 Paroxetine (Paroxetine HCl) 10 Mg Tablet, 10 MG PO DAILY NEW MED, NOT STARTED 03/06/20 Donepezil HCl (Donepezil HCl) 10 Mg Tablet, 10 MG PO DAILY, TAB 12/31/19 Levothyroxine Sodium (Synthroid) 50 Mcg Tablet, 50 MCG PO DAILY 11/14/19 Amlodipine/Atorvastatin (Amlodipine-Atorvast 5-10 mg) 1 Each Tablet, 1 TAB PO DAILY 02/15/19 Losartan Potassium (Losartan Potassium) 50 Mg Tablet, 50 MG PO DAILY 02/15/19 Discontinued Reported Medications Omeprazole (Omeprazole) 40 Mg Capsule.dr, 40 MG PO DAILY 11/14/19 Review of Systems Review of Systems Constitutional: Denies: Fever, Fatigue Eyes: Denies: Pain HEENT: Denies: Head Aches Skin: Denies: Rash Pulmonary: Reports: Dyspnea; Denies: Cough, Pleuritic Chest Pain Cardiovascular: Denies: Chest Pain, Edema Gastrointestinal: Denies: Abdominal Pain Hematologic: Denies: Bruising, Bleeding Excessively Musculoskeletal: Denies: Neck pain, Back pain Neurological: Denies: Weakness, Numbness Psych: Reports: Mood Normal Physical Examination Vital Signs Wt 159 lbs (from 150 lbs on 11/04/20) T 97 P 58 RR 16 BP 175/79 O2 92% on RA Pain 0 Fatigue 0 General Exam: Positive: Alert, Cooperative, No Acute Distress Eye Exam: Positive: PERRLA, EOMI ENT EXAM: Positive: Atraumatic Neck Exam: Positive: Supple; Negative: Lymphadenopathy Chest Exam: Positive: Clear to auscultation, Diminished (Quiet breath sounds throughout no wheezing) Heart Exam: Positive: Rate Normal Abdomen Exam: Positive: Soft Skin Exam: Positive: Nl turgor and temperature Neuro Exam: Positive: Normal Gait, Normal Speech, Cranial Nerves 3-12 NL Psych Exam: Positive: Mental status NL Diagnostic and Laboratory Diagnostic Review Radiologic images, relevant labs and pathology reports were personally reviewed and discussed with Ms. Serna. Assessment and Plan Impression Assessment Ms. Serna is a 85 year old female with a history of former smoker with a MARIELA NSCLC [id number] stage IA3. She underwent SBRT for this lesion 60 Gy in 5 fractions completed 11/08/20. She is seen today for follow up and survivorship care. Her current CT chest is equivocal with respect to response, I cannot say that the lesion has diminished in size, nor does it seem to have grown in a manner consistent with progression, and it does exhibit the usual intervening post-SBRT parenchymal changes, thus I propose obtaining a follow up study in 3 months time which may be more demonstrative, if there is question on this next scan, then PET-CT could be obtained. There is however, a new lesion of concern inferior to the treated lesion in the LLL outside the radiation field which is a 1.2 cm nodular density that resembles a new primary malignancy. Special attention on the next scan for this spot is worthwhile as well. If the MARIELA lesion proves to be in full response, and this new lesion grows again, then I would be inclined to offer SBRT to treat it empirically rather than subject her to invasive biopsy. Clinically she is doing very well, without any evidence of side effects from her treatment. Performance Status ECOG 1 Plan Follow up in [address] chest Ms. Serna was encouraged to call with questions or concerns in the interim p jona. Billing Statement Total time of [28] minutes was spent preparing for the visit [2], obtaining HPI [4], examining the patient [2], reviewing diagnostic tests [7], discussing management options [5], coordinating care [1], and writing this note [7]. RICHARD CISSE MD Feb 12, 2021 16:39
== END ==
LOC: M ONCR 13:52
PROVIDERS: ATTEND General Practice
DX: C34.12 Malignant neoplasm of upper lobe, left bronchus or lung (principal); Z79.899 Other long term (current) drug therapy; Z79.890 Hormone replacement therapy; Z87.891 Personal history of nicotine dependence; Z92.3 Personal history of irradiation

== ENCOUNTER → 2021-04-30 | Outpatient (CLI) | payer MEDICARE, OTHER ==
[2021-04-30 14:40] LABS: ALBUMIN 3.2 GM/DL (3.2-5.2); BILIRUBIN,TOTAL 0.3 MG/DL (0.2-1.0); CREATININE FOR GFR 1.3 MG/DL (0.55-1.30); GLOMERULAR FILTRATION RATE 41.5 (>32); POTASSIUM SERUM 4.7 MEQ/L (3.5-5.1); TOTAL PROTEIN 6.6 GM/DL (6.4-8.2)
== END ==
LOC: M ONCR 13:47
PROVIDERS: ATTEND General Practice
DX: C34.12 Malignant neoplasm of upper lobe, left bronchus or lung (principal)

== ENCOUNTER → 2021-05-07 | Outpatient (CLI) | payer MEDICARE, OTHER ==
[~2021-05-07] MED LIST changes: +ISOVUE-370 76% 100ML VIAL As Ordered ONE
--- NOTE | 2021-05-07 15:51 | REP ---
INDICATION: LUNG CA. Malignant neoplasm the upper lobe the left lung diagnosis October 14, 2020. Post radiation therapy. COMPARISON: Comparison is made with prior CT studies from August 05, 2020 and February 04, 2021. TECHNIQUE: Helical scanning is acquired following the intravenous injection of 75 mL of Isovue 370. 3 mm axial images are generated. Coronal and sagittal MPR and coronal MIP images are provided. FINDINGS: There is a metallic fiducial marker again noted in the posterior segment of the left upper lobe. Adjacent to this and superior to this, there is a curvilinear horizontally oriented band like opacity consistent with atelectasis and scarring post radiation therapy. The previously noted peripheral spiculated mass lesion is not apparent or is incorporated in the fibrosis. The subpleural lung appears clear. There is a new non solid area of parenchymal 0 opacity which also appears linear on sagittal MPR images in the superior segment of the left lower lobe which may be post radiation changes well. This is increased in size since the February 04, 2021 study. No new solid lesion is appreciated. There is linear fibrosis in the left base. There is a moderate size hiatal hernia. Some vascular calcification is observed. There is good opacification of the pulmonary arterial tree and thoracic aorta. No acute vascular abnormality is seen. No adrenal mass is observed. There are 2 small cysts in the liver. At the bottom of the imaging field of view, aneurysmal dilation of the abdominal aorta is noted. at this level, the abdominal aorta measures 4.3 cm in greatest AP dimension. The aneurysm is incompletely included in the field of view. In comparison with CT abdomen and pelvis from December 31, 2019, this portion of the abdominal aorta does not appear to be changed. IMPRESSION: A linear pattern of post radiation fibrosis is seen in the left upper lobe. The left upper lobe lung nodule is not well visualized and may be resolved. There is an adjacent area of fibrosis in the superior segment of the right lower lobe. Infrarenal abdominal aortic aneurysm. Hiatal hernia. <Electronically signed by Augusto Clinton > 05/07/21 [id number]
== END ==
LOC: M RAD 14:35
PROVIDERS: ATTEND General Practice
DX: C34.12 Malignant neoplasm of upper lobe, left bronchus or lung (principal)
CPT/HCPCS: 71260; Q9967

== ENCOUNTER → 2021-05-14 | Outpatient (CLI) | payer MEDICARE, OTHER ==
[~2021-05-14] MED LIST changes: -ISOVUE-370 76% 100ML VIAL As Ordered ONE
--- NOTE | 2021-05-15 10:41 | RADONC ---
Radiation Oncology Hx/FUP Radiation Oncology Hx/FUP Date of Service: May 14, 2021 Pt Identifier Katiana Serna is a 85 year old female former smoker with a MARIELA NSCLC [id number] stage IA3. She underwent SBRT for this lesion 60 Gy in 5 fractions completed 11/08/20. She is seen today for follow up and survivorship care. Diagnosis/Treatment History Oncologic History Patient was admitted to [facility] in December 2019 with metabolic encephalopathy. As part of workup she had a CT angio which showed a 1.5 cm MARIELA peripheral pulmonary nodule. She established care with Dr. Rodgers who ordered a PET-CT on 04/02/20 which showed mild uptake in the nodule. A follow up chest CT on 08/05/20 showed growth to 2.1 cm. EBUS biopsy was performed on 09/25/20 and returned adenocarcinoma. Given her age she was deemed inoperable. She completed SBRT 60 Gy in 5 fractions 11/04/20-11/08/20. 02/04/21 CT chest showing MARIELA lesion with treatment effect. No graham progression. Interval development of a LLL nodular opacity 1.2 cm. Recent data: 05/07/21 CT chest IMPRESSION: A linear pattern of post radiation fibrosis is seen in the left upper lobe. The left upper lobe lung nodule is not well visualized and may be resolved. There is an adjacent area of fibrosis in the superior segment of the left lower lobe. Infrarenal abdominal aortic aneurysm. Hiatal hernia. Survivorship: Test Due Next Last result Notes TSH, T4* 6m post-tx, then q1y N/A Carotid US* q10 y post-tx N/A Smoking cessation Assess annually if applicable N/A Quit previously Chest imaging As indicated, indefinite CT surveillance 07/2021 @ [facility] 01/2021 Indeterminate new LLL lesion Mammograms Min q1y, in eligible female patients N/A Not indicated given age Echocardiogram q10y post treatment if mediastinum treated N/A PFTs As indicated PRN CBC,CMP, Lipids q1y 2021 *If supraclavicular field treated Interval History Katiana feels well. No VIERA, cough, CP, or pleuritic pain. She has good appetite and energy levels. She is moving to [facility] in the coming weeks with her to be closer to family. Current Therapy Surveillance Stage MARIELA NSCLC [id number] Stage IA3 Social History: 30 pack year former smoker quit 1980s Does not drink Allergies / Meds Allergies: Coded Allergies: No Known Allergies (Unverified , 09/25/20) Home Meds Reported Medications Pimavanserin Tartrate (Nuplazid) 34 Mg Capsule, 34 MG PO DAILY 09/25/20 Metoprolol Succinate (Metoprolol Succinate) 25 Mg Tab.er.24h, 25 MG PO BID, TAB 09/25/20 Aspirin (Ecotrin) 81 Mg Tablet.dr, 81 MG PO DAILY, TAB 09/20/20 Donepezil HCl (Donepezil HCl) 10 Mg Tablet, 10 MG PO DAILY, TAB 12/31/19 Levothyroxine Sodium (Synthroid) 50 Mcg Tablet, 50 MCG PO DAILY 11/14/19 Amlodipine/Atorvastatin (Amlodipine-Atorvast 5-10 mg) 1 Each Tablet, 1 TAB PO DAILY 02/15/19 Losartan Potassium (Losartan Potassium) 50 Mg Tablet, 50 MG PO DAILY 02/15/19 Discontinued Reported Medications Baclofen (Baclofen) 10 Mg Tablet 02/12/21 Paroxetine (Paroxetine HCl) 10 Mg Tablet, 10 MG PO DAILY NEW MED, NOT STARTED 03/06/20 Review of Systems Review of Systems Constitutional: Denies: Weakness, Fatigue, Weight Loss Eyes: Denies: Pain HEENT: Denies: Head Aches Skin: Denies: Rash Pulmonary: Denies: Dyspnea, Cough Cardiovascular: Denies: Chest Pain, Palpitations Gastrointestinal: Denies: Abdominal Pain Musculoskeletal: Denies: Neck pain, Back pain, Leg pain Neurological: Reports: Weakness, Numbness Psych: Denies: Mood Normal Physical Examination Vital Signs Wt 158 lbs T 98 P 64 RR 18 BP 173/68 O2 99% Pain 0 Fatigue 0 General Exam: Alert, Cooperative, No Acute Distress Eye Exam: PERRLA, EOMI ENT EXAM: Atraumatic Neck Exam: Supple Chest Exam: Clear to auscultation, Normal air movement Heart Exam: Rate Normal Abdomen Exam: Soft Extremity Exam: Negative: Edema Skin Exam: Nl turgor and temperature; Negative: Rash Neuro Exam: Normal Gait, Normal Speech, Cranial Nerves 3-12 NL Psych Exam: Mental status NL Diagnostic and Laboratory Diagnostic Review Radiologic images, relevant labs and pathology reports were personally reviewed and discussed with Ms. Serna. Assessment and Plan Impression Assessment Ms. Serna is a 85 year old female former smoker with a MARIELA NSCLC [id number] stage IA3. She underwent SBRT for this lesion 60 Gy in 5 fractions completed 11/08/20. She is seen today for follow up and survivorship care. She is doing well clinically, she and are poised to relocate to [facility] ([facility] This is a permanent move. She will need follow up down there. I will facilitate this. When they establish permanently in a town (they are staying with family to start) I will refer her to the radiation oncology department at the appropriate facility. In the meantime owing to the indeterminate nature of the LLL opacity, which could just be fibrosis post-RT I will obtain a CT chest in 3 months and follow up via telehealth about it. The treated MARIELA lesion is obliterated with only intervening fibrosis as a remnant. Performance Status ECOG 1 Plan Follow up in 3 months (telehealth) with CT chest Ms. Serna was encouraged to call with questions or concerns in the interim period. Billing Statement Total time of [25] minutes was spent preparing for the visit [1], obtaining HPI [5], examining the patient [2], reviewing diagnostic tests [3], discussing management options [5], coordinating care [2], and writing this note [7]. RICHARD CISSE MD May 15, 2021 10:41
== END ==
LOC: M ONCR 15:05
PROVIDERS: ATTEND General Practice
DX: C34.12 Malignant neoplasm of upper lobe, left bronchus or lung (principal); Z79.82 Long term (current) use of aspirin; Z79.899 Other long term (current) drug therapy; Z87.891 Personal history of nicotine dependence; Z92.3 Personal history of irradiation

== ENCOUNTER → 2021-05-15 | Outpatient (CLI) | payer MEDICARE, OTHER ==
--- NOTE | 2021-05-15 15:53 | REP ---
INDICATION: CLAUDICATION COMPARISON: None. TECHNIQUE: Real time wilkinson scale and Duplex Doppler evaluation of the bilateral lower extremity arterial vasculature using linear high frequency transducer. FINDINGS: Wilkinson scale and duplex doppler images demonstrate minimal scattered plaque and arterial wall calcification bilaterally. There are diffuse biphasic waveforms bilaterally. There is no evidence of hemodynamically significant stenosis or occlusion. Incidental note is made of a Taylor's cyst on the left 3.4 x 3.1 x 3.1 cm. Peak systolic velocities (cm/sec) Common femoral artery: Right 105; Left 104 Profunda femoris: Right 105; Left 118 SFA (proximal): Right 108; Left 89 SFA (mid): Right 97; Left 98 SFA (distal): Right 85; Left 70 Popliteal artery: Right 63; Left 74 YONATAN (prox.): Right 60; Left 90 Tibioperoneal trunk: Right 41; Left 74 ACCESS REPRESENTATIVE (prox.): Right 57; Left 84 ACCESS REPRESENTATIVE (distal): Right 39; Left 79 YONATAN (distal): Right 101; Left 47 IMPRESSION: Atheromatous changes but no focal occlusion or stenosis. <Electronically signed by Aaron Wilkinson > 05/15/21 [id number]
== END ==
LOC: M RAD 13:52
PROVIDERS: ATTEND Surgery Vascular Surgery
DX: I72.4 Aneurysm of artery of lower extremity (principal)